=== PATIENT | male | born 1945 | race Caucasian/White ===

== ENCOUNTER → 2016-12-24 | Outpatient (CLI) | payer OTHER | LOC: BMCIMAGING 16:13 | PROVIDERS: ATTEND Emergency Medicine | DX: J93.9 Pneumothorax, unspecified (principal); S22.41XA Multiple fractures of ribs, right side, initial encounter for closed fracture; M48.54XA Collapsed vertebra, not elsewhere classified, thoracic region, initial encounter for fracture ==

== ENCOUNTER 2016-12-26 13:53 | Inpatient (IN) | payer OTHER ==
--- NOTE | 2016-12-26 14:17 | EDPHY ---
H & P Smoking Status: Never smoked Time Seen by Provider: 12/26/16 14:04 HPI/ROS: CHIEF COMPLAINT: Known pneumothorax HISTORY OF PRESENT ILLNESS: 71-year-old male history of Parkinson's disease, no history of anticoagulant use, sustained a mechanical fall 2 days ago injuring his right wrist and right ribs. Subsequently seen at [facility] diagnosed with multiple right-sided rib fractures and small apical pneumothorax, told to return in 2 days for recheck. Went to urgent care today for recheck in because he had worsening symptoms he is referred to the emergency department for further evaluation. Also complaining of right wrist pain which was not initially present 2 days ago. This was a mechanical not a syncopal episode according to the . He did impact his head as well. No headache. No nausea or vomiting. No midline C-spine pain. No change in mental status according to . PRIMARY CARE PROVIDER:Dr. Varsha Rea REVIEW OF SYSTEMS: A ten point review of systems was performed and is negative with the exception of the items mentioned in the HPI PAST MEDICAL & SURGICAL HISTORY: Parkinson's disease. Right femoral neck fracture history. SOCIAL HISTORY:nonsmoker lives with PHYSICAL EXAM (Prior to examination, patient consented to physical exam, hands were washed and my usual and customary physical exam procedures followed) 1) GENERAL: thin, alert and oriented. 2) HEAD: Normocephalic, atraumatic 3) HEENT: Pupils equal, round, reactive to light bilaterally. Sclera anicteric. Right facial and mandible ecchymosis with no underlying pain. Teeth are well aligned. No TMJ pain. No raccoon eyes no Cevallos sign. No rhinorrhea. No hemotympanum. No otorrhea. 4) NECK: Full range of motion . No JVD. No tracheal deviation. 5) LUNGS: Decreased breath sounds right side, tender to palpation right ribs. No crepitus. 6) HEART: Regular rate and rhythm, no murmur, no heave, no gallop. 7) ABDOMEN: No guarding, no rebound, no focal tenderness, negative McBurney's, negative Mcnally's, negative Rovsing's, negative peritoneal sign, no signs of trauma. 8) MUSCULOSKELETAL: right upper extremity: Soft tissue swelling and tender to palpation distal radius. Intact skin. Radial ulnar median nerve function intact. otherwise, moving all extremities, no focal areas of tenderness, no obvious trauma. No peripheral edema or discoloration. 9) BACK: No CVA tenderness,. 10) SKIN: No rash, no petechiae. 11) Psychiatric: Patient is oriented X 3, there is no agitation. DIFFERENTIAL DIAGNOSIS: no particular include but limited to rib fracture, pneumothorax, hemothorax, wrist fracture (April,Clementine Ivania) Constitutional: Initial Vital Signs Temperature (C) 36.8 C 12/26/16 14:01 Heart Rate 87 12/26/16 14:01 Respiratory Rate 16 12/26/16 14:01 Blood Pressure 68/52 L 12/26/16 14:01 O2 Sat (%) 89 L 12/26/16 14:01 O2 Delivery Mode Nasal Cannula O2 (L/minute) 2.5 Allergies/Adverse Reactions: No Known Allergies Allergy (Verified 12/26/16 13:59) Home Medications: Medication Instructions Recorded Baclofen [Baclofen 10 mg (*)] 10 - 20 mg PO HS 12/16/14 Carbidopa/Levo Cr 50/200Mg 1 tab PO 08,12,16,20 12/16/14 [SINEMET CR 50/200 MG (*)] Entacapone [Comtan] 200 mg PO 08,12,16,20 12/16/14 Multivitamins [Multivitamin (*)] 1 each PO DAILY 12/16/14 Venlafaxine Xr [Effexor Xr 37.5MG 37.5 mg PO DAILY 12/16/14 (*)] clonazePAM [Klonopin (*)] 0.5 mg PO HS 12/16/14 Pantoprazole Sodium [Protonix 40mg 40 mg PO DAILY #30 tab 12/27/14 (*)] Acetaminophen [Tylenol Extra 500 mg PO Q6H PRN #20 tablet 12/28/14 Strength] Droxidopa [Northera] 100 mg PO 08,14,20 06/25/15 Hydrocortisone 0.5% 1 jd TP BID #0 cream 07/04/15 [Hydrocortisone 0.5% cream (*)] Polyethylene Glycol 3350 [Miralax 17 gm PO DAILY PRN #0 pkt 07/04/15 17 gm (*)] Sennosides/Docusate Sodium 1 - 2 tab PO BID #0 tab 07/04/15 [Senokot-S] Quetiapine Fumarate 12/26/16 MDM/Departure - MDM Diagnostics: Imaging Impressions Chest CT 12/26/16 14:13 Impression: 1. Large right tension pneumothorax with a small right pleural effusion. 2. Mildly displaced right third through seventh rib fractures with a probable nondisplaced right eighth rib fracture. The right fourth rib is also fractured posteriorly. 3. Additional findings as above. Findings discussed with Papi Iqbal PA-C on 12/26/2016 with preliminary findings at 1509 and final report at [address] 12/26/16 14:13 Impression: 1. No acute intracranial findings. 2. Diffuse cerebral atrophy with scattered periventricular and subcortical low attenuation consistent with chronic microvascular ischemic gliosis. Findings discussed with Papi Iqbal PA-C on 12/26/2016 at 1512 hours. Wrist X-Ray 12/26/16 14:13 Impression: 1. Chip avulsion from the the radial styloid, uncertain age. 2. Extensive chondrocalcinosis. Procedures: Procedure: Fracture treatment. The patient had x-rays taken and I confirmed that the patient had a fractured right radial styloid . a Velcro thumb spica splint was applied by ER forklift technician. After application of the splint I returned and re-examined the patient. The splint was adequately immobilizing the joint and distal to the splint the patient's circulation and sensation were intact. Patient shows no signs of compartment syndrome. Was given orthopedic precautions. (Clementine Iqbal Ivania ) Medications Given: Discontinued Medications Fentanyl (Sublimaze) 100 mcg IVP ONCE ONE Stop: 12/26/16 16:06 Last Admin: 12/26/16 16:15 Dose: 100 mcg Ketorolac Tromethamine (Toradol) 30 mg IVP EDNOW ONE Stop: 12/26/16 14:40 Last Admin: 12/26/16 14:51 Dose: 30 mg Lorazepam (Ativan Injection) 1 mg IVP EDNOW ONE Stop: 12/26/16 14:40 Last Admin: 12/26/16 14:51 Dose: 1 mg Morphine Sulfate (Morphine) 2 mg IVP EDNOW ONE Stop: 12/26/16 14:26 Last Admin: 12/26/16 14:33 Dose: 2 mg ED Course/Re-evaluation: 3:05 p.m.: Discussed the CT imaging results with Dr. Luis Petty showing a large right-sided pneumothorax. Trauma surgery has been paged (Clementine Iqbal) I evaluated this patient with Papi iqbal. We reviewed the CT scan revealing a much larger pneumothorax. We have consulted surgery and chest tube has been placed patient is comfortable and will go up to the floor. (Luis Petty) - Depart Disposition: [facility] Inpatient Acute Clinical Impression: Pneumothorax, right, History of Parkinson's disease Multiple rib fractures Qualifiers: Encounter type: initial encounter Fracture type: closed Laterality: right Qualified Code(s): S22.41XA - Multiple fractures of ribs, right side, initial encounter for closed fracture Radial styloid fracture Qualifiers: Encounter type: initial encounter Fracture type: closed Fracture alignment: displaced Laterality: right Qualified Code(s): S52.511A - Displaced fracture of right radial styloid process, initial encounter for closed fracture Condition: Fair
[2016-12-26] MEDS ORDERED: IOPAMIDOL (ISOVUE-300) 100 ML BTL IV ONE (14:25)
[2016-12-26] MEDS ORDERED: KETOROLAC 30 MG/1 ML SDV IVP ONE (14:39)
[2016-12-26] MEDS ORDERED: LORazepam 2 MG/ML INJ IVP ONE (14:39)
[2016-12-26 15:14] LABS: % IMMATURE GRANULYOCYTES 0.4 % (0.0-1.1); ABSOLUTE IMMATURE GRANULOCYTES 0.03 10^3/uL (0.00-0.10); ADD DIFF? NO; ADD MORPH? NO; ADD SCAN? NO; ATYPICAL LYMPHOCYTE FLAG 10 (0-99); FRAGMENT RBC FLAG 0 (0-99); HEMATOCRIT 41.3 % (40.0-51.0); HEMOGLOBIN 13.8 g/dL (13.7-17.5); LEFT SHIFT FLG 0 (0-99); LIPEMIA HEMOLYSIS FLAG 80 (0-99); MEAN CELL HEMOGLOBIN 30.3 pg (27.9-34.1); MEAN CELL HEMOGLOBIN CONCENTR. 33.4 g/dL (32.4-36.7); MEAN CELL VOLUME 90.6 fL (81.5-99.8); MEAN PLATELET VOLUME 9.4 fL (8.7-11.7); PLATELET CLUMPS FLAG 0 (0-99); PLATELET COUNT 236 10^3/uL (150-400); RED BLOOD CELL COUNT 4.56 10^6/uL (4.40-6.38)
[2016-12-26 15:19] LABS: INR 1.11 (0.83-1.16); PROTIME(PATIENT) 14.2 SEC (12.0-15.0)
[2016-12-26 15:20] LABS: ANION GAP 8 mEq/L (8-16); APTT 37.2 SEC (23.0-38.0); CALCIUM 9.2 mg/dL (8.5-10.4); CARBON DIOXIDE 23 mEq/l (22-31); CHLORIDE 106 mEq/L (97-110); CREATININE 0.9 mg/dL (0.7-1.3); GLOMERULAR FILTRATION RATE > 60; GLUCOSE 108 mg/dL (70-100); POTASSIUM 3.9 mEq/L (3.5-5.2); SODIUM 137 mEq/L (134-144)
[2016-12-26] MEDS ORDERED: fentaNYL 100 MCG/2 ML INJ ONE (15:35)
[2016-12-26] MEDS ORDERED: fentaNYL 100 MCG/2 ML INJ IVP ONE (16:05)
--- NOTE | 2016-12-26 16:59 | GHP ---
[f rep st] HISTORY AND PHYSICAL DATE OF ADMISSION: 12/26/2016 CHIEF COMPLAINT: Shortness of breath, status post mechanical fall. HISTORY OF PRESENT ILLNESS: This is a 71-year-old male with fairly advanced Parkinson's disease who presents to the emergency department today as a followup from a fall 2 days ago. Per the patient's report and chart review, he sustained a mechanical fall 2 days ago, landing on his right side, inju ring his right wrist and right ribs. He was subsequently seen by his primary care team at [facility] and diagnosed with multiple right-sided rib fractures and, at that time, a small apica l pneumothorax. He was told to follow up in 2 days for a recheck. He returned to [facility] today because he had worsening symptoms including shortness of breath and pain, an d given the fact that he had progressed, was referred to the [facility] Emergency Department for furt her evaluation. In the emergency department, he was found to be short of breath and hypoxic at room air and was subsequently placed on supplemental oxygen. He complained of right-sided chest and wri st pain, subsequently had imaging of his chest including a plain film and a CT scan. Briefly, the C T scan of his chest confirmed multiple right-sided rib fractures numbering 7 and 8 with a large righ t-sided pneumothorax with possible tension physiology and a small right-sided effusion. On greeting the patient, he is currently on supplemental oxygen. He is not complaining of shortness of breath and does not appear to be using any other accessory muscles for breathing. He states anna t he did not lose consciousness with his fall and that his main pain at this point in time is right- sided chest pain, right wrist pain 7/10 and worse in intensity, worse with inspiration, better with IV narcotics. PAST MEDICAL HISTORY: Advanced Parkinson's disease and a history of a right femoral neck fracture. PAST SURGICAL HISTORY: Repair of right femoral neck fracture. CURRENT MEDICATIONS: Include baclofen, Sinemet, entacapone, multivitamins, venlafaxine, Klonopin, P rotonix, acetaminophen, droxidopa, hydrocortisone, polyethylene glycol, senna and quetiapine. ALLERGIES: No known drug allergies. REVIEW OF SYSTEMS: A full 10-point review was performed and unless explicitly stated above, is othe rwise negative. PHYSICAL EXAMINATION: VITAL SIGNS: Blood pressure 120/54. Heart rate 96, and he is 94% on 4 L nasa l cannula. GENERAL: He is alert and oriented in no acute distress. Head has no signs of trauma, a lthough he does have what appears to be a healing lesion on his lip, which he states has been there for some time. I see no visible signs of trauma on his head. HEENT: His pupils are equal, round, and reactive to light and accommodation. His extraocular movements are intact. NECK: Soft, supple , nontender to palpation. No crepitus. No midline C-spine tenderness. CHEST: Tender on the right side. No crepitus appreciated. Lung sounds are distant on the right side. He is not using access ory muscles for breathing. CV: He has a regular rate and rhythm without any murmurs. ABDOMEN: So ft, nondistended, nontender. His pelvis is stable to both AP and lateral compression. EXTREMITIES: Warm, well perfused, and without any obvious signs of trauma. LABORATORY DATA: White blood cell count 7, H and H 13 and 41, platelets 236. Coags negative with a n INR of 1.1. Chemistries unremarkable with the exception of an elevated glucose at 108. CT scan o f his head shows no acute intracranial findings; however, it does show diffuse cerebral atrophy with scattered periventricular and subcortical low attenuation consistent with chronic microvascular isc hemic gliosis. Chest CT, again as stated above, shows large right-sided pneumothorax with small right-sided effusio n, question tension physiology with 3rd through 7th rib fractures and a probable line displaced righ t 8th rib fracture as well. Wrist: Plain film shows chip avulsion from the radial styloid, uncertain age and the extensive ramona drocalcinosis. ASSESSMENT AND PLAN: A 71-year-old male, status post mechanical fall, now with worsening right-side d pneumothorax with significant rib fractures. I discussed these findings with the patient in the t rauma bay. My recommendation was to place a chest tube now, given the fact that he may have tension physiology. In addition, he has a significant right-sided pneumothorax with small effusion. Plevikram e see separate dictation note for this. In addition, the patient will be admitted to the trauma service, given his significant rib fractures for pain control. I did discuss briefly with him the importance of incentive spirometry and pulmon sebastian toilet, given the significant amount rib fractures and the increased mortality in older individu als. He stated understanding of this and will subsequently be admitted to the trauma service. /[id number]/MODL
[2016-12-26] MEDS ORDERED: D5W 1/2 NS 1,000 ML IV SCH (17:00)
--- NOTE | 2016-12-26 18:19 | GOP ---
[f rep st] OPERATIVE REPORT DATE OF OPERATION: 12/26/2016 SURGEON: Dylon Hoyos MD ELECTRONICS SCALE TESTER: None. ANESTHESIA: Local with IV sedation. PREOPERATIVE DIAGNOSIS: Right-sided hemopneumothorax with tension physiology. POSTOPERATIVE DIAGNOSIS: Right-sided hemopneumothorax with tension physiology. PROCEDURE PERFORMED: Right chest tube thoracostomy placement. FINDINGS: Good benton of air upon entering the patient's chest. Minimal effusion. Attached appropriately. SPECIMENS: None. DESCRIPTION OF PROCEDURE: The patient was greeted in the trauma bay. Risks, benefits, and alternatives were discussed. Consent was signed. Prior to proceeding, a World Health Organization time-out was performed with patient participation ending with all in agreement. The patient's right chest was then prepped and draped in typical sterile fashion. I anesthetized the 5th and 6th intercostal spaces. I then made an approximate 2 cm incision, dissected up through into the 5th intercostal space, and bluntly entered the patient's chest cavity. Once in the chest cavity, I received a large benton of air, through which I placed a 28-[place] straight chest tube into the chest, which went in without issue. I attached it to the skin with an 0 silk suture and then to Pleur-evac suction. Patient tolerated the procedure well without any intraprocedural complications. DRAINS: 28-[place] straight chest tube to the right chest attached to Pleur- evac suction. /[id number]/MODL MTDD
--- NOTE | 2016-12-26 21:09 | GCON ---
[f rep st] CONSULTATION MEDICINE CONSULTATION DATE OF CONSULTATION: 12/26/2016 REFERRING PHYSICIAN: Dylon Hoyos MD REASON FOR CONSULTATION: This is a medicine consultation at the request of Dr. Dylon Hoyos for general management of issues including rib fractures and end-stage Parkinson disease. CHIEF COMPLAINT: Fall and shortness of breath. HISTORY: This is a 71-year-old man who has a past medical history of advanced Parkinson disease wit h recurrent falls who presents to the surgical service status post a mechanical fall 2 days prior to admission. The patient notes that he landed on his right side, injuring his right wrist and his ri ght ribs. He was seen initially by his primary care physician who diagnosed him with multiple right rib fractures and a small apical pneumothorax, at which time he was sent home with a wrist brace an d plan to return in 2 days for followup. Upon arrival, he was complaining of worsening symptoms inc luding worsening shortness of breath and worsening pain. The Urgent Care did send him over to [facility] for further evaluation where he was found to be hypoxic with an increased in size right-sided pneumothorax with possible early tension physiology, as well as a small right-si ded effusion. He was treated with a chest tube and admitted for ongoing management. At the time of my evaluation, patient is comfortable though slightly somnolent. He denies shortness of breath. His main complaint to me is actually his wrist pain. He does note that he has been fal ling more and more frequently and expresses some concerns about what he is going to do when he goes back home as he feels that, without a significant amount help, he has difficulty ambulating. PAST MEDICAL HISTORY: Includes: 1. Parkinson disease, fairly advanced. 2. Depression. 3. Recurrent falls. 4. Insomnia. PAST SURGICAL HISTORY: Includes bilateral hip arthroplasties. SOCIAL HISTORY: Patient lives with his and is independent. He does note some increasing diffi culty with this and notes increased falls. He is a nonsmoker. Drinks alcohol socially. FAMILY HISTORY: Parents are . Otherwise noncontributory. REVIEW OF SYSTEMS: 10-point review of systems obtained negative except as per HPI. HOME MEDICATIONS: 1. Klonopin. 2. Venlafaxine. 3. Senna. 4. Quetiapine. 5. MiraLAX. 6. Pantoprazole. 7. Multivitamin. 8. Hydrocortisone cream. 9. Entacapone. 10. Droxidopa. 11. Sinemet. 12. Baclofen. 13. Tylenol. ALLERGIES: No known drug allergies. PHYSICAL EXAMINATION: VITAL SIGNS: BP 132/78, heart rate 67, respiratory rate 17, O2 sats 95% on 3 L. Temperature is 36.6. GENERAL APPEARANCE: This is a thin, chronically ill-appearing male. He is awake and alert. He is in no acute distress. EYES: Anicteric. HENT: Oropharynx clear. CARDIOVA SCULAR: RRR. No MRG. No edema. PULMONARY: Decreased breath sounds at the bases with crackles pre sent. There is a chest tube in place on the right. ABDOMEN: Soft, nontender. Positive bowel sound s. EXTREMITIES: No clubbing, cyanosis, or edema. SKIN: Warm, dry. Well perfused. NEURO/PSYCH: T he patient is mildly encephalopathic and somnolent but otherwise oriented and appropriate. CLINICAL DATA: Labs reviewed. Significant for white blood cell count 7.7, hematocrit is 41.3. Coa gs are within normal limits. Chemistry is remarkable only for glucose of 108. Chest x-ray, personally reviewed and interpreted, shows right thoracostomy tube placement with near complete resolution of right pneumothorax, residual right lower lobe atelectasis. Wrist x-ray shows chip avulsion from the radial styloid. Initial chest CT shows large right tension pneumothorax and small pleural effusion. ASSESSMENT AND PLAN: This is a 71-year-old man with Parkinson disease, status post mechanical fall with multiple rib fractures and associated tension pneumothorax. 1. Tension pneumothorax. The patient did present with initially CT evidence of large right-sided te nsion pneumothorax. This in setting of multiple displaced rib fractures. Chest tube was placed wit h nearly complete resolution of pneumothorax. He is currently hemodynamically stable and requiring only minimal oxygen. Surgery is managing. 2. Wrist pain with an associated tip avulsion from the radial styloid of uncertain age noted on x-r ay. He is in a brace. Pain management with opioids as necessary. 3. Parkinson disease. This is relatively advanced. He does have cognitive deficits apparently chr onically as result of this. His home medications have not yet been able to be confirmed but will ne ed to be resumed once they are confirmed. 4. Recurrent falls. It sounds as if the patient has been increasingly debilitated in relation to h is Parkinson disease. He may indeed require transition to [facility] facility; this remains to be seen. Physical Therapy and Occupational Therapy to be involved. DISPOSITION: Inpatient status. Suspect patient will need greater than 48 hours stay for evaluation and management of above. Patient is new to my care. Old records reviewed. Summary is as per HPI and past medical history. Care plan reviewed with Dr. Hoyos including plans for management of his pneumothorax. /[id number]/MODL
[2016-12-26] MEDS: IBUPROFEN 600 MG TAB PO SCH (22:04)
[2016-12-27] MEDS: IBUPROFEN 600 MG TAB PO SCH ×3 (04:45→22:20)
[2016-12-27 05:13] LABS: ANION GAP 7 mEq/L (8-16); CALCIUM 9.1 mg/dL (8.5-10.4); CARBON DIOXIDE 26 mEq/l (22-31); CHLORIDE 108 mEq/L (97-110); CREATININE 0.9 mg/dL (0.7-1.3); GLOMERULAR FILTRATION RATE > 60; GLUCOSE 92 mg/dL (70-100); POTASSIUM 4.3 mEq/L (3.5-5.2); SODIUM 141 mEq/L (134-144)
[2016-12-27] MEDS: HYDROCODONE/APAP 5/325 TAB PO PRN ×2 (10:52→15:57)
[2016-12-27] MEDS ORDERED: SENNOSIDES/DOCUSATE SODIUM TAB PO PRN (11:11)
[2016-12-27] MEDS ORDERED: PANTOPRAZOLE SODIUM 40 MG TAB PO PRN (11:11)
[2016-12-27] MEDS ORDERED: POLYETHYLENE GLYCOL 3350 17 GM PKT PO PRN (11:11)
--- NOTE | 2016-12-27 11:39 | SOAPPROG ---
SOAP Progress Note Assessment/Plan: Assessment: Plan: Subjective: "where were you?" awake and mildly confused Objective: Vital Signs Temp Pulse Resp BP Pulse Ox 36.7 C 64 12 140/75 H 94 12/27/16 07:39 12/27/16 07:39 12/27/16 07:39 12/27/16 07:39 12/27/16 07:39 Laboratory Results 12/27/16 04:48 12/26/16 12/27/16 12/28/16 05:59 05:59 05:59 Intake Total 240 775 Output Total 275 70 Balance -35 705 PT 14.2 SEC (12.0-15.0) 12/26/16 14:16 INR 1.11 (0.83-1.16) 12/26/16 14:16 - Pending Discharge Pending Discharge Within 24 Hours: No Pending Discharge Within 48 Hours: No Physical Exam - Physical Exam General Appearance: no apparent distress Neck: non-tender Respiratory: decreased breath sounds (right base) Cardiac/Chest: regular rate, rhythm, other (CT without air leak/minimal sanguinous drainage) Abdomen: non-tender, soft Neuro/Psych: alert (O x 2), motor weakness, cognition abnormalities ICD10 Worksheet Patient Problems: Problems Problem Status Onset History of Parkinson's disease Acute Multiple rib fractures Acute Pneumothorax, right Acute Radial styloid fracture Acute Acute encephalopathy Acute Acute right hip pain Acute Anemia Acute Closed right hip fracture Acute Hypoxia Acute Parkinson disease Acute
[2016-12-27] MEDS: CARBIDOPA/LEVO CR 50 MG/200 MG TAB PO SCH ×3 (11:47→20:22)
[2016-12-27] MEDS: MULTIVITAMINS 1 EACH TAB PO SCH (11:47)
[2016-12-27] MEDS: ENTACAPONE 200 MG TAB PO SCH ×3 (11:47→20:23)
[2016-12-27] MEDS: DROXIDOPA 200 MG PO SCH ×3 (12:16→20:25)
--- NOTE | 2016-12-27 13:21 | HOSPPROG ---
Hospitalist Progress Note Assessment/Plan: 71y male with SOB and chest pain. This is my first encounter with this pt. Chart reviewed. D/W Dr De La Rosa. # Tension Pneumo CT in place managed per trauma #Pain cont supportive care # Wrist pain cont brace # Parkinson's restart home meds # Recurrent falls PT/OT may need SNF # Dispo unclear, will need continued in hospital supportive care Subjective: Still having chest discomfort and tube site. Doesn't feel well. Pain with moving. Objective: Vital Signs Temp Pulse Resp BP Pulse Ox 36.8 C 62 12 126/69 H 92 12/27/16 12:00 12/27/16 12:00 12/27/16 12:00 12/27/16 12:00 12/27/16 12:00 Laboratory Results 12/27/16 04:48 12/26/16 12/27/16 12/28/16 05:59 05:59 05:59 Intake Total 240 775 Output Total 275 70 Balance -35 705 PT 14.2 SEC (12.0-15.0) 12/26/16 14:16 INR 1.11 (0.83-1.16) 12/26/16 14:16 - Physical Exam Constitutional: chronically ill appearing, uncomfortable, cachectic Eyes: PERRL, anicteric sclera, EOMI Ears, Nose, Mouth, Throat: moist mucous membranes, hearing normal, ears appear normal Cardiovascular: No JVD, No tachycardia, No edema Respiratory: no respiratory distress, no rales or rhonchi, reduced air movement Gastrointestinal: No tenderness, No ascites, No guarding Skin: warm, abrasion, No erythema Musculoskeletal: pain with ROM, muscular tenderness, generalized weakness Neurologic: AAOx3 Psychiatric: not anxious, poor insight, poor judgement, poor memory ICD10 Worksheet Patient Problems: Problems Problem Status Onset Parkinson disease Acute Closed right hip fracture Acute Anemia Acute Acute encephalopathy Acute Hypoxia Acute Acute right hip pain Acute Pneumothorax, right Acute Multiple rib fractures Acute History of Parkinson's disease Acute Radial styloid fracture Acute
[2016-12-27] MEDS: HYDROCORTISONE 0.5% CREAM TP SCH ×2 (15:51→20:24)
[2016-12-27] MEDS: clonazePAM 0.5 MG TAB PO SCH (20:22)
[2016-12-27] MEDS: GABAPENTIN 100 MG CAP PO SCH (20:22)
[2016-12-27] MEDS: traZODone 50 MG TAB PO SCH (20:23)
[2016-12-27] MEDS: QUEtiapine FUMARATE 25 MG TAB PO SCH (20:23)
[2016-12-27] MEDS ORDERED: BACLOFEN 10 MG TAB PO SCH (21:00)
[2016-12-28] MEDS: HYDROCODONE/APAP 5/325 TAB PO PRN ×3 (07:56→17:19)
[2016-12-28] MEDS: ENTACAPONE 200 MG TAB PO SCH ×4 (07:57→21:27)
[2016-12-28] MEDS: IBUPROFEN 600 MG TAB PO SCH ×3 (07:57→21:26)
[2016-12-28] MEDS: CARBIDOPA/LEVO CR 50 MG/200 MG TAB PO SCH ×4 (07:57→21:26)
[2016-12-28] MEDS: VENLAFAXINE XR 75 MG CAP PO SCH (07:57)
[2016-12-28] MEDS: MULTIVITAMINS 1 EACH TAB PO SCH (09:14)
--- NOTE | 2016-12-28 10:23 | TRAUMAPN ---
Assessment/Plan: no overnight events. AVSS. uncomfortable, frail. heart reg. lungs diminished bilat - very small air leak, tube dynamic. abd soft, nontender. ext nontender, SCD. CXR small right PTX with small residual dependent fluid. fall, mult right rib fx, hemopneumothorax s/p CT placement - will keep tube on water seal given leak/small PTX/atelectasis - not ready for removal yet - will enlist RT to help with pulm toilet - add IS. parkinsons/deconditioning - cont PT/OT - anticipate SNF placement - very frail. care plan reviewed with floor nurse. Objective: Vital Signs Temp Pulse Resp BP Pulse Ox 36.6 C 62 18 148/76 H 92 12/28/16 08:00 12/28/16 08:00 12/28/16 08:00 12/28/16 08:00 12/28/16 08:00 Laboratory Results 12/27/16 04:48 12/27/16 12/28/16 12/29/16 05:59 05:59 05:59 Intake Total 240 1015 Output Total 275 1010 610 Balance -35 5 -610 PT 14.2 SEC (12.0-15.0) 12/26/16 14:16 INR 1.11 (0.83-1.16) 12/26/16 14:16
[2016-12-28] MEDS: HYDROCORTISONE 0.5% CREAM TP SCH ×2 (11:37→16:21)
[2016-12-28] MEDS ORDERED: traMADol 50 MG TAB PO PRN (12:31)
[2016-12-28] MEDS ORDERED: BACLOFEN 10 MG TAB PO PRN (12:33)
[2016-12-28] MEDS ORDERED: HEPARIN 5,000 UNIT/0.5 ML SYR SC SCH (14:00)
--- NOTE | 2016-12-28 15:13 | HOSPPROG ---
Hospitalist Progress Note Assessment/Plan: 71y male with end stage PD, p/w hypoxia, SOB and chest pain after a fall. This is my first encounter with this pt. Found to have R PTX, small R pleural effusion. Chart reviewed. # Tension Pneumo CT in place managed per trauma #Pain cont supportive care added Tramadol and increased his home Baclofen # Wrist pain cont brace # Parkinson's restart home meds end stage and pt has significant b/l confusion # Recurrent falls PT/OT likely will need SNF but no care notes thus far # Dispo unclear, will need continued in hospital supportive care Subjective: Reports R sided rib pains. Objective: Vital Signs Temp Pulse Resp BP Pulse Ox 97.6 F 76 24 H 102/44 L 92 12/28/16 12:33 12/28/16 12:33 12/28/16 12:33 12/28/16 12:33 12/28/16 11:07 Laboratory Results 12/27/16 04:48 12/27/16 12/28/16 12/29/16 05:59 05:59 05:59 Intake Total 240 1015 Output Total 275 1010 610 Balance -35 5 -610 PT 14.2 SEC (12.0-15.0) 12/26/16 14:16 INR 1.11 (0.83-1.16) 12/26/16 14:16 - Physical Exam Constitutional: uncomfortable, cachectic Ears, Nose, Mouth, Throat: moist mucous membranes Cardiovascular: regular rate and rhythym, no murmur, rub, or gallop Respiratory: no respiratory distress, no rales or rhonchi, other (unable to sit up) Genitourinary: no bladder fullness Skin: warm, normal color ICD10 Worksheet Patient Problems: Problems Problem Status Onset History of Parkinson's disease Acute Multiple rib fractures Acute Pneumothorax, right Acute Radial styloid fracture Acute Acute encephalopathy Acute Acute right hip pain Acute Anemia Acute Closed right hip fracture Acute Hypoxia Acute Parkinson disease Acute
[2016-12-28] MEDS: DROXIDOPA 200 MG PO SCH ×2 (15:21→17:07)
[2016-12-28 17:36] LABS: % IMMATURE GRANULYOCYTES 0.2 % (0.0-1.1); ABSOLUTE IMMATURE GRANULOCYTES 0.01 10^3/uL (0.00-0.10); ADD DIFF? NO; ADD MORPH? NO; ADD SCAN? NO; ATYPICAL LYMPHOCYTE FLAG 0 (0-99); FRAGMENT RBC FLAG 0 (0-99); LEFT SHIFT FLG 0 (0-99); LIPEMIA HEMOLYSIS FLAG 80 (0-99); MEAN CELL HEMOGLOBIN 30.4 pg (27.9-34.1); MEAN CELL HEMOGLOBIN CONCENTR. 33.3 g/dL (32.4-36.7); MEAN CELL VOLUME 91.1 fL (81.5-99.8); MEAN PLATELET VOLUME 8.7 fL (8.7-11.7); PLATELET CLUMPS FLAG 0 (0-99); PLATELET COUNT 230 10^3/uL (150-400); RED BLOOD CELL COUNT 4.28 10^6/uL (4.40-6.38); RED CELL DISTRIBUTION WIDTH 12.9 % (11.5-15.2)
[2016-12-28] MEDS: traZODone 50 MG TAB PO SCH (21:22)
[2016-12-28] MEDS: GABAPENTIN 100 MG CAP PO SCH (21:26)
[2016-12-28] MEDS: QUEtiapine FUMARATE 25 MG TAB PO SCH (21:26)
[2016-12-28] MEDS: clonazePAM 0.5 MG TAB PO SCH (21:27)
[2016-12-29] MEDS: DROXIDOPA 200 MG PO SCH ×4 (00:39→15:18)
[2016-12-29] MEDS: IBUPROFEN 600 MG TAB PO SCH ×2 (06:41→14:15)
[2016-12-29] MEDS ORDERED: NS 500 ML IV ONE (06:53)
[2016-12-29] MEDS: HYDROCODONE/APAP 5/325 TAB PO PRN ×3 (08:02→19:58)
[2016-12-29] MEDS: CARBIDOPA/LEVO CR 50 MG/200 MG TAB PO SCH ×4 (08:03→20:04)
[2016-12-29] MEDS: ENTACAPONE 200 MG TAB PO SCH ×4 (08:03→20:04)
[2016-12-29] MEDS: VENLAFAXINE XR 75 MG CAP PO SCH (08:03)
[2016-12-29] MEDS: MULTIVITAMINS 1 EACH TAB PO SCH (08:03)
[2016-12-29] MEDS: HYDROCORTISONE 0.5% CREAM TP SCH ×2 (08:08→20:08)
--- NOTE | 2016-12-29 12:54 | HOSPPROG ---
Hospitalist Progress Note Assessment/Plan: Rema Brennan is a 71 y/o amle with advanced Parkinsons who presented to the ER as a follow up from falling. He had a mechanical fall, landing on his right side. He was c/o shortness of breath. Today is my first encounter with the patient. Chart reviewed. # Tension Pneumothorax with associated rib fx CT in place managed per trauma reviewed today's chest xray myself/ shows improvement of aeration, tiny r pneumothorax/ unchanged #Rib fractures will need encouragement to C,T,D,B #Pain cont supportive care added Tramadol and increased his home Baclofen #Hypotension was given fluid bolus this a.m. # Wrist pain cont brace # Parkinson's home meds end stage and pt has significant b/l confusion # Recurrent falls PT/OT likely will need SNF but no care notes thus far # Dispo: would benefit from SNF but patient only wants to go home Subjective: Rema has some pain with deep breathing otherwise feels well. Objective: Vital Signs Temp Pulse Resp BP Pulse Ox 36.5 C 68 15 97/54 L 95 12/29/16 12:00 12/29/16 12:00 12/29/16 12:00 12/29/16 12:00 12/29/16 12:00 Laboratory Results 12/28/16 17:29 12/27/16 04:48 12/28/16 12/29/16 12/30/16 05:59 05:59 05:59 Intake Total 1015 100 Output Total 1010 995 Balance 5 -895 PT 14.2 SEC (12.0-15.0) 12/26/16 14:16 INR 1.11 (0.83-1.16) 12/26/16 14:16 - Physical Exam Constitutional: chronically ill appearing, uncomfortable Eyes: PERRL Ears, Nose, Mouth, Throat: hearing normal Cardiovascular: regular rate and rhythym Respiratory: no respiratory distress, reduced air movement, other (CT with no air leak) Gastrointestinal: normoactive bowel sounds Skin: warm Musculoskeletal: generalized weakness Neurologic: AAOx3 Psychiatric: interacting appropriately, not anxious ICD10 Worksheet Patient Problems: Problems Problem Status Onset History of Parkinson's disease Acute Multiple rib fractures Acute Pneumothorax, right Acute Radial styloid fracture Acute Acute encephalopathy Acute Acute right hip pain Acute Anemia Acute Closed right hip fracture Acute Hypoxia Acute Parkinson disease Acute
[2016-12-29] MEDS ORDERED: LACTULOSE 20 GM/30 ML UDCUP PO PRN (14:43)
[2016-12-29] MEDS ORDERED: BISACODYL 10 MG SUPP PR PRN (14:43)
[2016-12-29] MEDS ORDERED: MAGNESIUM HYDROXIDE 30 ML UDCUP PO PRN (14:43)
[2016-12-29] MEDS: LIDOCAINE 5% 1 EA PATCH TD SCH (15:18)
[2016-12-29] MEDS: MIDODRINE HCL 5 MG TAB PO SCH ×2 (17:09→20:06)
--- NOTE | 2016-12-29 17:51 | TRAUMAPN ---
- Problem/Surgery Performed (1) History of Parkinson's disease Assessment/Plan: Appreciate medical management (stable on current regimen). Fall risk mod-high (2) Multiple rib fractures Assessment/Plan: cough, deep breathe, IS, pulmonary toilet, lidoderm patches Qualifiers: Encounter type: initial encounter Fracture type: closed Laterality: right Fracture healing: F Qualified Code(s): S22.41XA - Multiple fractures of ribs, right side, initial encounter for closed fracture (3) Pneumothorax, right Assessment/Plan: unchanged ptx on xray. No air leak. Good respiratory variation. Chest tube removed. PT unable to cooperate. CXR pending (4) Radial styloid fracture Assessment/Plan: splinted. Good pain control. ortho f/u as outpt Qualifiers: Encounter type: initial encounter Fracture type: closed Open fracture type: O Fracture alignment: displaced Laterality: right Fracture healing: F Qualified Code(s): S52.511A - Displaced fracture of right radial styloid process, initial encounter for closed fracture Assessment/Plan: anticipate d/c n 48 hr. pt eval for home safety Subjective: Mechanical fall, right rib fx with tension ptx now resolved/stable Objective: Vital Signs Temp Pulse Resp BP Pulse Ox 36.9 C 72 15 96/71 L 94 12/29/16 16:00 12/29/16 16:00 12/29/16 16:00 12/29/16 16:00 12/29/16 16:00 Laboratory Results 12/28/16 17:29 12/27/16 04:48 12/28/16 12/29/16 12/30/16 05:59 05:59 05:59 Intake Total 1015 100 450 Output Total 1010 995 350 Balance 5 -895 100 PT 14.2 SEC (12.0-15.0) 12/26/16 14:16 INR 1.11 (0.83-1.16) 12/26/16 14:16 Physical Exam - Physical Exam General Appearance: alert, no apparent distress Neck: non-tender Respiratory: lungs clear Cardiac/Chest: normal peripheral pulses, regular rate, rhythm Skin: normal color Time Spent w/Patient (minutes): 40
[2016-12-29] MEDS: clonazePAM 0.5 MG TAB PO SCH (19:59)
[2016-12-29] MEDS: GABAPENTIN 100 MG CAP PO SCH (20:00)
[2016-12-29] MEDS: traZODone 50 MG TAB PO SCH (20:02)
[2016-12-29] MEDS: QUEtiapine FUMARATE 25 MG TAB PO SCH (20:06)
[2016-12-29] MEDS: SENNOSIDES/DOCUSATE SODIUM TAB PO SCH (20:07)
[2016-12-29] MEDS: PATCH REMOVAL 1 EA PATCH TD SCH (20:09)
[2016-12-30] MEDS: IBUPROFEN 600 MG TAB PO SCH ×4 (00:18→21:00)
[2016-12-30] MEDS: LIDOCAINE 5% 1 EA PATCH TD SCH (08:09)
[2016-12-30] MEDS: MIDODRINE HCL 5 MG TAB PO SCH ×4 (08:11→20:08)
[2016-12-30] MEDS: SENNOSIDES/DOCUSATE SODIUM TAB PO SCH ×2 (08:11→20:49)
[2016-12-30] MEDS: MULTIVITAMINS 1 EACH TAB PO SCH (08:11)
[2016-12-30] MEDS: ENTACAPONE 200 MG TAB PO SCH ×4 (08:11→20:08)
[2016-12-30] MEDS: VENLAFAXINE XR 75 MG CAP PO SCH (08:11)
[2016-12-30] MEDS: CARBIDOPA/LEVO CR 50 MG/200 MG TAB PO SCH ×4 (08:11→20:08)
[2016-12-30] MEDS: POLYETHYLENE GLYCOL 3350 17 GM PKT PO SCH (08:15)
[2016-12-30] MEDS: HYDROCORTISONE 0.5% CREAM TP SCH ×2 (09:51→20:52)
--- NOTE | 2016-12-30 12:54 | HOSPPROG ---
Hospitalist Progress Note Assessment/Plan: Rema Brennan is a 71 y/o male with advanced Parkinson who presented to the ER as a follow up from falling. He had a mechanical fall, landing on his right side. He was c/o shortness of breath. # Tension Pneumothorax with associated rib fx CT removed/ doing well chest xray stable managed per trauma #Rib fractures will need encouragement to C,T,D,B #Pain cont supportive care added Tramadol and increased his home Baclofen #Hypotension/resolved # Wrist pain cont brace # Parkinson's home meds end stage and pt has significant b/l confusion # Recurrent falls PT/OT #DVT prophylaxis: initiated LMWH/ patient not very mobile # Dispo: Rema is willing to go to SNF/can be dc to [facility] tomorrow Subjective: Rema has pain with breathing at rib area. Objective: Vital Signs Temp Pulse Resp BP Pulse Ox 36.2 C 62 18 103/68 97 12/30/16 12:00 12/30/16 12:00 12/30/16 12:00 12/30/16 12:00 12/30/16 12:00 Laboratory Results 12/28/16 17:29 12/27/16 04:48 12/29/16 12/30/16 12/31/16 05:59 05:59 05:59 Intake Total 100 450 Output Total 995 450 Balance -895 0 PT 14.2 SEC (12.0-15.0) 12/26/16 14:16 INR 1.11 (0.83-1.16) 12/26/16 14:16 - Physical Exam Constitutional: chronically ill appearing, uncomfortable, No not in pain Eyes: PERRL Ears, Nose, Mouth, Throat: hearing normal Cardiovascular: regular rate and rhythym Respiratory: no respiratory distress, reduced air movement (right mid lobe down, poor inspiratory effort) Gastrointestinal: normoactive bowel sounds Skin: warm, normal color Musculoskeletal: generalized weakness, other (right wrist in splint) Neurologic: AAOx3 Psychiatric: interacting appropriately ICD10 Worksheet Patient Problems: Problems Problem Status Onset History of Parkinson's disease Acute Multiple rib fractures Acute Pneumothorax, right Acute Radial styloid fracture Acute Acute encephalopathy Acute Acute right hip pain Acute Anemia Acute Closed right hip fracture Acute Hypoxia Acute Parkinson disease Acute
[2016-12-30] MEDS: ENOXAPARIN 40 MG/0.4 ML SYR SC SCH (14:17)
--- NOTE | 2016-12-30 17:58 | TRAUMAPN ---
Assessment/Plan: 71 year old man with medical issues who fell and sustained right rib fractures 3 -8 Chest tube removed yesterday with very small apical pneumothorax Continue pulmonary toilet 1:1 supervision when eating Appreciate hospitalists S:sleeping, somulent Objective: Vital Signs Temp Pulse Resp BP Pulse Ox 35.9 C L 70 16 81/54 L 95 12/30/16 15:59 12/30/16 15:59 12/30/16 15:59 12/30/16 15:59 12/30/16 15:59 Laboratory Results 12/28/16 17:29 12/27/16 04:48 12/29/16 12/30/16 12/31/16 05:59 05:59 05:59 Intake Total 100 450 Output Total 995 450 400 Balance -895 0 -400 PT 14.2 SEC (12.0-15.0) 12/26/16 14:16 INR 1.11 (0.83-1.16) 12/26/16 14:16 Physical Exam - Physical Exam EENT: normal ENT inspection Respiratory: decreased breath sounds, No accessory muscle use Cardiac/Chest: regular rate, rhythm Abdomen: normal bowel sounds, non-tender, soft
[2016-12-30] MEDS: clonazePAM 0.5 MG TAB PO SCH (20:48)
[2016-12-30] MEDS: QUEtiapine FUMARATE 25 MG TAB PO SCH (20:49)
[2016-12-30] MEDS: GABAPENTIN 100 MG CAP PO SCH (20:49)
[2016-12-30] MEDS: PATCH REMOVAL 1 EA PATCH TD SCH (20:49)
[2016-12-30] MEDS: traZODone 50 MG TAB PO SCH (20:58)
[2016-12-31] MEDS: IBUPROFEN 600 MG TAB PO SCH ×2 (05:41→13:15)
[2016-12-31] MEDS: POLYETHYLENE GLYCOL 3350 17 GM PKT PO SCH (08:12)
[2016-12-31] MEDS: CARBIDOPA/LEVO CR 50 MG/200 MG TAB PO SCH ×3 (08:13→16:39)
[2016-12-31] MEDS: ENOXAPARIN 40 MG/0.4 ML SYR SC SCH (08:13)
[2016-12-31] MEDS: MIDODRINE HCL 5 MG TAB PO SCH ×3 (08:14→16:39)
[2016-12-31] MEDS: SENNOSIDES/DOCUSATE SODIUM TAB PO SCH (08:14)
[2016-12-31] MEDS: VENLAFAXINE XR 75 MG CAP PO SCH (08:14)
[2016-12-31] MEDS: MULTIVITAMINS 1 EACH TAB PO SCH (08:14)
[2016-12-31] MEDS: LIDOCAINE 5% 1 EA PATCH TD SCH (08:14)
[2016-12-31] MEDS: ENTACAPONE 200 MG TAB PO SCH ×3 (08:14→16:39)
[2016-12-31] MEDS: HYDROCORTISONE 0.5% CREAM TP SCH (08:15)
--- NOTE | 2016-12-31 08:18 | SOAPPROG ---
SOAP Progress Note Assessment/Plan: Assessment: Plan: Subjective: vss,af lungs clear heart no m rrr abd soft, eating. transfer to [facility] today . Objective: Vital Signs Temp Pulse Resp BP Pulse Ox 36.3 C 60 12 111/65 98 12/31/16 08:00 12/31/16 08:00 12/31/16 08:00 12/31/16 08:00 12/31/16 08:00 Laboratory Results 12/28/16 17:29 12/27/16 04:48 12/30/16 12/31/16 01/01/17 05:59 05:59 05:59 Intake Total 450 1750 Output Total 450 425 Balance 0 1325 PT 14.2 SEC (12.0-15.0) 12/26/16 14:16 INR 1.11 (0.83-1.16) 12/26/16 14:16 ICD10 Worksheet Patient Problems: Problems Problem Status Onset History of Parkinson's disease Acute Multiple rib fractures Acute Pneumothorax, right Acute Radial styloid fracture Acute Acute encephalopathy Acute Acute right hip pain Acute Anemia Acute Closed right hip fracture Acute Hypoxia Acute Parkinson disease Acute
--- NOTE | 2016-12-31 08:19 | PDIAF ---
- Diagnosis Code Status: Full Code - Medication Management Discharge Medications: Medications to Continue on Transfer Baclofen [Baclofen 10 mg (*)] 10 - 20 mg PO HS 12/16/14 [Last Taken 12/25/16] Carbidopa/Levo Cr 50/200Mg [SINEMET CR 50/200 MG (*)] 1 tab PO 08,12,16,20 12/16 [Last Taken 12/26/16 12:00] Entacapone [Comtan] 200 mg PO 08,12,16,20 12/16/14 [Last Taken 12/26/16 12:00] Multivitamins [Multivitamin (*)] 1 each PO DAILY 12/16/14 [Last Taken 12/26/16] clonazePAM [Klonopin (*)] 0.5 mg PO HS 12/16/14 [Last Taken 12/25/16] Acetaminophen [Tylenol Extra Strength] 500 mg PO Q6H PRN #20 tablet 12/28/14 [ Last Taken Unknown] Droxidopa [Northera] 200 mg PO ,,,06/25/15 [Last Taken 12/26/16 12:00] Hydrocortisone 0.5% [Hydrocortisone 0.5% cream (*)] 1 jd TP BID #0 cream [Last Taken 12/26/16] Polyethylene Glycol 3350 [Miralax 17 gm (*)] 17 gm PO DAILY PRN #0 pkt 07/04/15 [Last Taken Unknown] QUEtiapine FUMARATE [Seroquel 25 mg (*)] 25 mg PO HS 12/26/16 [Last Taken ] Gabapentin [Neurontin 100 MG (*)] 300 mg PO HS 12/27/16 [Last Taken 12/25/16] Pantoprazole Sodium [Protonix 40mg (*)] 40 mg PO DAILY PRN 12/27/16 [Last Taken Unknown] Sennosides/Docusate Sodium [Senokot-S] 1 - 2 tab PO BID PRN 12/27/16 [Last Taken Unknown] Venlafaxine HCl [Venlafaxine HCl ER] 75 mg PO DAILY@08 12/27/16 [Last Taken ] traZODone [traZODONE 50MG (*)] 75 mg PO HS 12/27/16 [Last Taken 12/25/16] Midodrine HCl [Proamatine 5 mg (RX)] 5 mg PO 08,12,16,20 12/29/16 [Last Taken Unknown] Discharge Medications: Refer to the Discharge Home Medication list for PRN reason. - Orders Diet Texture: Dysphagia 3 - Advanced - Moist, Bite-Size, Thin Liquids, Meds Whole w/Liquids, Meds Whole in Puree - Follow Up Care Current Providers and Referrals: Varsha Rea MD [Primary Care Provider] - As per Instructions
--- NOTE | 2016-12-31 08:47 | GDS ---
[f rep st] DISCHARGE SUMMARY PRESENT ILLNESS: A 71-year-old male who fell 2 days prior to admission, presented to the emergency department on 12/2013, was found to have a large right pneumothorax, including rib fractures, 3 thro ugh 8 on the right and possible tension pneumothorax. PAST MEDICAL HISTORY: Relevant for severe Parkinson disease. HOSPITAL COURSE: The patient underwent right chest tube placement which has subsequently been remov ed. Last chest x-ray shows minimal decreasing apical pneumothorax. On the day of discharge, lungs sounds are clear. The patient is tolerating a diet, requiring 2 persons to assist in ambulation, cl early not appropriate for home discharge. He is going to [facility]. FINAL DIAGNOSIS: Mechanical fall 2 days prior to admission with multiple right rib fractures, right tension pneumothorax. OPERATIONS: Right chest tube placement. DISPOSITION: Transfer to [facility]. Followup is with Dr. Varsha Rea. /[id number]/MODL
[2016-12-31] MEDS: HYDROCODONE/APAP 5/325 TAB PO PRN ×2 (11:06→13:14)
--- NOTE | 2016-12-31 13:15 | HOSPPROG ---
Hospitalist Progress Note Assessment/Plan: Rema Brennan is a 71 y/o male with advanced Parkinson who presented to the ER as a follow up from falling. He had a mechanical fall, landing on his right side. He was c/o shortness of breath. # Tension Pneumothorax with associated rib fx CT removed/ doing well chest xray stable managed per trauma #Rib fractures will need encouragement to C,T,D,B having significant pain today/ RN to medicate prior to dc #Pain cont supportive care added Tramadol and increased his home Baclofen #Hypotension/resolved # Wrist pain cont brace # Parkinson's home meds end stage and pt has significant b/l confusion # Recurrent falls PT/OT #DVT prophylaxis: initiated LMWH/ patient not very mobile # Dispo: [facility] today Subjective: Rema is c/o significant right sided rib pain. Objective: Vital Signs Temp Pulse Resp BP Pulse Ox 36.3 C 60 12 111/65 98 12/31/16 08:00 12/31/16 08:00 12/31/16 08:00 12/31/16 08:00 12/31/16 08:00 Laboratory Results 12/28/16 17:29 12/27/16 04:48 12/30/16 12/31/16 01/01/17 05:59 05:59 05:59 Intake Total 450 1750 Output Total 450 425 200 Balance 0 1325 -200 PT 14.2 SEC (12.0-15.0) 12/26/16 14:16 INR 1.11 (0.83-1.16) 12/26/16 14:16 - Physical Exam Constitutional: uncomfortable, No not in pain Eyes: PERRL Ears, Nose, Mouth, Throat: hearing normal Cardiovascular: regular rate and rhythym Respiratory: no respiratory distress, reduced air movement (right lung) Gastrointestinal: normoactive bowel sounds Skin: warm Musculoskeletal: generalized weakness Neurologic: AAOx3 Psychiatric: interacting appropriately ICD10 Worksheet Patient Problems: Problems Problem Status Onset History of Parkinson's disease Acute Multiple rib fractures Acute Pneumothorax, right Acute Radial styloid fracture Acute Acute encephalopathy Acute Acute right hip pain Acute Anemia Acute Closed right hip fracture Acute Hypoxia Acute Parkinson disease Acute
[2016-12-31 15:44] VITALS: BP 91/57; PULSE 66; RESP 14; TEMP 97.9; O2SAT 96
== END 2016-12-31 17:01 | DRG 950 ==
LOC: F3N 16:46
PROVIDERS: ADMIT Surgery; ATTEND Surgery
DX: S27.0XXD Traumatic pneumothorax, subsequent encounter (principal); S22.41XD Multiple fractures of ribs, right side, subsequent encounter for fracture with routine healing; S52.511D Displaced fracture of right radial styloid process, subsequent encounter for closed fracture with routine healing; W19.XXXD Unspecified fall, subsequent encounter; G20 Parkinson's disease; Z96.641 Presence of right artificial hip joint; Z96.642 Presence of left artificial hip joint
CPT/HCPCS: 82947-QW; 92507-GN; 92523-GN; 92526-GN; 92610-GN; 96374; 97116-GP; 97162-GP; 97165-GO; 97530-GO; 97530-GP; 97535-GO; G8978-GP-CM; G8979-GP-CK; G8987-GO-CK; G8988-GO-CJ; G8996-GN-CJ; G8997-GN-CI; G9168-GN-CL; G9169-GN-CL; G9170-GN-CL; J1650; J1885; J2060; J3010; L3807; Q9967

== ENCOUNTER → 2017-02-17 | Outpatient (CLI) | payer OTHER | LOC: BMCIMAGING 10:51 | PROVIDERS: ATTEND Family Medicine | DX: S52.91XA Unspecified fracture of right forearm, initial encounter for closed fracture (principal); S52.601A Unspecified fracture of lower end of right ulna, initial encounter for closed fracture; S62.111A Displaced fracture of triquetrum [cuneiform] bone, right wrist, initial encounter for closed fracture; M19.011 Primary osteoarthritis, right shoulder; M19.041 Primary osteoarthritis, right hand ==

== ENCOUNTER 2017-03-18 13:08 | Inpatient (IN) | payer OTHER ==
--- NOTE | 2017-03-18 13:47 | EDPHY ---
H & P Stated Complaint: fall onto buttocks last night hurts to walk has parkinsons Time Seen by Provider: 03/18/17 13:46 - Personal History Current Tetanus/Diphtheria Vaccine: Yes Current Tetanus Diphtheria and Acellular Pertussis (TDAP): Yes Tetanus Vaccine Date: <10 years - Medical/Surgical History Hx Asthma: No Hx Chronic Respiratory Disease: No Hx Diabetes: No Hx Cardiac Disease: No Hx Renal Disease: No Hx Cirrhosis: No Hx Alcoholism: No Hx HIV/AIDS: No Hx Splenectomy or Spleen Trauma: No Other PMH: Parkinsons, depression, insomnia, bilateral knee sx, L hip replacement, R hip sx - Social History Smoking Status: Never smoked Constitutional: Initial Vital Signs Temperature (C) 36.3 C 03/18/17 13:11 Heart Rate 81 03/18/17 13:11 Respiratory Rate 16 03/18/17 13:11 Blood Pressure 107/66 03/18/17 13:11 O2 Sat (%) 93 03/18/17 13:11 O2 Delivery Mode Room Air Allergies/Adverse Reactions: No Known Allergies Allergy (Verified 12/26/16 13:59) Home Medications: Medication Instructions Recorded Baclofen [Baclofen 10 mg (*)] 10 - 20 mg PO HS 12/16/14 Carbidopa/Levo Cr 50/200Mg 1 tab PO 08,,,20 12/16/14 [SINEMET CR 50/200 MG (*)] Entacapone [Comtan] 200 mg PO 08,12,16,20 12/16/14 Multivitamins [Multivitamin (*)] 1 each PO DAILY 12/16/14 Acetaminophen [Tylenol Extra 500 mg PO Q6H PRN #20 tablet 12/28/14 Strength] Polyethylene Glycol 3350 [Miralax 17 gm PO DAILY PRN #0 pkt 07/04/15 17 gm (*)] QUEtiapine FUMARATE [Seroquel 25 25 mg PO HS 12/26/16 mg (*)] Gabapentin [Neurontin 100 MG (*)] 300 mg PO HS 12/27/16 Pantoprazole Sodium [Protonix 40mg 40 mg PO DAILY PRN 12/27/16 (*)] Venlafaxine HCl [Venlafaxine HCl 75 mg PO DAILY@08 12/27/16 ER] traZODone [traZODONE 50MG (*)] 75 mg PO HS 12/27/16 Midodrine HCl [Proamatine 5 mg 5 mg PO 08,12,16,20 12/29/16 (RX)] NAPROXEN [NAPROXEN] 500 mg PO BID PRN 03/18/17 Zolpidem Tartrate [Zolpidem 5 mg PO HS PRN 03/18/17 Tartrate] Medical Decision Making - Diagnostics Imaging Results: Imaging Impressions Hip X-Ray 03/18/17 13:41 Impression: Suspect essentially undisplaced fracture of the left inferior pubic ramus/ischial tuberosity. Wrist X-Ray 03/18/17 15:22 Impression: Nothing obviously acute identified. If clinical suspicion for acute injury is high, then consider repeat x-ray after cast removal. Imaging: I viewed and interpreted images myself ED Course/Re-evaluation: CHIEF COMPLAINT: Fall, difficulty walking HISTORY OF PRESENT ILLNESS: This patient is a 71 year old male with history of Parkinson's disease arriving with his complaining of pain and inability to ambulate following a mechanical fall yesterday evening. His at bedside states he fell due to a balance issue due to his advanced Parkinson's. EMS crews arrived last night, and were able to help the patient walk. Today, he states he is unable to walk, and having pain in his left hip. HPI obtained primarily from at bedside. REVIEW OF SYSTEMS: A 10 point review of systems was performed and is negative with the exception of the elements mentioned in the history of present illness. PHYSICAL EXAM: HR, BP, O2 Sat, RR. Temp noted General Appearance: Alert, well hydrated, and non-toxic appearing. Head: Atraumatic without scalp tenderness or obvious injury Neck: Supple. Respiratory: No retractions, no distress, no wheezes, and no accessory muscle use. Lungs are clear to auscultation bilaterally. Cardiovascular: Regular rate and rhythm, no murmurs, rubs, or gallops. Good capillary refill all extremities. Gastrointestinal: Abdomen is soft, non-distended. Musculoskeletal: Tenderness to left pelvic area. Right wrist is in a cast. Neurological: Parkinsonian movements. Skin: No rashes, good turgor, no nodules on palpation. Past medical history: Parkinson's disease, multiple falls, depression Past surgical history: Hip replacement Family history: Noncontributory Social history: at bedside. DIFFERENTIAL DIAGNOSIS: The differential diagnosis for the patient's trauma included but was not limited to intracranial injury, long bone and pelvic bone fractures, spinal injury, intra-abdominal injury, and intra-thoracic injury. MEDICAL DECISION MAKING: This patient is a 71 year old male presenting with left hip pain and inability to ambulate following a mechanical fall due to Parkinsons imbalances. Plan for x-ray of hip to rule out osseous abnormalities or other trauma. 14:49 X-ray shows essentially undisplaced left inferior pubic ramus fracture. Plan to admit for continued management of fracture and advanced Parkinson's disease. Dr. Chaidez accepts admission. - Data Points Medications Given: Discontinued Medications Carbidopa/Levodopa (Sinemet Cr 50/200) 1 tab PO BID ONE Stop: 03/18/17 14:57 Last Admin: 03/18/17 15:22 Dose: 1 tab Entacapone (Comtan) 200 mg PO EDNOW ONE Stop: 03/18/17 14:58 Last Admin: 03/18/17 15:22 Dose: 200 mg Midodrine (Proamatine/Midodrin) 5 mg PO TID@0800,1200,1600 ONE Stop: 03/18/17 14:57 Last Admin: 03/18/17 15:22 Dose: 5 mg Departure - Departure Disposition: [facility] Inpatient Acute Clinical Impression: Parkinson disease Fracture of pubic ramus Qualifiers: Encounter type: initial encounter Fracture type: closed Laterality: left Qualified Code(s): S32.592A - Other specified fracture of left pubis, initial encounter for closed fracture Condition: Fair Referrals: Varsha Rea MD [Primary Care Provider] - As per Instructions Walt Hook MD [Medical Doctor] - As per Instructions Report Scribed for: Luis Petty Report Scribed by: Frieda Patel Date of Report: 03/18/17 Time of Report: 14:15
--- NOTE | 2017-03-18 13:58 | EDPHY ---
H & P Stated Complaint: fall onto buttocks last night hurts to walk has parkinsons Time Seen by Provider: 03/18/17 13:46 - Personal History Current Tetanus/Diphtheria Vaccine: Yes Current Tetanus Diphtheria and Acellular Pertussis (TDAP): Yes Tetanus Vaccine Date: <10 years - Medical/Surgical History Hx Asthma: No Hx Chronic Respiratory Disease: No Hx Diabetes: No Hx Cardiac Disease: No Hx Renal Disease: No Hx Cirrhosis: No Hx Alcoholism: No Hx HIV/AIDS: No Hx Splenectomy or Spleen Trauma: No Other PMH: Parkinsons, depression, insomnia, bilateral knee sx, L hip replacement, R hip sx - Social History Smoking Status: Never smoked Constitutional: Initial Vital Signs Temperature (C) 36.3 C 03/18/17 13:11 Heart Rate 81 03/18/17 13:11 Respiratory Rate 16 03/18/17 13:11 Blood Pressure 107/66 03/18/17 13:11 O2 Sat (%) 93 03/18/17 13:11 O2 Delivery Mode Room Air Allergies/Adverse Reactions: No Known Allergies Allergy (Verified 12/26/16 13:59) Home Medications: Medication Instructions Recorded Baclofen [Baclofen 10 mg (*)] 10 - 20 mg PO HS 12/16/14 Carbidopa/Levo Cr 50/200Mg 1 tab PO 08,12,16,20 12/16/14 [SINEMET CR 50/200 MG (*)] Entacapone [Comtan] 200 mg PO 08,12,16,20 12/16/14 Multivitamins [Multivitamin (*)] 1 each PO DAILY 12/16/14 clonazePAM [Klonopin (*)] 0.5 mg PO HS 12/16/14 Acetaminophen [Tylenol Extra 500 mg PO Q6H PRN #20 tablet 12/28/14 Strength] Droxidopa [Northera] 200 mg PO 08,12,16,20 06/25/15 Hydrocortisone 0.5% 1 dj TP BID #0 cream 07/04/15 [Hydrocortisone 0.5% cream (*)] Polyethylene Glycol 3350 [Miralax 17 gm PO DAILY PRN #0 pkt 07/04/15 17 gm (*)] QUEtiapine FUMARATE [Seroquel 25 25 mg PO HS 12/26/16 mg (*)] Gabapentin [Neurontin 100 MG (*)] 300 mg PO HS 12/27/16 Pantoprazole Sodium [Protonix 40mg 40 mg PO DAILY PRN 12/27/16 (*)] Sennosides/Docusate Sodium 1 - 2 tab PO BID PRN 12/27/16 [Senokot-S] Venlafaxine HCl [Venlafaxine HCl 75 mg PO DAILY@08 12/27/16 ER] traZODone [traZODONE 50MG (*)] 75 mg PO HS 12/27/16 Midodrine HCl [Proamatine 5 mg 5 mg PO 08,12,16,20 12/29/16 (RX)] Medical Decision Making ED Course/Re-evaluation: at bedside reports he fell last night. Balance issue due to Parkinson's. Hurt left hip. Last night called ambulance, walked to bed. Today, states he is unable to walk. Left hip replacement. CHIEF COMPLAINT: Fall, difficulty walking HISTORY OF PRESENT ILLNESS: must have 4 elements: Location, Quality, Severity, Duration, Timing, Context, Modifying Factors, Associated Signs and Symptoms This patient is a 71 year old male with history of Parkinson's disease arriving with his complaining of pain and inability to ambulate following a fall yesterday evening. His at bedside states he fell due to a balance issue due to his advanced Parkinson's. EMS crews arrived last night, and were able to help the patient walk. Today, he states he is unable to walk, and having pain in his hip. HPI obtained primarily from at bedside. REVIEW OF SYSTEMS: A 10 point review of systems was performed and is negative with the exception of the elements mentioned in the history of present illness. PHYSICAL EXAM: General Appearance: Alert, well hydrated, and non-toxic appearing. Head: Atraumatic without scalp tenderness or obvious injury Neck: Supple. Respiratory: No retractions, no distress, no wheezes, and no accessory muscle use. Lungs are clear to auscultation bilaterally. Cardiovascular: Regular rate and rhythm, no murmurs, rubs, or gallops. Good capillary refill all extremities. Gastrointestinal: Abdomen is soft, non-distended. Musculoskeletal: Normal active ROM of all extremities, atraumatic. Neurological: Chronic Parkinsonian movements. Skin: No rashes, good turgor, no nodules on palpation. PAST MEDICAL HISTORY: Parkinson's disease, Parkinson's dementia PAST SURGICAL HISTORY: Hip replacement SOCIAL HISTORY: at bedside. DIAGNOSTICS/PROCEDURES/CRITICAL CARE TIME: DIFFERENTIAL DIAGNOSIS: MEDICAL DECISION MAKING: Plan for x-ray of [] to rule out osseous abnormalities or other trauma. Departure - Departure Referrals: Varsha Rea MD [Primary Care Provider] - As per Instructions Report Scribed for: Luis Petty Report Scribed by: Frieda Patel Date of Report: 03/18/17 Time of Report: 13:58
[2017-03-18] MEDS ORDERED: MIDODRINE HCL 5 MG TAB PO ONE (14:56)
[2017-03-18] MEDS ORDERED: CARBIDOPA/LEVO CR 50 MG/200 MG TAB PO ONE (14:56)
[2017-03-18] MEDS ORDERED: ENTACAPONE 200 MG TAB PO ONE (14:57)
[2017-03-18] MEDS ORDERED: ONDANSETRON 4 MG/2 ML VIAL IVP PRN (15:26)
[2017-03-18] MEDS ORDERED: ONDANSETRON DISINTEGRATING 4 MG TAB PO PRN (15:26)
[2017-03-18] MEDS ORDERED: ZOLPIDEM TARTRATE 5 MG TAB PO PRN (15:40)
[2017-03-18] MEDS ORDERED: POLYETHYLENE GLYCOL 3350 17 GM PKT PO PRN (15:40)
[2017-03-18] MEDS ORDERED: GABAPENTIN 100 MG CAP PO PRN (15:40)
[2017-03-18] MEDS ORDERED: PANTOPRAZOLE SODIUM 40 MG TAB PO PRN (15:40)
[2017-03-18] MEDS ORDERED: NS 1,000 ML IV SCH (15:45)
[2017-03-18] MEDS ORDERED: ENTACAPONE 200 MG TAB PO SCH (16:00)
[2017-03-18] MEDS ORDERED: CARBIDOPA/LEVO CR 50 MG/200 MG TAB PO SCH (16:00)
[2017-03-18] MEDS ORDERED: MIDODRINE HCL 5 MG TAB PO SCH (16:00)
--- NOTE | 2017-03-18 16:01 | GHP ---
[f rep st] HISTORY AND PHYSICAL DATE OF ADMISSION: 03/18/2017 HISTORY OF PRESENT ILLNESS: The patient is a 71-year-old gentleman with Parkinson disease, who had a fall last evening onto his bottom. It is not clear that he hit his head. He does not have a head ache now. He had difficulty and pain with walking and really struggled to walk, so he sought care, where he was found to have a left pubic ramus fracture. The patient denies antecedent chest pain, p alpitations, loss of consciousness. He has had numerous admissions here to the hospital for falls, pretty well with a pneumothorax. He had another fall that did not result in hospitalization, that r esulted in a right wrist fracture. REVIEW OF SYSTEMS: Complete 10-point review of systems conducted. Negative except as noted in the HPI. PAST MEDICAL HISTORY: 1. Hip fracture in June 2015. 2. Fall with pneumothorax in December 2016. 3. Right wrist fracture. 4. Parkinson's. 5. Depression. 6. Gastroesophageal reflux disease. 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 He is a nonsmoker. Oc casional alcohol. Lives with his . FAMILY HISTORY: Parents . ALLERGIES: There are no known drug allergies, although his comments that he does poorly with n arcotics. MEDICATIONS: Tylenol, baclofen, carbidopa-levodopa, clonazepam, Droxidopa, entacapone, gabapentin, hydrocortisone cream, Midodrine, multivitamin, pantoprazole, MiraLAX, quetiapine, senna, trazodone, venlafaxine. PHYSICAL EXAM: VITAL SIGNS: Temp 36.3, blood pressure 107/66, pulse 81, breathing 16 times a minut e, 93% on room air. GENERAL: In no acute distress. HEENT: Sclerae anicteric. Oropharynx clear. Mucous membranes are dry. NECK: Supple without lymphadenopathy or JVD. LUNGS: Clear to ausculta tion bilaterally. HEART: S1, S2. ABDOMEN: Soft, nontender, nondistended. LOWER EXTREMITIES: Wi thout edema. His right wrist is in a cast. He is neurovascularly intact. NEUROLOGIC: A hushed vo ice, slow movement, but he is alert and nonfocal. There is no pill-rolling tremor. LABS: White count 4.8, hematocrit 39, platelets are 230,000, all near baseline. Sodium 141, potass ium 4.3, chloride 108, bicarb 26, BUN 21, creatinine 0.9, glucose 92. DIAGNOSTIC DATA: Hip film shows suspected left pubic ramus fracture, as well as constipation. I discussed the case with Dr. Luis Petty. ASSESSMENT AND PLAN: This is a 71-year-old gentleman with significant, probably near end-stage Park inson's, and a mechanical fall. 1. Mechanical fall. This is secondary to Parkinson's. We will have Physical Therapy and Occupatio nal Therapy see him. 2. Pubic ramus fracture. These are weight-bearing as tolerated. Again, will have Physical Therapy and Occupational Therapy see him. 3. Pain. Will use ibuprofen and scheduled Tylenol. He does poorly with narcotics. When his medic ations are reconciled, we can add his muscle relaxants, as well. 4. Parkinson's. Will continue his medications as faithfully as possible. 5. Disposition: Inpatient status. I suspect the patient needs at least short-term placement, may be long-term, although his notes he is quite invested in his house and does not want to leave. 6. Prophylaxis. Pharmacologic prophylaxis indicated with low-molecular weight heparin. /[id number]/MODL
[2017-03-18] MEDS ORDERED: NON-FORMULARY NEW DRUG (Naproxen [Naproxen] 500 MG) PO PRN (16:29)
[2017-03-18] MEDS: ACETAMINOPHEN 500 MG TAB PO SCH ×2 (17:05→21:59)
[2017-03-18] MEDS ORDERED: IBUPROFEN 200 MG TAB PO SCH (18:00)
[2017-03-18] MEDS ORDERED: Naproxen [Naproxen] 500 MG PO PRN (19:44)
[2017-03-18] MEDS: CARBIDOPA/LEVO CR 50 MG/200 MG TAB PO SCH (21:25)
[2017-03-18] MEDS: BACLOFEN 10 MG TAB PO SCH (21:25)
[2017-03-18] MEDS: ENTACAPONE 200 MG TAB PO SCH (21:26)
[2017-03-18] MEDS: traZODone 50 MG TAB PO SCH (21:27)
[2017-03-18] MEDS: QUEtiapine FUMARATE 25 MG TAB PO SCH (21:27)
[2017-03-18] MEDS: MIDODRINE HCL 5 MG TAB PO SCH (21:28)
[2017-03-19 05:23] LABS: % IMMATURE GRANULYOCYTES 0.3 % (0.0-1.1); ABSOLUTE IMMATURE GRANULOCYTES 0.02 10^3/uL (0.00-0.10); ADD DIFF? NO; ADD MORPH? NO; ADD SCAN? NO; ATYPICAL LYMPHOCYTE FLAG 0 (0-99); FRAGMENT RBC FLAG 0 (0-99); HEMATOCRIT 38.5 % (40.0-51.0); HEMOGLOBIN 12.4 g/dL (13.7-17.5); LEFT SHIFT FLG 0 (0-99); LIPEMIA HEMOLYSIS FLAG 80 (0-99); MEAN CELL HEMOGLOBIN 29.5 pg (27.9-34.1); MEAN CELL HEMOGLOBIN CONCENTR. 32.2 g/dL (32.4-36.7); MEAN CELL VOLUME 91.4 fL (81.5-99.8); MEAN PLATELET VOLUME 8.9 fL (8.7-11.7); PLATELET CLUMPS FLAG 0 (0-99); PLATELET COUNT 208 10^3/uL (150-400); RED BLOOD CELL COUNT 4.21 10^6/uL (4.40-6.38); RED CELL DISTRIBUTION WIDTH 12.7 % (11.5-15.2)
[2017-03-19 05:36] LABS: ANION GAP 13 mEq/L (8-16); CALCIUM 9.6 mg/dL (8.5-10.4); CARBON DIOXIDE 22 mEq/l (22-31); CHLORIDE 108 mEq/L (97-110); CREATININE 1.2 mg/dL (0.7-1.3); GLOMERULAR FILTRATION RATE 59; GLUCOSE 81 mg/dL (70-100); POTASSIUM 4.2 mEq/L (3.5-5.2); SODIUM 143 mEq/L (134-144)
[2017-03-19] MEDS: ACETAMINOPHEN 500 MG TAB PO SCH ×3 (06:13→21:13)
[2017-03-19] MEDS: VENLAFAXINE XR 75 MG CAP PO SCH (08:26)
[2017-03-19] MEDS: MIDODRINE HCL 5 MG TAB PO SCH ×4 (08:26→21:16)
[2017-03-19] MEDS: ENTACAPONE 200 MG TAB PO SCH ×4 (08:27→21:14)
[2017-03-19] MEDS: ENOXAPARIN 40 MG/0.4 ML SYR SC SCH (08:27)
[2017-03-19] MEDS: MULTIVITAMINS 1 EACH TAB PO SCH (08:27)
[2017-03-19] MEDS: CARBIDOPA/LEVO CR 50 MG/200 MG TAB PO SCH ×4 (08:27→21:15)
--- NOTE | 2017-03-19 09:11 | HOSPPROG ---
Hospitalist Progress Note Assessment/Plan: Mr. Brennan is a 71-year-old gentleman with Parkinson's disease. He had a fall prior to his admission. Today is my 1st encounter with the patient. Chart reviewed. * Mechanical fall will ask Physical therapy and Occupational therapy to see him * advanced Parkinson's likely the etiology of why he is falling home medications resumed very advanced * hypotension asymptomatic *underweight with a BMI of 18 *Left pubic ramus fx wbat patient says he has no pain *right wrist fx from a fall *Plan: PT & OT recommending SNF/ he wants to go home badly/ explained to him I' m concerned about his frequent falls Subjective: Rema is not c/o pain. Wants to go home. Objective: Vital Signs Temp Pulse Resp BP Pulse Ox 36.6 C 66 16 94/60 L 96 03/19/17 04:29 03/19/17 04:29 03/19/17 04:29 03/19/17 04:29 03/19/17 04:29 Laboratory Results 03/19/17 05:02 03/19/17 05:02 03/18/17 03/19/17 03/20/17 05:59 05:59 05:59 Output Total 100 Balance -100 - Physical Exam Constitutional: no apparent distress, other (thin) Eyes: PERRL Ears, Nose, Mouth, Throat: hearing normal Cardiovascular: regular rate and rhythym Respiratory: no respiratory distress Gastrointestinal: normoactive bowel sounds Skin: warm Musculoskeletal: generalized weakness, other (increase tremors with purposeful movement) Neurologic: other (alert) Psychiatric: poor insight, other (impulsive) ICD10 Worksheet Patient Problems: Problems Problem Status Onset Fracture of pubic ramus Acute Parkinson disease Acute Acute encephalopathy Acute Acute right hip pain Acute Anemia Acute Closed right hip fracture Acute History of Parkinson's disease Acute Hypoxia Acute Multiple rib fractures Acute Pneumothorax, right Acute Radial styloid fracture Acute
[2017-03-19] MEDS: BACLOFEN 10 MG TAB PO SCH (21:12)
[2017-03-19] MEDS: QUEtiapine FUMARATE 25 MG TAB PO SCH (21:14)
[2017-03-19] MEDS: traZODone 50 MG TAB PO SCH (21:15)
[2017-03-20] MEDS: ACETAMINOPHEN 500 MG TAB PO SCH ×3 (05:59→22:05)
[2017-03-20] MEDS: MULTIVITAMINS 1 EACH TAB PO SCH (08:04)
[2017-03-20] MEDS: CARBIDOPA/LEVO CR 50 MG/200 MG TAB PO SCH ×4 (08:04→19:52)
[2017-03-20] MEDS: VENLAFAXINE XR 75 MG CAP PO SCH (08:04)
[2017-03-20] MEDS: ENTACAPONE 200 MG TAB PO SCH ×4 (08:04→19:52)
[2017-03-20] MEDS: MIDODRINE HCL 5 MG TAB PO SCH ×4 (08:04→19:52)
[2017-03-20] MEDS: ENOXAPARIN 40 MG/0.4 ML SYR SC SCH (08:05)
--- NOTE | 2017-03-20 09:54 | HOSPPROG ---
Hospitalist Progress Note Assessment/Plan: Mr. Brennan is a 71-year-old gentleman with Parkinson's disease. He had a fall prior to his admission. * Mechanical fall will ask Physical therapy and Occupational therapy to see him * advanced Parkinson's likely the etiology of why he is falling home medications resumed very advanced * hypotension bp stable this morning *underweight with a BMI of 18 eating well this morning *Left pubic ramus fx wbat trial of prn ibuprofen will avoid narcotics/ he gets very confused w them *right wrist fx from a fall *Plan:will need a SNF. Subjective: Rema said he was having a good morning, but now isn't because of pain (but couldn't tell me where) Objective: Vital Signs Temp Pulse Resp BP Pulse Ox 36.6 C 57 L 15 122/78 H 100 03/20/17 07:58 03/20/17 07:58 03/20/17 07:58 03/20/17 07:58 03/20/17 07:58 Laboratory Results 03/19/17 05:02 03/19/17 05:02 03/19/17 03/20/17 03/21/17 05:59 05:59 05:59 Intake Total 600 Output Total 100 400 Balance -100 200 - Physical Exam Constitutional: chronically ill appearing, other (thin) Eyes: PERRL Ears, Nose, Mouth, Throat: hearing normal Cardiovascular: regular rate and rhythym Respiratory: no respiratory distress Gastrointestinal: normoactive bowel sounds Skin: warm Musculoskeletal: generalized weakness Neurologic: other (alert and oriented to himself and place) Psychiatric: interacting appropriately ICD10 Worksheet Patient Problems: Problems Problem Status Onset Fracture of pubic ramus Acute Parkinson disease Acute Acute encephalopathy Acute Acute right hip pain Acute Anemia Acute Closed right hip fracture Acute History of Parkinson's disease Acute Hypoxia Acute Multiple rib fractures Acute Pneumothorax, right Acute Radial styloid fracture Acute
[2017-03-20] MEDS: IBUPROFEN 200 MG TAB PO PRN (10:11)
[2017-03-20] MEDS: QUEtiapine FUMARATE 25 MG TAB PO SCH (19:52)
[2017-03-20] MEDS: BACLOFEN 10 MG TAB PO SCH (19:52)
[2017-03-20] MEDS: traZODone 50 MG TAB PO SCH (19:52)
[2017-03-21] MEDS ORDERED: NS 500 ML IV ONE (00:35)
[2017-03-21] MEDS ORDERED: NS 1,000 ML IV SCH (00:45)
[2017-03-21 05:33] LABS: ADD DIFF? NO; ADD MORPH? NO; ADD SCAN? NO; ATYPICAL LYMPHOCYTE FLAG 0 (0-99); FRAGMENT RBC FLAG 0 (0-99); HEMATOCRIT 36.8 % (40.0-51.0); HEMOGLOBIN 11.9 g/dL (13.7-17.5); LEFT SHIFT FLG 0 (0-99); LIPEMIA HEMOLYSIS FLAG 80 (0-99); MEAN CELL HEMOGLOBIN 29.7 pg (27.9-34.1); MEAN CELL HEMOGLOBIN CONCENTR. 32.3 g/dL (32.4-36.7); MEAN CELL VOLUME 91.8 fL (81.5-99.8); MEAN PLATELET VOLUME 9.3 fL (8.7-11.7); PLATELET CLUMPS FLAG 0 (0-99); PLATELET COUNT 192 10^3/uL (150-400); RED BLOOD CELL COUNT 4.01 10^6/uL (4.40-6.38); RED CELL DISTRIBUTION WIDTH 12.6 % (11.5-15.2)
[2017-03-21] MEDS: ACETAMINOPHEN 500 MG TAB PO SCH ×3 (05:48→22:37)
[2017-03-21 05:58] LABS: ANION GAP 7 mEq/L (8-16); CALCIUM 9.4 mg/dL (8.5-10.4); CARBON DIOXIDE 26 mEq/l (22-31); CHLORIDE 106 mEq/L (97-110); CREATININE 0.9 mg/dL (0.7-1.3); GLOMERULAR FILTRATION RATE > 60; GLUCOSE 82 mg/dL (70-100); POTASSIUM 4.5 mEq/L (3.5-5.2); SODIUM 139 mEq/L (134-144)
[2017-03-21] MEDS: CARBIDOPA/LEVO CR 50 MG/200 MG TAB PO SCH ×4 (08:31→20:29)
[2017-03-21] MEDS: MULTIVITAMINS 1 EACH TAB PO SCH (08:31)
[2017-03-21] MEDS: IBUPROFEN 200 MG TAB PO PRN (08:31)
[2017-03-21] MEDS: ENTACAPONE 200 MG TAB PO SCH ×4 (08:31→20:29)
[2017-03-21] MEDS: MIDODRINE HCL 5 MG TAB PO SCH ×4 (08:31→20:29)
[2017-03-21] MEDS: VENLAFAXINE XR 75 MG CAP PO SCH (08:31)
[2017-03-21] MEDS: ENOXAPARIN 40 MG/0.4 ML SYR SC SCH (08:31)
--- NOTE | 2017-03-21 09:22 | HOSPPROG ---
Hospitalist Progress Note Assessment/Plan: Mr. Brennan is a 71-year-old gentleman with Parkinson's disease. He had a fall prior to his admission. * Mechanical fall Physical therapy and Occupational therapy seeing him evaluated him today while PT was working with him, needs significant assistance * advanced Parkinson's likely the etiology of why he is falling home medications resumed very advanced * hypotension bp stable *underweight with a BMI of 18 eating well this morning *Left pubic ramus fx wbat trial of prn ibuprofen will avoid narcotics/ he gets very confused w them *right wrist fx from a fall *Plan: SNF today/ doesn't want him to go to [facility] or [facility]. Subjective: Rema has no complaints. Eating well. Objective: Vital Signs Temp Pulse Resp BP Pulse Ox 36.4 C 59 L 13 117/66 94 03/21/17 07:19 03/21/17 07:19 03/21/17 07:19 03/21/17 07:19 03/21/17 07:19 Laboratory Results 03/21/17 04:30 03/21/17 04:30 03/20/17 03/21/17 03/22/17 05:59 05:59 05:59 Intake Total 600 1100 Output Total 400 Balance 200 1100 - Physical Exam Constitutional: no apparent distress, other (thin) Eyes: PERRL Ears, Nose, Mouth, Throat: hearing normal Respiratory: no respiratory distress Gastrointestinal: normoactive bowel sounds Musculoskeletal: generalized weakness Neurologic: other (alert and oriented to himself, place, very soft spoken) Psychiatric: interacting appropriately, not anxious ICD10 Worksheet Patient Problems: Problems Problem Status Onset Fracture of pubic ramus Acute Parkinson disease Acute Acute encephalopathy Acute Acute right hip pain Acute Anemia Acute Closed right hip fracture Acute History of Parkinson's disease Acute Hypoxia Acute Multiple rib fractures Acute Pneumothorax, right Acute Radial styloid fracture Acute
--- NOTE | 2017-03-21 09:27 | PDIAF ---
- Diagnosis Diagnosis: l pubic ramus fx, recent r wrist fx, advanced parkinson, gait instability Code Status: Full Code - Medication Management Discharge Medications: Medications to Continue on Transfer Baclofen [Baclofen 10 mg (*)] 10 - 20 mg PO HS 12/16/14 [Last Taken 12/25/16] Carbidopa/Levo Cr 50/200Mg [SINEMET CR 50/200 MG (*)] 1 tab PO 08,,16,12/16 [Last Taken 12/26/16 12:00] Entacapone [Comtan] 200 mg PO 08,12,16,20 12/16/14 [Last Taken 12/26/16 12:00] Multivitamins [Multivitamin (*)] 1 each PO DAILY 12/16/14 [Last Taken 12/26/16] Polyethylene Glycol 3350 [Miralax 17 gm (*)] 17 gm PO DAILY PRN #0 pkt 07/04/15 [Last Taken Unknown] QUEtiapine FUMARATE [Seroquel 25 mg (*)] 25 mg PO HS 12/26/16 [Last Taken ] Gabapentin [Neurontin 100 MG (*)] 100 mg PO HS PRN 12/27/16 [Last Taken 12/25/16 ] Pantoprazole Sodium [Protonix 40mg (*)] 40 mg PO DAILY PRN 12/27/16 [Last Taken Unknown] Venlafaxine HCl [Venlafaxine HCl ER] 75 mg PO DAILY@08 12/27/16 [Last Taken 01/28] traZODone [traZODONE 50MG (*)] 25 mg PO HS 12/27/16 [Last Taken 12/25/16] Midodrine HCl [Proamatine/Midodrin] 5 mg PO 08,12,16,20 12/29/16 [Last Taken Unknown] Zolpidem Tartrate 5 mg PO HS PRN 03/18/17 [Last Taken Unknown] Acetaminophen [Tylenol ES 500 mg (*)] 1,000 mg PO Q8 #30 tab 03/21/17 [Last Taken Unknown] Ibuprofen [Motrin (*)] 400 mg PO Q6HRS PRN #30 tab 03/21/17 [Last Taken Unknown] Discharge Medications: Refer to the Discharge Home Medication list for PRN reason. - Orders Services needed: Physical Therapy, Occupational Therapy Diet Recommendation: no restrictions on diet Diet Texture: Dysphagia 3 - Advanced - Moist, Bite-Size, Thin Liquids, Meds Crushed in Puree Activity/Weight Bearing Restrictions: wbat /does best with a walker - Follow Up Care Current Providers and Referrals: Varsha Rea MD [Primary Care Provider] - As per Instructions Walt Hook MD [Medical Doctor] - As per Instructions
[2017-03-21] MEDS: QUEtiapine FUMARATE 25 MG TAB PO SCH (20:29)
[2017-03-21] MEDS: traZODone 50 MG TAB PO SCH (20:29)
[2017-03-21] MEDS: BACLOFEN 10 MG TAB PO SCH (20:29)
[2017-03-22] MEDS: ACETAMINOPHEN 500 MG TAB PO SCH ×3 (05:41→22:54)
[2017-03-22] MEDS: MIDODRINE HCL 5 MG TAB PO SCH ×4 (08:57→20:40)
[2017-03-22] MEDS: CARBIDOPA/LEVO CR 50 MG/200 MG TAB PO SCH ×4 (08:57→20:41)
[2017-03-22] MEDS: ENTACAPONE 200 MG TAB PO SCH ×4 (08:57→20:41)
[2017-03-22] MEDS: MULTIVITAMINS 1 EACH TAB PO SCH (08:57)
[2017-03-22] MEDS: VENLAFAXINE XR 75 MG CAP PO SCH (08:57)
[2017-03-22] MEDS: ENOXAPARIN 40 MG/0.4 ML SYR SC SCH (09:03)
--- NOTE | 2017-03-22 14:20 | HOSPPROG ---
Hospitalist Progress Note Assessment/Plan: Mr. Brennan is a 71-year-old gentleman with Parkinson's disease. He had a fall prior to his admission. * Mechanical fall Physical therapy and Occupational therapy seeing him evaluated him today while PT was working with him, needs significant assistance * advanced Parkinson's likely the etiology of why he is falling home medications resumed very advanced * hypotension bp stable *underweight with a BMI of 18 eating well this morning *Left pubic ramus fx wbat trial of prn ibuprofen doing well getting oob *right wrist fx from a fall *Plan: SNF soon/ doesn't want him to [facility] to [facility] or [facility]. Subjective: Rema said he has no pain. Objective: Vital Signs Temp Pulse Resp BP Pulse Ox 36.3 C 70 16 110/71 95 03/22/17 08:25 03/22/17 08:25 03/22/17 08:25 03/22/17 08:25 03/22/17 08:25 Laboratory Results 03/21/17 04:30 03/21/17 04:30 03/21/17 03/22/17 03/23/17 05:59 05:59 05:59 Intake Total 1100 900 Output Total 300 Balance 1100 600 - Physical Exam Constitutional: chronically ill appearing, other (thin) Eyes: PERRL, other (glasses on) Ears, Nose, Mouth, Throat: hearing normal Cardiovascular: regular rate and rhythym Respiratory: no respiratory distress Gastrointestinal: normoactive bowel sounds Skin: warm, normal color Musculoskeletal: generalized weakness Psychiatric: interacting appropriately, not anxious, not encephalopathic ICD10 Worksheet Patient Problems: Problems Problem Status Onset Fracture of pubic ramus Acute Parkinson disease Acute Acute encephalopathy Acute Acute right hip pain Acute Anemia Acute Closed right hip fracture Acute History of Parkinson's disease Acute Hypoxia Acute Multiple rib fractures Acute Pneumothorax, right Acute Radial styloid fracture Acute
[2017-03-22] MEDS: IBUPROFEN 200 MG TAB PO PRN (20:40)
[2017-03-22] MEDS: QUEtiapine FUMARATE 25 MG TAB PO SCH (20:40)
[2017-03-22] MEDS: traZODone 50 MG TAB PO SCH (20:40)
[2017-03-22] MEDS: BACLOFEN 10 MG TAB PO SCH (20:41)
[2017-03-23] MEDS: ACETAMINOPHEN 500 MG TAB PO SCH ×2 (05:57→13:36)
[2017-03-23 07:48] VITALS: BP 122/70; PULSE 64; RESP 14; TEMP 98; O2SAT 94
[2017-03-23] MEDS: MULTIVITAMINS 1 EACH TAB PO SCH (08:06)
[2017-03-23] MEDS: IBUPROFEN 200 MG TAB PO PRN (08:06)
[2017-03-23] MEDS: ENTACAPONE 200 MG TAB PO SCH ×2 (08:06→12:26)
[2017-03-23] MEDS: VENLAFAXINE XR 75 MG CAP PO SCH (08:06)
[2017-03-23] MEDS: MIDODRINE HCL 5 MG TAB PO SCH ×2 (08:06→12:26)
[2017-03-23] MEDS: CARBIDOPA/LEVO CR 50 MG/200 MG TAB PO SCH ×2 (08:06→12:26)
[2017-03-23] MEDS: ENOXAPARIN 40 MG/0.4 ML SYR SC SCH (08:07)
--- NOTE | 2017-03-23 08:44 | HOSPPROG ---
Hospitalist Progress Note Assessment/Plan: Mr. Brennan is a 71-year-old gentleman with Parkinson's disease. He had a fall prior to his admission. * Mechanical fall Physical therapy and Occupational therapy seeing him evaluated him today while PT was working with him, needs significant assistance * advanced Parkinson's likely the etiology of why he is falling home medications resumed very advanced * hypotension intermittent *underweight with a BMI of 18 eating well this morning *Left pubic ramus fx wbat trial of prn ibuprofen doing well getting oob *right wrist fx from a fall *Plan: dc today Subjective: Rema has no complaint/s ready to be dc Objective: Vital Signs Temp Pulse Resp BP Pulse Ox 36.7 C 64 14 122/70 H 94 03/23/17 07:46 03/23/17 07:46 03/23/17 07:46 03/23/17 07:46 03/23/17 07:46 Laboratory Results 03/21/17 04:30 03/21/17 04:30 03/22/17 03/23/17 03/24/17 05:59 05:59 05:59 Intake Total 900 Output Total 300 400 Balance 600 -400 - Physical Exam Constitutional: no apparent distress, chronically ill appearing, other (thin) Eyes: PERRL Ears, Nose, Mouth, Throat: hearing normal Cardiovascular: regular rate and rhythym Respiratory: no respiratory distress Gastrointestinal: normoactive bowel sounds Skin: warm Musculoskeletal: generalized weakness Neurologic: AAOx3 Psychiatric: interacting appropriately, flat affect ICD10 Worksheet Patient Problems: Problems Problem Status Onset Fracture of pubic ramus Acute Parkinson disease Acute Acute encephalopathy Acute Acute right hip pain Acute Anemia Acute Closed right hip fracture Acute History of Parkinson's disease Acute Hypoxia Acute Multiple rib fractures Acute Pneumothorax, right Acute Radial styloid fracture Acute
--- NOTE | 2017-03-23 11:20 | PDIAF ---
- Diagnosis Diagnosis: l pubic ramus fx, recent r wrist fx, advanced parkinson, gait instability Code Status: Full Code - Medication Management Discharge Medications: Medications to Continue on Transfer Baclofen [Baclofen 10 mg (*)] 10 - 20 mg PO HS 12/16/14 [Last Taken 12/25/16] Carbidopa/Levo Cr 50/200Mg [SINEMET CR 50/200 MG (*)] 1 tab PO 08,,16,12/16 [Last Taken 12/26/16 12:00] Entacapone [Comtan] 200 mg PO 08,12,16,20 12/16/14 [Last Taken 12/26/16 12:00] Multivitamins [Multivitamin (*)] 1 each PO DAILY 12/16/14 [Last Taken 12/26/16] Polyethylene Glycol 3350 [Miralax 17 gm (*)] 17 gm PO DAILY PRN #0 pkt 07/04/15 [Last Taken Unknown] QUEtiapine FUMARATE [Seroquel 25 mg (*)] 25 mg PO HS 12/26/16 [Last Taken ] Gabapentin [Neurontin 100 MG (*)] 100 mg PO HS PRN 12/27/16 [Last Taken 12/25/16 ] Pantoprazole Sodium [Protonix 40mg (*)] 40 mg PO DAILY PRN 12/27/16 [Last Taken Unknown] Venlafaxine HCl [Venlafaxine HCl ER] 75 mg PO DAILY@08 12/27/16 [Last Taken 01/28] traZODone [traZODONE 50MG (*)] 25 mg PO HS 12/27/16 [Last Taken 12/25/16] Midodrine HCl [Proamatine/Midodrin] 5 mg PO 08,12,16,20 12/29/16 [Last Taken Unknown] Zolpidem Tartrate 5 mg PO HS PRN 03/18/17 [Last Taken Unknown] Acetaminophen [Tylenol ES 500 mg (*)] 1,000 mg PO Q8 #30 tab 03/21/17 [Last Taken Unknown] Ibuprofen [Motrin (*)] 400 mg PO Q6HRS PRN #30 tab 03/21/17 [Last Taken Unknown] Discharge Medications: Refer to the Discharge Home Medication list for PRN reason. - Orders Services needed: Physical Therapy, Occupational Therapy Diet Recommendation: no restrictions on diet Activity/Weight Bearing Restrictions: wbat /does best with a walker - Follow Up Care Current Providers and Referrals: Varsha Rea MD [Primary Care Provider] - As per Instructions Walt Hook MD [Medical Doctor] - As per Instructions
--- NOTE | 2017-03-23 11:58 | GDS ---
[f rep st] DISCHARGE SUMMARY DISCHARGE DIAGNOSES: 1. Mechanical fall. 2. Advanced Parkinson's. 3. Hypotension. 4. Underweight with a body mass index of 18. 5. Left pubic ramus fracture. 6. Right wrist fracture prior to this admission. HISTORY OF PRESENT ILLNESS: Briefly, the patient is a 71-year-old gentleman with Parkinson disease, who had a fall. It is unclear if he hit his head, but he did not have any headache. He had difficulty and pain with walking and really struggled, and it was noted that he had a left pubic ramus fracture. Also, he had another fall that did not result in this hospitalization that resulted in a right wrist fracture. He will be discharged to [facility] for rehabilitation and follow up with Dr. Hook in the outpatient setting. HOSPITAL COURSE: 1. Gait instability. I suspect this is due to his advanced Parkinson's. He has done well with physical therapy and occupational therapy. 2. Advanced Parkinson's. Home medications have been resumed. 3. Hypotension. Blood pressure stable this morning. 4. Underweight with a BMI of 18. He eats and drinks well. 5. Left pubic ramus fracture. He can be weightbearing as tolerated. Ibuprofen has helped. 6. Right wrist fracture. Follow up with Dr. Hook. PENDING LABS AND TESTS: None. CONDITION AT DISCHARGE: Stable. Blood pressure is 122/70, O2 sats on room air 94%, respiratory rate is 14, pulse is 64, temperature is 36.7 Celsius. MEDICATIONS AT DISCHARGE: Please see the EMR. DISCHARGE INSTRUCTIONS: 1. Follow up with Dr. Hook. 2. Weightbearing as tolerated. Greater than 30 minutes discharging and coordinating care. I will also update Dr. Rea on the patient's admission and discharge. /[id number]/MODL MTDD
== END 2017-03-23 14:38 | DRG 536 ==
LOC: OBSVTOIN 15:26 → F3N 19:36
PROVIDERS: ADMIT Internal Medicine; ATTEND Internal Medicine
DX: S32.592A Other specified fracture of left pubis, initial encounter for closed fracture (principal); Z68.1 Body mass index [BMI] 19.9 or less, adult; G20 Parkinson's disease; S52.501D Unspecified fracture of the lower end of right radius, subsequent encounter for closed fracture with routine healing; S52.601D Unspecified fracture of lower end of right ulna, subsequent encounter for closed fracture with routine healing; I95.9 Hypotension, unspecified; R63.6 Underweight; G47.00 Insomnia, unspecified; Z96.642 Presence of left artificial hip joint; W19.XXXA Unspecified fall, initial encounter
CPT/HCPCS: 92526-GN; 92610-GN; 97110-GP; 97116-GP; 97162-GP; 97166-GO; 97530-GO; 97535-GO; G8978-GP-CM; G8979-GP-CK; G8987-GO-CM; G8988-GO-CJ; G8996-GN-CJ; G8997-GN-CI; G8997-GN-CJ; G8998-GN-CI; J1650

== ENCOUNTER 2017-07-01 21:47 | Observation (INO) | payer OTHER ==
[2017-07-01] MEDS ORDERED: NS 1,000 ML IV ONE (21:50)
[2017-07-01] MEDS ORDERED: LORazepam 2 MG/ML INJ IVP ONE (21:50)
--- NOTE | 2017-07-01 21:53 | EDPHY ---
H & P HPI/ROS: HPI CHIEF COMPLAINT: FTT, Generalized Weakness. HISTORY OF PRESENT ILLNESS: This patient is 71-year-old male, significant past medical history for Parkinson's disease and dementia, he presents emergency room by EMS for failure to thrive. His called 911 this evening for generalized weakness he has not been eating for few days. He declines medications. became concerned as he appears to be declining and did not know how to help him so brought into the emergency room. Here in emergency room the patient is slow to respond however this is close to his baseline. And he has no complaints. Parkinson tremor noticed. Past Medical History: Dementia, Parkinson's disease Past Surgical History: No Recent surgery Social History: Denies drugs alcohol tobacco. Lives locally. at bedside. Family History: Noncontributory ROS REVIEW OF SYSTEMS: A comprehensive 10 point review of systems is otherwise negative aside from elements mentioned in the history of present illness. Exam Constitutional appears well nontoxic, triage nursing summary reviewed, vital signs reviewed, awake/alert. Eyes normal conjunctivae and sclera, EOMI, PERRLA. HENT normal inspection, atraumatic, moist mucus membranes, no epistaxis, neck supple/ no meningismus, no raccoon eyes. Respiratory clear to auscultation bilaterally, normal breath sounds, no respiratory distress, no wheezing. Cardiovascular rate normal, regular rhythm, no murmur, no edema, distal pulses normal. Gastrointestinal soft, non-tender, no rebound, no guarding, normal bowel sounds, no distension, no pulsatile mass. Genitourinary no CVA tenderness. Musculoskeletal no midline vertebral tenderness, full range of motion, no calf swelling, no tenderness of extremities, no meningismus, good pulses, neurovascularly intact. Skin pink, warm, & dry, no rash, skin atraumatic. Neurologic neurological baseline, tremulous, awake, alert and oriented x 3, AAOx3, moves all 4 extremities equally, motor intact, sensory intact, CN II-XII intact, normal cerebellar, normal vision, normal speech. Psychiatric normal mood/affect. Heme/Lymph/Immune no lymphadenopathy. Differential Diagnosis: Includes but is not limited to in a particular order: Dehydration, electrolyte disturbance, failure to thrive, worsening Parkinson's, worsening dementia, infection, electrolyte disturbance Medical Decision Making: Plan for this patient IV establishment fluid bolus, check basic blood work including electrolytes and white count, UA, IV hydration Ativan. Re-evaluation: 2242: This patient here with dementia, Parkinson's disease. Will need admission for failure to thrive. Case management consult. 2252: Spoke with Dr. Campbell. Agrees to admit. Admit for FTT, Gen Weakness, Parkinsons, Protein Calorie Malnutrition. Source: Patient, EMS - Personal History Tetanus Vaccine Date: <10 years - Medical/Surgical History Hx Asthma: No Hx Chronic Respiratory Disease: No Hx Diabetes: No Hx Cardiac Disease: No Hx Renal Disease: No Hx Cirrhosis: No Hx Alcoholism: No Hx HIV/AIDS: No Hx Splenectomy or Spleen Trauma: No Other PMH: Parkinsons, depression, insomnia, bilateral knee resurfacing, L hip replacement, R hip elo - Social History Smoking Status: Never smoked Constitutional: Initial Vital Signs Temperature (C) 37.1 C 07/01/17 21:57 Heart Rate 72 07/01/17 21:57 Respiratory Rate 18 07/01/17 21:57 Blood Pressure 135/72 H 07/01/17 21:57 O2 Sat (%) 92 07/01/17 21:57 O2 Delivery Mode Room Air Allergies/Adverse Reactions: morphine Allergy (Verified 07/01/17 21:53) Home Medications: Medication Instructions Recorded Baclofen [Baclofen 10 mg (*)] 10 - 20 mg PO HS 12/16/14 Carbidopa/Levo Cr 50/200Mg 1 tab PO ,,16,20 12/16/14 [SINEMET CR 50/200 MG (*)] Entacapone [Comtan] 200 mg PO ,,16,20 12/16/14 Multivitamins [Multivitamin (*)] 1 each PO DAILY 12/16/14 Polyethylene Glycol 3350 [Miralax 17 gm PO DAILY PRN #0 pkt 07/04/15 17 gm (*)] QUEtiapine FUMARATE [Seroquel 25 25 mg PO HS 12/26/16 mg (*)] Gabapentin [Neurontin 100 MG (*)] 100 mg PO HS PRN 12/27/16 Pantoprazole Sodium [Protonix 40mg 40 mg PO DAILY PRN 12/27/16 (*)] Venlafaxine HCl [Venlafaxine HCl 75 mg PO DAILY@08 12/27/16 ER] traZODone [traZODONE 50MG (*)] 25 mg PO HS 12/27/16 Midodrine HCl [Proamatine/Midodrin] 5 mg PO 08,12,16,20 12/29/16 Zolpidem Tartrate 5 mg PO HS PRN 03/18/17 Acetaminophen [Tylenol ES 500 mg 1,000 mg PO Q8 #30 tab 03/21/17 (*)] Ibuprofen [Motrin (*)] 400 mg PO Q6HRS PRN #30 tab 03/21/17 Diclofenac 0.1% 07/01/17 Naproxen 07/01/17 Protonix 07/01/17 Medical Decision Making - Diagnostics Imaging Results: Imaging Impressions Chest X-Ray 07/01/17 21:53 Impression: No evidence for acute cardiopulmonary abnormality. - Data Points Laboratory Results: Laboratory Results 07/01/17 21:35 07/01/17 21:35 07/01/17 07/01/17 07/01/17 21:35 21:35 21:35 WBC 6.40 10^3/uL 10^3/uL (3.80-9.50) RBC 4.52 10^6/uL 10^6/uL (4.40-6.38) Hgb 14.1 g/dL g/dL (13.7-17.5) Hct 41.2 % % (40.0-51.0) MCV 91.2 fL fL (81.5-99.8) MCH 31.2 pg pg (27.9-34.1) MCHC 34.2 g/dL g/dL (32.4-36.7) RDW 12.8 % % (11.5-15.2) Plt Count 286 10^3/uL 10^3/uL (150-400) MPV 8.6 fL L fL (8.7-11.7) Neut % (Auto) 65.5 % % (39.3-74.2) Lymph % (Auto) 26.4 % % (15.0-45.0) [place] % (Auto) 6.7 % % (4.5-13.0) Eos % (Auto) 0.9 % % (0.6-7.6) Baso % (Auto) 0.2 % L % (0.3-1.7) Nucleat RBC Rel Count 0.0 % % (0.0-0.2) Absolute Neuts (auto) 4.19 10^3/uL 10^3/uL (1.70-6.50) Absolute Lymphs (auto) 1.69 10^3/uL 10^3/uL (1.00-3.00) Absolute Monos (auto) 0.43 10^3/uL 10^3/uL (0.30-0.80) Absolute Eos (auto) 0.06 10^3/uL 10^3/uL (0.03-0.40) Absolute Basos (auto) 0.01 10^3/uL L 10^3/uL (0.02-0.10) Absolute Nucleated RBC 0.00 10^3/uL 10^3/uL (0-0.01) Immature Gran % 0.3 % % (0.0-1.1) Immature Gran # 0.02 10^3/uL 10^3/uL (0.00-0.10) PT 14.0 SEC SEC (12.0-15.0) INR 1.09 (0.83-1.16) APTT 32.6 SEC SEC (23.0-38.0) Sodium 137 mEq/L mEq/L (134-144) Potassium 4.2 mEq/L mEq/L (3.5-5.2) Chloride 101 mEq/L mEq/L (97-110) Carbon Dioxide 25 mEq/l mEq/l (22-31) Anion Gap 11 mEq/L mEq/L (8-16) BUN 19 mg/dL mg/dL (7-23) Creatinine 1.0 mg/dL mg/dL (0.7-1.3) Estimated GFR > 60 Glucose 82 mg/dL mg/dL (70-100) Calcium 9.9 mg/dL mg/dL (8.5-10.4) Total Bilirubin 1.4 mg/dL mg/dL (0.1-1.4) Conjugated Bilirubin 0.7 mg/dL H mg/dL (0.0-0.5) Unconjugated Bilirubin 0.7 mg/dL mg/dL (0.0-1.1) AST 29 IU/L IU/L (17-59) ALT 17 IU/L L IU/L (21-72) Alkaline Phosphatase 113 IU/L IU/L (38-126) Troponin I < 0.012 ng/mL ng/mL (0.000-0.034) Total Protein 7.4 g/dL g/dL (6.3-8.2) Albumin 4.7 g/dL g/dL (3.5-5.0) Medications Given: Discontinued Medications Sodium Chloride (Ns) 1,000 mls @ 0 mls/hr IV EDNOW ONE; Wide Open PRN Reason: Protocol Stop: 07/01/17 21:51 Last Admin: 07/01/17 22:04 Dose: 1,000 mls Lorazepam (Ativan Injection) 1 mg IVP EDNOW ONE Stop: 07/01/17 21:51 Last Admin: 07/01/17 22:04 Dose: 1 mg Departure - Departure Disposition: [facility] Acute Clinical Impression: Generalized weakness, Parkinsons disease Failure to thrive Qualifiers: Failure to thrive age range: in adult Qualified Code(s): R62.7 - Adult failure to thrive Condition: Fair
[2017-07-01 22:04] LABS: PLATELET COUNT 286 10^3/uL (150-400)
[2017-07-01 22:15] LABS: INR 1.09 (0.83-1.16)
[2017-07-01] MEDS ORDERED: ACETAMINOPHEN 650 MG SUPP PR PRN (23:10)
[2017-07-01] MEDS ORDERED: LORazepam 0.5 MG TAB PO PRN (23:10)
[2017-07-01] MEDS ORDERED: ONDANSETRON DISINTEGRATING 4 MG TAB PO PRN (23:10)
[2017-07-01] MEDS ORDERED: ACETAMINOPHEN 325 MG TAB PO PRN (23:10)
[2017-07-01] MEDS ORDERED: ONDANSETRON 4 MG/2 ML VIAL IVP PRN (23:10)
[2017-07-02] MEDS: NS 1,000 ML IV SCH ×2 (00:58→13:34)
[2017-07-02] MEDS ORDERED: LORazepam 2 MG/ML INJ ONE (03:48)
[2017-07-02 05:10] LABS: PLATELET COUNT 231 10^3/uL (150-400)
[2017-07-02 05:28] LABS: CREATINE KINASE 74 IU/L (0-224)
--- NOTE | 2017-07-02 07:58 | PDGENHP ---
History and Physical - Chief Complaint weakness - History of Present Illness Source - patient answers only a few yes no questions. He received ativan prior to my arrival for history of night time agitation. History limited to EMR and discussion with ED provider as patient left for night. HPI - Pleasant 71 yo M with pmhx significant for Parkinson disease, Parkinson dementia who presents to the ED today with complaints of generalized weakness with inhibited mobility and decreased oral intake for several days. Patient sx have been progressive. No known reports of fevers/chills or recent illness otherwise. Patient lives at home with but has been unable to ambulate and requiring increasing care. At time of my interview patient able to answer a few yes no questions. He denies any pain or discomfort. He reports feeling tired. History Information - Allergies/Home Medication List Allergies/Adverse Reactions: morphine Allergy (Verified 07/01/17 21:53) Home Medications: RX: Baclofen [Baclofen 10 mg (*)] 10 - 20 mg PO HS 12/16/14 [Last Taken 12/25/16 ] RX: Carbidopa/Levo Cr 50/200Mg [SINEMET CR 50/200 MG (*)] 1 tab PO 08,12,16,20 12/16/14 [Last Taken 12/26/16 12:00] RX: Entacapone [Comtan] 200 mg PO 08,12,16,20 12/16/14 [Last Taken 12/26/16 12: 00] RX: Multivitamins [Multivitamin (*)] 1 each PO DAILY 12/16/14 [Last Taken ] RX: QUEtiapine FUMARATE [Seroquel 25 mg (*)] 25 mg PO HS 12/26/16 [Last Taken ] RX: Gabapentin [Neurontin 100 MG (*)] 100 mg PO HS PRN 12/27/16 [Last Taken ] RX: Pantoprazole Sodium [Protonix 40mg (*)] 40 mg PO DAILY PRN 12/27/16 [Last Taken Unknown] RX: Venlafaxine HCl [Venlafaxine HCl ER] 75 mg PO DAILY@08 12/27/16 [Last Taken 03/18/17] RX: traZODone [traZODONE 50MG (*)] 25 mg PO HS 12/27/16 [Last Taken 12/25/16] RX: Midodrine HCl [Proamatine/Midodrin] 5 mg PO 08,12,16,20 12/29/16 [Last Taken Unknown] RX: Zolpidem Tartrate 5 mg PO HS PRN 03/18/17 [Last Taken Unknown] Diclofenac 0.1% 07/01/17 [Last Taken Unknown] Naproxen 07/01/17 [Last Taken Unknown] Protonix 07/01/17 [Last Taken Unknown] I have personally reviewed and updated: family history, medical history, social history, surgical history - Past Medical History Additional medical history: Parkinson disease, Parkinson dementia, hx pubic rami fracture 03/2017, hx fall and pneumothorax 12/2016. hx right wrist fracture. depression. insomnia with evening agitation noted in accompanying outpatient charts. GERD. - Surgical History Additional surgical history: bilateral knee resurfacing, L hip replacement. Right hip ORIF. - Family History Additional family history: unobtainable. - Social History Smoking Status: Never smoked Alcohol Use: None Drug Use: None Additional social history: . Lives with . Review of Systems Review of Systems: unable to obtain detailed ROS 2/2 patient mentation/fatigue. + fatigue and generalized weakness. decreased appetite. denies abdominal pain, chest pain, sob. no fevers/chills. Constitutional: Reports: malaise, weakness Cardiac: Denies: chest pain Respiratory: Denies: no symptoms Neurological: Reports: weakness (generalized). Denies: headache Physical Exam Physical Exam: Temp Pulse Resp BP Pulse Ox 37.0 C 67 18 138/59 H 93 07/02/17 00:14 07/02/17 00:14 07/02/17 00:14 07/02/17 00:14 07/02/17 00:14 Constitutional: no apparent distress, not in pain, chronically ill appearing, No uncomfortable Eyes: No icteric sclera, No scleral injection Ears, Nose, Mouth, Throat: dry mucous membranes Cardiovascular: regular rate and rhythym, no murmur, rub, or gallop, No edema Peripheral Pulses: 1+: dorsalis-pedis (R), dorsalis-pedis (L) Respiratory: no respiratory distress, no rales or rhonchi Gastrointestinal: normoactive bowel sounds, soft, non-tender abdomen, no palpable masses, No tenderness Genitourinary: no bladder fullness, No beckham in urethra Skin: warm, normal color, No rash Musculoskeletal: generalized weakness, other (limited 2/2 patient somnolence. ) Neurologic: weakness (generalized. tremor present in all extremities when awake and resolve when patient falls asleep.), No facial droop Psychiatric: not anxious, other (limited evaluation 2/2 patient somnolence. ) Lab Data & Imaging Review 07/02/17 04:44 07/02/17 04:44 WBC 3.91 10^3/uL (3.80-9.50) 07/02/17 04:44 RBC 4.06 10^6/uL (4.40-6.38) L 07/02/17 04:44 Hgb 12.6 g/dL (13.7-17.5) L 07/02/17 04:44 Hct 37.3 % (40.0-51.0) L 07/02/17 04:44 MCV 91.9 fL (81.5-99.8) 07/02/17 04:44 MCH 31.0 pg (27.9-34.1) 07/02/17 04:44 MCHC 33.8 g/dL (32.4-36.7) 07/02/17 04:44 RDW 12.8 % (11.5-15.2) 07/02/17 04:44 Plt Count 231 10^3/uL (150-400) D 07/02/17 04:44 MPV 8.6 fL (8.7-11.7) L 07/02/17 04:44 Neut % (Auto) 58.3 % (39.3-74.2) 07/02/17 04:44 Lymph % (Auto) 30.9 % (15.0-45.0) 07/02/17 04:44 [place] % (Auto) 8.2 % (4.5-13.0) 07/02/17 04:44 Eos % (Auto) 2.0 % (0.6-7.6) 07/02/17 04:44 Baso % (Auto) 0.3 % (0.3-1.7) 07/02/17 04:44 Nucleat RBC Rel Count 0.0 % (0.0-0.2) 07/02/17 04:44 Absolute Neuts (auto) 2.28 10^3/uL (1.70-6.50) 07/02/17 04:44 Absolute Lymphs (auto) 1.21 10^3/uL (1.00-3.00) 07/02/17 04:44 Absolute Monos (auto) 0.32 10^3/uL (0.30-0.80) 07/02/17 04:44 Absolute Eos (auto) 0.08 10^3/uL (0.03-0.40) 07/02/17 04:44 Absolute Basos (auto) 0.01 10^3/uL (0.02-0.10) L 07/02/17 04:44 Absolute Nucleated RBC 0.00 10^3/uL (0-0.01) 07/02/17 04:44 Immature Gran % 0.3 % (0.0-1.1) 07/02/17 04:44 Immature Gran # 0.01 10^3/uL (0.00-0.10) 07/02/17 04:44 PT 14.0 SEC (12.0-15.0) 07/01/17 21:35 INR 1.09 (0.83-1.16) 07/01/17 21:35 APTT 32.6 SEC (23.0-38.0) 07/01/17 21:35 Sodium 141 mEq/L (134-144) 07/02/17 04:44 Potassium 4.2 mEq/L (3.5-5.2) 07/02/17 04:44 Chloride 109 mEq/L (97-110) 07/02/17 04:44 Carbon Dioxide 23 mEq/l (22-31) 07/02/17 04:44 Anion Gap 9 mEq/L (8-16) 07/02/17 04:44 BUN 19 mg/dL (7-23) 07/02/17 04:44 Creatinine 1.0 mg/dL (0.7-1.3) 07/02/17 04:44 Estimated GFR > 60 07/02/17 04:44 Glucose 75 mg/dL (70-100) 07/02/17 04:44 Calcium 9.2 mg/dL (8.5-10.4) 07/02/17 04:44 Phosphorus 3.4 mg/dL (2.5-4.5) 07/02/17 04:44 Magnesium 1.9 mg/dL (1.6-2.3) 07/02/17 04:44 Total Bilirubin 1.4 mg/dL (0.1-1.4) 07/01/17 21:35 Conjugated Bilirubin 0.7 mg/dL (0.0-0.5) H 07/01/17 21:35 Unconjugated Bilirubin 0.7 mg/dL (0.0-1.1) 07/01/17 21:35 AST 29 IU/L (17-59) 07/01/17 21:35 ALT 17 IU/L (21-72) L 07/01/17 21:35 Alkaline Phosphatase 113 IU/L (38-126) 07/01/17 21:35 Creatine Kinase 74 IU/L (0-224) 07/02/17 04:44 Troponin I < 0.012 ng/mL (0.000-0.034) 07/01/17 21:35 Total Protein 7.4 g/dL (6.3-8.2) 07/01/17 21:35 Albumin 4.7 g/dL (3.5-5.0) 07/01/17 21:35 TSH 3.200 uIU/mL (0.465-4.680) 07/02/17 04:44 Visualized and Interpreted Chest x-ray results: Yes Chest X-Ray results: normal Assessment & Plan Assessment: Failure to thrive (Acute) Generalized weakness (Acute) Parkinson disease (Acute) 71 yo M with hx Parkinson disease and dementia presents with progressive decline , generalized weakness and Failure to thrive. 1. generalized weakness - workup negative for infectious or metabolic process. troponin negative. TSH appropriate. Patient weight appears stable from 03/2017 but have requested dietary consultation. Likely related to poor oral intake last few days, dehydration and progressive decline of Parkinson. PT/OT consulted. 2. failure to thrive - plan as above. case management consult. 3. Parkinson disease - continue sinemet. entacapone. 4. Parkinson dementia without behavioral disturbance. ativan prn for evening . seroquel. 5. insomnia - trazodone, ativan prn. 6. depression - continue effexor. 7. chronic pain - continue gabapentin. hold off on baclofen for now. 8. hypotension - continue midodrine prn if indicated. FEN - IVF for gentle hydration overnight. electrolyte replacement prn. advance diet as tolerated. PPX - SCDs. lovenox. COR - not at bedside to verify. per previous visits will leave as FULL COR. Dispo - Admit to inpatient status. PAtient with significant decline and increasing needs and assistance. Acute therapy currently needed. Case management consultation to assist with evaluation for possible placement. Day team to discuss further with patient's when available.
[2017-07-02] MEDS ORDERED: CARBIDOPA/LEVO CR 50 MG/200 MG TAB PO ONE (09:50)
[2017-07-02] MEDS: ENOXAPARIN 40 MG/0.4 ML SYR SC SCH (09:59)
--- NOTE | 2017-07-02 11:12 | HOSPPROG ---
Hospitalist Progress Note Assessment/Plan: 71 yo M with hx Parkinson disease and dementia presents with progressive decline , generalized weakness and Failure to thrive. # generalized weakness - failing to thrive at home- certainly concerning for progressive Parkinsons- however must complete the workup for infectious or metabolic processes troponin negative, TSH wnl, WBC normal and CXR (personally reviewed and interpreted) without infiltrates oxygen saturations 95% on RA - check UA - give small IVF for volume depletion - PT/OT # Advanced Parkinson disease with dementia- followed at neurology - -continue Sinemet - continue entacapone. - will review with Neurology to make sure nothing missing from regimen that could assist - cont Seroquel # Severe protein calorie malnutrition - pt appears cachectic on examination - 5Kg weight loss since visit in March 2017 - dietary consultation # depression - continue Effexor. # chronic pain - continue gabapentin, ibuprofen, Voltaren topical # hypotension - continue midodrine prn if indicated. # FEN - regular diet - nourishment and dietary consult # proph - Lovenox # dispo - > 2 MN as requires dietary, CM and therapy consultations for recs related to safe disposition I have discussed the case with PharmD - we will continue 5x daily Sinemet at our dosing intervals as has not been available this am by phone Subjective: feels shaky Objective: Vital Signs Temp Pulse Resp BP Pulse Ox 36.9 C 55 L 18 160/95 H 95 07/02/17 08:09 07/02/17 08:09 07/02/17 08:09 07/02/17 08:09 07/02/17 08:09 Laboratory Results 07/02/17 04:44 07/02/17 04:44 07/01/17 07/02/17 07/03/17 05:59 05:59 05:59 Intake Total 1450 Output Total 0 300 Balance 1450 -300 PT 14.0 SEC (12.0-15.0) 07/01/17 21:35 INR 1.09 (0.83-1.16) 07/01/17 21:35 - Physical Exam Constitutional: cachectic Eyes: anicteric sclera Ears, Nose, Mouth, Throat: dry mucous membranes Cardiovascular: regular rate and rhythym Respiratory: no respiratory distress, no rales or rhonchi Gastrointestinal: normoactive bowel sounds Genitourinary: no bladder fullness Skin: normal color Musculoskeletal: No asymmetric calves Neurologic: AAOx3 Psychiatric: depressed, flat affect Lymph, Heme, Immunologic: no cervical LAD ICD10 Worksheet Patient Problems: Problems Problem Status Onset Failure to thrive Acute Generalized weakness Acute Parkinson disease Acute Acute encephalopathy Acute Acute right hip pain Acute Anemia Acute Closed right hip fracture Acute Fracture of pubic ramus Acute History of Parkinson's disease Acute Hypoxia Acute Multiple rib fractures Acute Pneumothorax, right Acute Radial styloid fracture Acute
[2017-07-02] MEDS ORDERED: SENNOSIDES/DOCUSATE SODIUM TAB PO PRN (11:16)
[2017-07-02] MEDS ORDERED: traZODone 50 MG TAB PO PRN (11:16)
--- NOTE | 2017-07-02 11:17 | PDMN ---
Medical Necessity Medical necessity: est los >2 mn for Parkinson's, FTT, w/significant decline, weakness, inability to ambulate, several days of decreased oral intake, unable to manage symptoms at home; admit for acute therapy, IVF; comorbid Parkinson dementia, depression, chronic pain, hx hypotension; per H&P & order 07/01/17
[2017-07-02] MEDS ORDERED: LIDOCAINE/PRILOCAINE 1 EACH CRTUBE TP SCH (11:30)
[2017-07-02] MEDS: POLYETHYLENE GLYCOL 3350 17 GM PKT PO SCH (11:40)
[2017-07-02] MEDS: PANTOPRAZOLE SODIUM 40 MG TAB PO SCH (11:40)
[2017-07-02] MEDS: VENLAFAXINE XR 75 MG CAP PO SCH (11:41)
[2017-07-02] MEDS: DICLOFENAC SODIUM 1% 100 GM GEL TP SCH ×3 (13:27→21:18)
[2017-07-02] MEDS: ENTACAPONE 200 MG TAB PO SCH ×3 (13:27→21:17)
[2017-07-02] MEDS: CARBIDOPA/LEVO CR 50 MG/200 MG TAB PO SCH ×3 (13:28→21:17)
[2017-07-02] MEDS: MIDODRINE HCL 5 MG TAB PO SCH ×2 (16:20→21:17)
--- NOTE | 2017-07-02 17:15 | ASMTCMCOM ---
CM Note CM Note Notes: Pt with hx of parkinson's disease and dementia admitted with weakness and failute to thrive. Per H&P, pt is requiring increasing care at home. At pt's last admission in Mar he DC'd to [facility] [place]. C/M will discuss DC plan with pt's Monica in the morning. Date Signed: 07/02/2017 05:15 PM Electronically Signed By:Monik Mejia LCSW
--- NOTE | 2017-07-02 17:15 | ASMTCMCOM ---
CM Note CM Note Notes: Pt with hx of parkinson's disease and dementia admitted with weakness and failute to thrive. Per H&P, pt is requiring increasing care at home. At pt's last admission in Mar he DC'd to [facility]. C/M will discuss DC plan with pt's Monica in the morning. Date Signed: 07/02/2017 05:15 PM Electronically Signed By:Monik Mejia LCSW
[2017-07-02] MEDS ORDERED: NAPROXEN SODIUM 500 MG PO SCH (18:00)
[2017-07-02] MEDS: NAPROXEN SODIUM 220 MG TAB PO SCH (18:42)
[2017-07-02] MEDS: GABAPENTIN 100 MG CAP PO SCH (21:16)
[2017-07-02] MEDS: clonazePAM 0.5 MG TAB PO SCH (21:17)
[2017-07-02] MEDS: QUEtiapine FUMARATE 25 MG TAB PO SCH (21:17)
[2017-07-03] MEDS: NS 1,000 ML IV SCH ×2 (02:19→17:36)
[2017-07-03] MEDS: CARBIDOPA/LEVO CR 50 MG/200 MG TAB PO SCH ×5 (05:09→21:49)
[2017-07-03] MEDS: ENTACAPONE 200 MG TAB PO SCH ×5 (05:09→21:49)
[2017-07-03] MEDS: DICLOFENAC SODIUM 1% 100 GM GEL TP SCH ×4 (05:10→21:48)
[2017-07-03] MEDS: MIDODRINE HCL 5 MG TAB PO SCH ×3 (09:21→21:49)
[2017-07-03] MEDS: NAPROXEN SODIUM 220 MG TAB PO SCH ×2 (09:21→18:15)
[2017-07-03] MEDS: CYANO/VITAMIN B12 1000 MCG TAB PO SCH (09:22)
[2017-07-03] MEDS: VENLAFAXINE XR 75 MG CAP PO SCH (09:22)
[2017-07-03] MEDS: POLYETHYLENE GLYCOL 3350 17 GM PKT PO SCH (09:22)
[2017-07-03] MEDS: ENOXAPARIN 40 MG/0.4 ML SYR SC SCH (09:22)
[2017-07-03] MEDS: PANTOPRAZOLE SODIUM 40 MG TAB PO SCH (09:22)
--- NOTE | 2017-07-03 10:29 | HOSPPROG ---
Hospitalist Progress Note Assessment/Plan: 71 yo M with hx Parkinson disease and dementia presents with progressive decline , generalized weakness and Failure to thrive. # generalized weakness - failing to thrive at home- certainly concerning for progressive Parkinsons- majority of the workup for infectious or metabolic processes complete and negative troponin negative, TSH wnl, WBC normal and CXR (personally reviewed and interpreted) without infiltrates , UA negative oxygen saturations 92% on RA - give small IVF for volume depletion- until PO improved - PT/OT - neuro recs pending # Advanced Parkinson disease with dementia- followed at neurology - -continue Sinemet - continue entacapone. - Neuro to see today - cont Seroquel # Severe protein calorie malnutrition - pt appears cachectic on examination - 5Kg weight loss since visit in March 2017 - dietary consultation # depression - continue Effexor. # chronic pain - continue gabapentin, ibuprofen, Voltaren topical # hypotension - continue midodrine prn if indicated. # FEN - regular diet - nourishment and dietary consult # proph - Lovenox # dispo - > 2 MN as requires dietary, CM and therapy consultations for recs related to safe disposition I have discussed the case with Dr. Moran - he will consult for recs related to Parkinsons Subjective: improved appetite this am Objective: Vital Signs Temp Pulse Resp BP Pulse Ox 36.3 C 61 16 129/81 H 92 07/03/17 08:13 07/03/17 08:13 07/03/17 08:13 07/03/17 08:13 07/03/17 08:13 Laboratory Results 07/02/17 04:44 07/03/17 05:09 07/02/17 07/03/17 07/04/17 05:59 05:59 05:59 Intake Total 1450 2785 75 Output Total 0 2300 700 Balance 1450 485 -625 PT 14.0 SEC (12.0-15.0) 07/01/17 21:35 INR 1.09 (0.83-1.16) 07/01/17 21:35 - Physical Exam Constitutional: chronically ill appearing, cachectic Eyes: anicteric sclera Ears, Nose, Mouth, Throat: dry mucous membranes Cardiovascular: regular rate and rhythym Respiratory: no respiratory distress, no rales or rhonchi Gastrointestinal: normoactive bowel sounds Genitourinary: no bladder fullness Skin: warm, normal color Musculoskeletal: No asymmetric calves Neurologic: No AAOx3 Psychiatric: flat affect Lymph, Heme, Immunologic: no cervical LAD ICD10 Worksheet Patient Problems: Problems Problem Status Onset Failure to thrive Acute Generalized weakness Acute Parkinson disease Acute Acute encephalopathy Acute Acute right hip pain Acute Anemia Acute Closed right hip fracture Acute Fracture of pubic ramus Acute History of Parkinson's disease Acute Hypoxia Acute Multiple rib fractures Acute Pneumothorax, right Acute Radial styloid fracture Acute
--- NOTE | 2017-07-03 12:04 | NEUROPROG ---
Assessment: I have been asked by Dr. Ceja to consult on this patient regarding his Parkinson disease. The majority of the visit was spent in coordination of care and records review. 50 mins in total direct patient care activities on the floor. Mr. Brennan has a background of idiopathic Parkinson disease, neurogenic orthostatic hypotension, PD dementia with behavioral disturbances. He is under the care of movement disorders specialist Kathe Portillo MD a the [facility]. Mr. Brennan was taken to our ED by his on 07/02 out of concern for failure to thrive. Notes indicate he has not been eating well and he has not been sleeping well. After transport to the ED, his left for a trip, and she was not able to be reached. His son has been in touch with the primary team, and he care's for the patient occasionally when patient's is not able to do so. I visited with Mr. Brennan 4 hours after his last Sinemet/entacapone dosing. A focused exam shows Mr. Brennan to be disoriented to date, place, but knows he is here due to concerns of his eating and sleeping. He is hypomimetic and bradyphrenic. His speech is articulate, but hypophonic and bradykinetic. He has full ocular motility, but smooth pursuits have saccadic intrusions - no square wave jerks on primary gaze. VFF, PERRLA, face symmetric, facial sensation preserved, palatoglossal movements intact. He appears cachectic, with globally reduced muscle bulk. Tone in the extremities is normal. No adventitial movements noted. Courtney are symmetrically bradykinetic at -1-2. He has full power throughout. Sensation to LT/PP is preserved without extinction. He is activating, so could not assess DTRs, but plantars are down. He is able to make bicycling movements with his legs in bed. No ataxia. Gait exam deferred to PT safety eval. Review of Dr. Portillo's last note from 06/26 indicates she has been working on reducing his medication burden due to concerns of polypharmacy. His current prescribed regimen is as follows: Sinemet CR 50/200 1 tab QID Entacapone 200mg 1 tab QID with Sinemet Effexor 37.5mg daily (weaning to discontinuation in progress) Trazodone 75mg 1.5 tab QHS Nuplazid 17mg 1 tab BID (this has replaced Seroquel) Midodrine 5mg 1 tab TID Aricept 5mg 2 tab daily It seems there is some discordance between what is recommended by his movement disorders specialist and what is actually being taken at home. I certainly agree with polypharmacy being an issue, with multiple psychoactive/sedating/ disinhibiting drugs on board that could cause paradoxical response in someone with dementia/neurodegeneration. No metabolic issue has been identified by the primary team that could be resulting in his sleep/appetite disturbance. From a movement disorders/neurodegenerative standpoint, would agree with continuing the regimen outlined by Dr. Portillo. Would perhaps readdress his clonazepam, zolpidem and baclofen use at night, as this may be contributing to some sleep/behavioral problems. However,this should be done as an outpatient. I don't see any need for changes from an emergent/urgent inpatient standpoint. I would recommend continued followup with his movement disorders specialist. Recommend PT/OT/LOG CARRIER OPERATOR evaluations moreso to develop a safe disposition for him - unsure if he is able to remain safe at home, and it sounds like he may need more supervised medication administration given the discordance between what he has been taking and what is recommended. Nutrition consultation would be of benefit given his appetite/failure to thrive. Will sign off. Please recall PRN. Objective: Vital Signs Temp Pulse Resp BP Pulse Ox 36.1 C 70 16 102/54 L 93 07/03/17 11:33 07/03/17 11:33 07/03/17 11:33 07/03/17 11:33 07/03/17 11:33 Laboratory Results 07/02/17 04:44 07/03/17 05:09 07/02/17 07/03/17 07/04/17 05:59 05:59 05:59 Intake Total 1450 2785 75 Output Total 0 2300 700 Balance 1450 485 -625 PT 14.0 SEC (12.0-15.0) 07/01/17 21:35 INR 1.09 (0.83-1.16) 07/01/17 21:35 Allergies/Adverse Reactions: morphine Allergy (Verified 07/01/17 21:53)
--- NOTE | 2017-07-03 15:08 | ASMTCMCOM ---
CM Note CM Note Notes: Pt has hx of parkinson's and parkinson's dementia. Pt's is out of town and his son has been providing care. Ateempted to call son to get an understanding of home situation but son's mailbox is full. MD and OT/PT all recommedning SNF. Pt was at [facility] and DC'd to [facility] in March. Met with pt to discuss DC plans. Pt stated he did not want to go back to a SNF. Pt unable to tell C/M how much help he has been getting at home other than that his son cares for him but his sone just got a new job. Pt did state that his would be back on Thursday. Faxed a referral to [facility] who has a room if pt chooses to go there at [place]. C/M will continue to follow. Date Signed: 07/03/2017 03:08 PM Electronically Signed By:Monik Mejia LCSW
--- NOTE | 2017-07-03 15:08 | ASMTCMCOM ---
CM Note CM Note Notes: Pt has hx of parkinson's and parkinson's dementia. Pt's is out of town and his son has been providing care. Ateempted to call son to get an understanding of home situation but son's mailbox is full. MD and OT/PT all recommedning SNF. Pt was at [facility] and DC'd to [facility] in March. Met with pt to discuss DC plans. Pt stated he did not want to go back to a SNF. Pt unable to tell C/M how much help he has been getting at home other than that his son cares for him but his sone just got a new job. Pt did state that his would be back on Thursday. Fax[facility] a referral to [facility] who has a room if pt chooses to go there at [place]. C/M will continue to follow. Date Signed: 07/03/2017 03:08 PM Electronically Signed By:Monik Mejia LCSW
--- NOTE | 2017-07-03 15:08 | ASMTCMCOM ---
CM Note CM Note Notes: Pt has hx of parkinson's and parkinson's dementia. Pt's is out of town and his son has been providing care. Ateempted to call son to get an understanding of home situation but son's mailbox is full. MD and OT/PT all recommedning SNF. Pt was at [facility] and DC'd to [facility] in March. Met with pt to discuss DC plans. Pt stated he did not want to go back to a SNF. Pt unable to tell C/M how much help he has been getting at home other than that his son cares for him but his sone just got a new job. Pt did state that his would be back on Thursday. Faxed a referral to [facility] who has a room if pt chooses to go there at [place]. C/M will continue to follow. Date Signed: 07/03/2017 03:08 PM Electronically Signed By:Monik Mejia LCSW
[2017-07-03] MEDS: QUEtiapine FUMARATE 25 MG TAB PO SCH (21:49)
[2017-07-03] MEDS: clonazePAM 0.5 MG TAB PO SCH (21:49)
[2017-07-03] MEDS: GABAPENTIN 100 MG CAP PO SCH (21:49)
[2017-07-04] MEDS: ENTACAPONE 200 MG TAB PO SCH ×5 (05:19→22:41)
[2017-07-04] MEDS: CARBIDOPA/LEVO CR 50 MG/200 MG TAB PO SCH ×5 (05:19→22:41)
[2017-07-04] MEDS: DICLOFENAC SODIUM 1% 100 GM GEL TP SCH ×4 (05:20→21:09)
[2017-07-04] MEDS: NS 1,000 ML IV SCH (05:24)
[2017-07-04] MEDS: NAPROXEN SODIUM 220 MG TAB PO SCH ×2 (09:12→19:28)
[2017-07-04] MEDS: VENLAFAXINE XR 75 MG CAP PO SCH (09:13)
[2017-07-04] MEDS: MIDODRINE HCL 5 MG TAB PO SCH ×3 (09:13→22:41)
[2017-07-04] MEDS: CYANO/VITAMIN B12 1000 MCG TAB PO SCH (09:13)
[2017-07-04] MEDS: PANTOPRAZOLE SODIUM 40 MG TAB PO SCH (09:13)
[2017-07-04] MEDS: POLYETHYLENE GLYCOL 3350 17 GM PKT PO SCH (09:14)
[2017-07-04] MEDS: ENOXAPARIN 40 MG/0.4 ML SYR SC SCH (09:14)
--- NOTE | 2017-07-04 13:56 | HOSPPROG ---
Hospitalist Progress Note Assessment/Plan: # generalized weakness - failure to thrive at home. Looking at SNF placement. Reviewed with patient today. # Advanced Parkinson disease with dementia- I appreciate neurologist input. No changes at present. Will plan on continuing follow up with Dr. Portillo. # Severe protein calorie malnutrition - pt appears cachectic on examination - 5Kg weight loss since visit in March 2017 - dietary consultation # depression - continue Effexor. # chronic pain - continue gabapentin, ibuprofen, Voltaren topical # hypotension - continue midodrine prn if indicated. # FEN - regular diet - nourishment and dietary consult # DVT proph - Lovenox # dispo - looking at SNF options. Subjective: No acute complaints. He would like to get back to his home. I reviewed with him and his friend at the bedside that PT and OT have recommended SNF stay at least initially prior to returning home. No nausea or vomiting. Objective: Vital Signs Temp Pulse Resp BP Pulse Ox 36.8 C 58 L 18 145/86 H 94 07/04/17 08:23 07/04/17 08:23 07/04/17 08:23 07/04/17 08:23 07/04/17 08:23 Laboratory Results 07/02/17 04:44 07/03/17 05:09 07/03/17 07/04/17 07/05/17 05:59 05:59 05:59 Intake Total 2785 2340 Output Total 2300 1250 1050 Balance 485 1090 -1050 PT 14.0 SEC (12.0-15.0) 07/01/17 21:35 INR 1.09 (0.83-1.16) 07/01/17 21:35 - Physical Exam Constitutional: no apparent distress, appears nourished, not in pain Cardiovascular: regular rate and rhythym, no murmur, rub, or gallop, No edema Respiratory: no respiratory distress, no rales or rhonchi, clear to auscultation Gastrointestinal: normoactive bowel sounds, soft, non-tender abdomen, no palpable masses Genitourinary: No beckham in urethra Musculoskeletal: other (parkinson's tremor active.) ICD10 Worksheet Patient Problems: Problems Problem Status Onset Failure to thrive Acute Generalized weakness Acute Parkinson disease Acute Acute encephalopathy Acute Acute right hip pain Acute Anemia Acute Closed right hip fracture Acute Fracture of pubic ramus Acute History of Parkinson's disease Acute Hypoxia Acute Multiple rib fractures Acute Pneumothorax, right Acute Radial styloid fracture Acute
--- NOTE | 2017-07-04 14:40 | ASMTCMCOM ---
CM Note CM Note Notes: Spoke with patients spouse Marlene as well as his son Almas regarding discharge for this patient. Marlene indicated that she had previously promised her that she would not sent him to a skillled nursing facility again. She said patient has been to both [facility] in [place] and [facility]. She said her felt very isolated and alone. She said they currently have a Physical therapist coming in to the home twice per week. and she feels this is enough for him. She is concerned that he will decline if he is away from home. She was informed that both PT andf OT were recommending SNF. She made it clear they are refusing SNF. Dr. Hutchins notified. Son notifed that patient may discharge on Thursday and requested son to call in the morning to confirm discharge. Case Management will follow. Date Signed: 07/04/2017 02:39 PM Electronically Signed By:SANDRA Nettles
--- NOTE | 2017-07-04 14:40 | ASMTCMCOM ---
CM Note CM Note Notes: Spoke with patients spouse Marlene as well as his son Almas regarding discharge for this patient. Marlene indicated that she had previously promised her that she would not sent him to a skillled nursing facility again. She said patient has been to both [facility] in [place] and [facility]. She said her felt very isolated and alone. She said they currently have a Physical therapist coming in to the home twice per week. and she feels this is enough for him. She is concerned that he will decline if he is away from home. She was informed that both PT andf OT were recommending SNF. She made it clear they are refusing SNF. Dr. Hutchins notified. Son notifed that patient may discharge on Thursday and requested son to call in the morning to confirm discharge. Case Management will follow. Date Signed: 07/04/2017 02:39 PM Electronically Signed By:SANDRA Nettles
--- NOTE | 2017-07-04 14:40 | ASMTCMCOM ---
CM Note CM Note Notes: Spoke with patients spouse Marlene as well as his son Almas regarding discharge for this patient. Marlene indicated that she had previously promised her that she would not sent him to a skillled nursing facility again. She said patient has been to both [facility] in [place] and [facility]. She said her felt very isolated and alone. She said they currently have a Physical therapist coming in to the home twice per week. and she feels this is enough for him. She is concerned that he will decline if he is away from home. She was informed that both PT andf OT were recommending SNF. She made it clear they are refusing SNF. Dr. Hutchins notified. Son notifed that patient may discharge on Thursday and requested son to call in the morning to confirm discharge. Case Management will follow. Date Signed: 07/04/2017 02:39 PM Electronically Signed By:SANDRA Nettles
[2017-07-04 19:58] VITALS: O2SAT 93
[2017-07-04] MEDS: GABAPENTIN 100 MG CAP PO SCH (21:03)
[2017-07-04] MEDS: clonazePAM 0.5 MG TAB PO SCH (21:03)
[2017-07-04] MEDS: QUEtiapine FUMARATE 25 MG TAB PO SCH (21:03)
[2017-07-05] MEDS ORDERED: hydrALAZINE 20 MG/ML VIAL IVP PRN (01:57)
[2017-07-05 05:42] LABS: PLATELET COUNT 224 10^3/uL (150-400)
[2017-07-05] MEDS: ENTACAPONE 200 MG TAB PO SCH ×4 (06:10→16:58)
[2017-07-05] MEDS: CARBIDOPA/LEVO CR 50 MG/200 MG TAB PO SCH ×4 (06:10→16:58)
[2017-07-05] MEDS: DICLOFENAC SODIUM 1% 100 GM GEL TP SCH ×3 (06:11→16:58)
[2017-07-05] MEDS: CYANO/VITAMIN B12 1000 MCG TAB PO SCH (09:06)
[2017-07-05] MEDS: NAPROXEN SODIUM 220 MG TAB PO SCH ×2 (09:06→16:57)
[2017-07-05] MEDS: MIDODRINE HCL 5 MG TAB PO SCH ×2 (09:07→16:58)
[2017-07-05] MEDS: PANTOPRAZOLE SODIUM 40 MG TAB PO SCH (09:07)
[2017-07-05] MEDS: VENLAFAXINE XR 75 MG CAP PO SCH (09:07)
[2017-07-05] MEDS: ENOXAPARIN 40 MG/0.4 ML SYR SC SCH (09:08)
[2017-07-05] MEDS: POLYETHYLENE GLYCOL 3350 17 GM PKT PO SCH (09:10)
--- NOTE | 2017-07-05 12:38 | PDIAF ---
- Diagnosis Diagnosis: Parkinson's Disease - Medication Management Discharge Medications: Medications to Continue on Transfer Baclofen [Baclofen 10 mg (*)] 10 - 20 mg PO HS 12/16/14 [Last Taken 12/25/16] Carbidopa/Levo Cr 50/200Mg [SINEMET CR 50/200 MG (*)] 1 tab PO 5XD 12/16/14 [ Last Taken 12/26/16 12:00] Entacapone [Comtan] 200 mg PO 5XD 12/16/14 [Last Taken 12/26/16 12:00] QUEtiapine FUMARATE [Seroquel 25 mg (*)] 25 mg PO HS 12/26/16 [Last Taken ] Gabapentin [Neurontin 100 MG (*)] 100 - 600 mg PO HS 12/27/16 [Last Taken ] traZODone [traZODONE 50MG (*)] 75 - 100 mg PO HS PRN 12/27/16 [Last Taken ] Midodrine HCl [Proamatine/Midodrin] 5 mg PO TID 12/29/16 [Last Taken Unknown] Diclofenac Sodium 1% [Voltaren Gel (*)] 1 jd TP QID 07/01/17 [Last Taken Unknown] Naproxen Sodium [Naprelan] 500 mg PO BIDMEAL 07/01/17 [Last Taken Unknown] Pantoprazole Sodium [Protonix 40mg (*)] 40 mg PO DAILY 07/01/17 [Last Taken Unknown] Cyanocobalamin [Vitamin B12 (*)] 2,000 mcg PO DAILY 07/02/17 [Last Taken Unknown ] Lidocaine/Prilocaine [Emla Cream] 1 jd TP AD 07/02/17 [Last Taken Unknown] Polyethylene Glycol 3350 [Miralax 17 gm (*)] 17 gm PO DAILY 07/02/17 [Last Taken Unknown] Sennosides/Docusate Sodium [Senna-S Tablet] 1 each PO DAILY PRN 07/02/17 [Last Taken Unknown] Venlafaxine Xr [Effexor Xr 75MG (*)] 75 mg PO DAILY 07/02/17 [Last Taken Unknown ] clonazePAM [Klonopin (*)] 0.5 mg PO HS 07/02/17 [Last Taken Unknown] Discharge Medications: Refer to the Discharge Home Medication list for PRN reason. - Orders Services needed: Home Care (Resume orders in place prior to hospital admission.) Home Care Face to Face: I certify that this patient was under my care and that I had the required [id number] encounter meeting the encounter requirements on the discharge day. My findings support the fact that the patient is homebound as defined in Home Care Face to Face Continued: CMS Chapter 7 Medicare Benefits Manual 30.1.1 , The condition of the patient is such that there exists a normal inability to leave home and consequently, leaving home would require a considerable and taxing effort. Diet Recommendation: no restrictions on diet Diet Texture: Regular Texture Diet - Follow Up Care Current Providers and Referrals: Patient,NotPresent [Unknown] - As per Instructions Varsha Rea MD [Primary Care Provider] -
--- NOTE | 2017-07-05 14:12 | GDS ---
[f rep st] DISCHARGE SUMMARY PERMANENT CARE PROVIDER: Dr. Varsha Rea. IN HOSPITAL CONSULTANTS: Include Dr. Portillo, neurology. DISCHARGE DIAGNOSIS: Weakness. HISTORY OF PRESENT ILLNESS: The patient is a 71-year-old gentleman with a past medical history of Pa rkinson disease and Parkinson's dementia, who had presented to the [facility] emergency room on , with generalized weakness and worsening mobility. He had a low oral intake over the past d ays prior to coming to the hospital. His workup in the hospital was negative for any infectious or m etabolic process. He had a negative troponin as well. It was uncertain, if possibly he had fallen o ff the course of his prescribed Parkinson's disease medications. Nonetheless, he did seem to do well in the hospital and progressed favorably. Neurology did consult on his case, and no medication beckwith es were recommended, and continued follow up with his neurologist was recommended. He is currently f ollowed by Dr. Portillo. I reviewed the case with case management, and we did make contact with the [facility] , who at the current was actually in [place]. We brought up the issue of rehab placement or senior care home placement, however, they have done this in the past and their preference at this point in time would be to return back to home. It sounds like they have made adjustments to the house to facilitate him being at home. I did also talk this morning with his son, Almas, and he as well felt comfortable with the plan to discharge him back to home. HOSPITAL COURSE BY PROBLEM: 1. Generalized weakness. He seemed to be doing reasonably well here in the hospital with PT and OT. Unsure of the acute onset of the weakness at home. We will plan on discharging him back to home to day, per wishes of family, and resuming home nursing as previously was in place. 2. Parkinson disease with dementia. I appreciate neurology's consultation during this hospitalizati on. No changes were made with current medical regimen. The recommendation is for continued follow u p with Dr. Portillo, who knows his case the best. 3. Depression. The patient was continued on Effexor. 4. Chronic pain. The patient was continued on gabapentin and topical Voltaren. 5. Hypotension. The patient is on Midodrine 3 times a day. EXAM ON DAY OF DISCHARGE: VITAL SIGNS: Temperature 36.3, blood pressure 126/85, heart rate is 73, r espirations 18, satting 93% on room air. GENERAL: The patient resting comfortably in a chair at the bedside. No acute distress. HEART: Regular. No murmurs appreciated. LUNGS: Clear on auscultati on with normal respiratory effort. ABDOMEN: Soft, nontender, nondistended. : Condom catheter is in place and is attached to Reed, with clear yellow urine. EXTREMITIES: No significant pitting ed yuly. MUSCULOSKELETAL: No calf pain with palpation. SKIN: No concerning skin rashes visualized. NOTABLE STUDIES: White blood cell count 4, hemoglobin 13.2, platelets 224. Sodium 141, potassium 4. 2, chloride 103, bicarb 26, BUN 15, creatinine 0.8, glucose of 80. Urinalysis had negative nitrite, negative leukocyte esterase. TSH is 3.2. Chest x-ray: No evidence of acute cardiopulmonary abnormality. DISCHARGE MEDICATIONS: 1. Sinemet CR 50/200 mg 1 tab 5 times per day. 2. Comtan 200 mg 5 times a day. 3. Baclofen 10 to 20 mg nightly. 4. Seroquel 25 mg nightly. 5. Trazodone 75 to 100 mg nightly as needed. 6. Gabapentin 100 to 600 mg nightly. 7. Midodrine 5 mg 3 times a day. 8. Protonix 40 mg daily. 9. Naproxen 500 mg twice a day with meals. 10. Diclofenac 1% gel one application 4 times a day. 11. Clonazepam 0.5 mg nightly. 12. Vitamin B12 200 mcg daily. 13. MiraLAX 17 g daily. 14. Effexor XR 75 mg daily. 15. cream one application. 16. Senna S 1 tablet daily as needed for constipation. DISCHARGE INSTRUCTIONS: I recommend keeping follow up with Dr. Portillo, with neurology, as previously s yolanda, as well as with Dr. Varsha Rea, internal medicine. Thirty five minutes of time dedicated to discharge efforts. Copy requested to: Dr. Portillo /[id number]/MODL
--- NOTE | 2017-07-05 15:36 | ASMTCMCOM ---
CM Note CM Note Notes: 07/05/2017 Case Management Note Met w/pt and family friend. Pt continues to refuse SNF. out of town. Spoke w/son who contacted Mom to reach Case Management. Son to clam picker pt and remain with pt round the clock until returns from trip. Spoke w/ Monica [phone]. requested referral to [facility] home care. [facility] accepted pt. Case management requested all services. [facility] also accepted pt and [facility] accepted patient. Family chose [facility]. Informed Monica of safety concerns at d/c for pt and that home care shares same concerns and will make a home safety eval when assessing the patient. again refused SNF rehab. Notified RN of plans. Faxed final documents to [facility]. RN to call report. Date Signed: 07/05/2017 03:35 PM Electronically Signed By:Mckayla Benavides RN
--- NOTE | 2017-07-05 15:36 | ASMTCMCOM ---
CM Note CM Note Notes: 07/05/2017 Case Management Note Met w/pt and family friend. Pt continues to refuse SNF. out of town. Spoke w/son who contacted Mom to reach Case Management. Son to waste picker pt and remain with pt round the clock until returns from trip. Spoke w/ Monica [phone]. requested referral to [facility] home care. [facility] accepted pt. Case management requested all services. [facility] also accepted pt and [facility] care accepted patient. Family chose [facility]. Informed Monica of safety concerns at d/c for pt and that home care shares same concerns and will make a home safety eval when assessing the patient. again refused SNF rehab. Notified RN of plans. Faxed final documents to [facility]. RN to call report. Date Signed: 07/05/2017 03:35 PM Electronically Signed By:Mckayla Benavides RN
--- NOTE | 2017-07-05 15:36 | ASMTCMCOM ---
CM Note CM Note Notes: 07/05/2017 Case Management Note Met w/pt and family friend. Pt continues to refuse SNF. out of town. Spoke w/son who contacted Mom to reach Case Management. Son to brick picker pt and remain with pt round the clock until returns from trip. Spoke w/ Monica [phone]. requested referral to [facility] home care. [facility] accepted pt. Case management requested all services. [facility] also accepted pt and [facility] accepted patient. Family chose [facility]. Informed Monica of safety concerns at d/c for pt and that home care shares same concerns and will make a home safety eval when assessing the patient. again refused SNF rehab. Notified RN of plans. Faxed final documents to [facility]. RN to call report. Date Signed: 07/05/2017 03:35 PM Electronically Signed By:Mckayla Benavides RN
[2017-07-05 15:54] VITALS: BP 142/93; PULSE 76; RESP 16; TEMP 98.4
--- NOTE | 2017-07-05 18:37 | ASDISCHSUM ---
Discharge Information Plan Status:Home with Home Health Medically Cleared to Leave:07/05/2017 Discharge Date:07/05/2017 05:48 PM CM D/C Disposition:Home Health Service ADT D/C Disposition:Home, Routine, Self-Care Projected Discharge Date:07/05/2017 11:00 AM Transportation at D/C:Family Discharge Delay Reason: Follow-Up Date:07/05/2017 11:00 AM Discharge Slot:2 - 12:01 pm - 18:00 pm Final Diagnosis:Generalized weakness, Parkinson's dx w/ dementia, depression, chronic pain, hypotens ion Placement Information Referral Type:*Jail/SNF Referral ID:[id number] Provider Name: Address 1: Phone Number: Address 2: Fax Number: City: Selection Factors: State: Referral Type:*Home Health Care Services Referral ID:[id number] [facility] [address] [facility] [address] Address 2: [facility]:[place] Selection Factors: [place] Patient Contact Information Contact Name:RONAN Relationship: Address:[address] [place] [address] City:[facility] Phone: State/Zip Code:[place] [address] Email: Financial Information Financial Class: Primary Plan Desc:MEDICARE IP PART B ONLY Primary Plan Number:[id number] Secondary Plan Desc:ASHLEY LAGUNA PPO Secondary Plan Number:[id number] Assessment Information [facility] CM Progress Note CM Note CM Note Notes: Pt with hx of parkinson's disease and dementia admitted with weakness and failute to thrive. Per H&P, pt is requiring increasing care at home. At pt's last admission in Mar he DC'd to [facility]. C/M will discuss DC plan with pt's Marlene in the morning. Date Signed: 07/02/2017 05:15 PM Electronically Signed By:Monik Mejia LCSW [facility] Progress Note CM Note CM Note Notes: Pt has hx of parkinson's and parkinson's dementia. Pt's is out of town and his son has been providing care. Ateempted to call son to get an understanding of home situation but son's mailbox is full. MD and OT/PT all recommedning SNF. Pt was at [facility] and KS'd to [facility] in March. Met with pt to discuss DC plans. Pt stated he did not want to go back to a SNF. Pt unable to tell C/M how much help he has been getting at home other than that his son cares for him but his sone just got a new job. Pt did state that his would be back on Thursday. Faxed a referral to [facility] who has a room if pt chooses to go there at [place]. C/M will continue to follow. Date Signed: 07/03/2017 03:08 PM Electronically Signed By:Monik Mejia LCSW [facility] RON Progress Note CM Note CM Note Notes: Spoke with patients spouse Marlene as well as his son Almas regarding discharge for this patient. Marlene indicated that she had previously promised her that she would not sent him to a skillled nursing facility again. She said patient has been to both [facility] in [place] and [facility]. She said her felt very isolated and alone. She said they currently have a Physical therapist coming in to the home twice per week. and she feels this is enough for him. She is concerned that he will decline if he is away from home. She was informed that both PT andf OT were recommending SNF. She made it clear they are refusing SNF. Dr. Hutchins notified. Son notifed that patient may discharge on Thursday and requested son to call in the morning to confirm discharge. Case Management will follow. Date Signed: 07/04/2017 02:39 PM Electronically Signed By:SANDRA Nettles [facility] Progress Note CM Note CM Note Notes: 07/05/2017 Case Management Note Met w/pt and family friend. Pt continues to refuse SNF. out of town. Spoke w/son who contacted Mom to reach Case Management. Son to district plant supervisor pt and remain with pt round the clock until returns from trip. Spoke w/ Marlene [phone]. requested referral to [facility] home care. [facility] accepted pt. Case management requested all services. [facility] also accepted pt and [facility] accepted patient. Family chose [facility]. Informed Marlene of safety concerns at d/c for pt and that home care shares same concerns and will make a home safety eval when assessing the patient. again refused SNF rehab. Notified RN of plans. Faxed final documents to [facility]. RN to call report. Date Signed: 07/05/2017 03:35 PM Electronically Signed By:Mckayla Benavides RN Intervention Information
--- NOTE | 2017-07-05 18:37 | ASDISCHSUM ---
Discharge Information Plan Status:Home with Home Health Medically Cleared to Leave:07/05/2017 Discharge Date:07/05/2017 05:48 PM CM D/C Disposition:Home Health Service ADT D/C Disposition:Home, Routine, Self-Care Projected Discharge Date:07/05/2017 11:00 AM Transportation at D/C:Family Discharge Delay Reason: Follow-Up Date:07/05/2017 11:00 AM Discharge Slot:2 - 12:01 pm - 18:00 pm Final Diagnosis:Generalized weakness, Parkinson's dx w/ dementia, depression, chronic pain, hypotens ion Placement Information Referral Type:*Alf/SNF Referral ID:[id number] Provider Name: Address 1: Phone Number: Address 2: Fax Number: City: Selection Factors: State: Referral Type:*Home Health Care Services Referral ID:[facility]-[id number] Provider Name:[facility] [address] 1[address] [address] Address 2: [facility]:[place] Selection Factors: [place] Patient Contact Information Contact Name:RONAN Relationship: Address:[address] [place] [address] City:[facility] Phone: State/Zip Code:[place] [address] Email: Financial Information Financial Class: Primary Plan Desc:MEDICARE IP PART B ONLY Primary Plan Number:[id number] Secondary Plan Desc:ASHLEY LAGUNA PPO Secondary Plan Number:[id number] Assessment Information [facility] CM Progress Note CM Note CM Note Notes: Pt with hx of parkinson's disease and dementia admitted with weakness and failute to thrive. Per H&P, pt is requiring increasing care at home. At pt's last admission in Mar he DC'd to [facility]. C/M will discuss DC plan with pt's Marlene in the morning. Date Signed: 07/02/2017 05:15 PM Electronically Signed By:Monik Mejia LCSW [facility] Progress Note CM Note CM Note Notes: Pt has hx of parkinson's and parkinson's dementia. Pt's is out of town and his son has been providing care. Ateempted to call son to get an understanding of home situation but son's mailbox is full. MD and OT/PT all recommedning SNF. Pt was at [facility] and SC'd to [facility] in March. Met with pt to discuss DC plans. Pt stated he did not want to go back to a SNF. Pt unable to tell C/M how much help he has been getting at home other than that his son cares for him but his sone just got a new job. Pt did state that his would be back on Thursday. Faxed a referral to [facility] who has a room if pt chooses to go there [place]. C/M will continue to follow. Date Signed: 07/03/2017 03:08 PM Electronically Signed By:Monik Mejia LCSW [facility] Progress Note CM Note CM Note Notes: Spoke with patients spouse Marlene as well as his son Almas regarding discharge for this patient. Marlene indicated that she had previously promised her that she would not sent him to a skillled nursing facility again. She said patient has been to both [facility] in [place] and [facility]. She said her felt very isolated and alone. She said they currently have a Physical therapist coming in to the home twice per week. and she feels this is enough for him. She is concerned that he will decline if he is away from home. She was informed that both PT andf OT were recommending SNF. She made it clear they are refusing SNF. Dr. Hutchins notified. Son notifed that patient may discharge on Thursday and requested son to call in the morning to confirm discharge. Case Management will follow. Date Signed: 07/04/2017 02:39 PM Electronically Signed By:SANDRA Nettles [facility] Progress Note CM Note CM Note Notes: 07/05/2017 Case Management Note Met w/pt and family friend. Pt continues to refuse SNF. out of town. Spoke w/son who contacted Mom to reach Case Management. Son to garbage pick up worker pt and remain with pt round the clock until returns from trip. Spoke w/ Marlene [phone]. requested referral to [facility] home care. [facility] accepted pt. Case management requested all services. [facility] also accepted pt and [facility] accepted patient. Family chose [facility]. Informed Marlene of safety concerns at d/c for pt and that home care shares same concerns and will make a home safety eval when assessing the patient. again refused SNF rehab. Notified RN of plans. Faxed final documents to [facility]. RN to call report. Date Signed: 07/05/2017 03:35 PM Electronically Signed By:Mckayla Benavides RN Intervention Information
--- NOTE | 2017-07-05 18:37 | ASDISCHSUM ---
Discharge Information Plan Status:Home with Home Health Medically Cleared to Leave:07/05/2017 Discharge Date:07/05/2017 05:48 PM CM D/C Disposition:Home Health Service ADT D/C Disposition:Home, Routine, Self-Care Projected Discharge Date:07/05/2017 11:00 AM Transportation at D/C:Family Discharge Delay Reason: Follow-Up Date:07/05/2017 11:00 AM Discharge Slot:2 - 12:01 pm - 18:00 pm Final Diagnosis:Generalized weakness, Parkinson's dx w/ dementia, depression, chronic pain, hypotens ion Placement Information Referral Type:*Custodial/SNF Referral ID:[id number] Provider Name: Address 1: Phone Number: Address 2: Fax Number: City: Selection Factors: State: Referral Type:*Home Health Care Services Referral ID:[facility]-[id number] Provider Name:[facility] Address 1[address] [address] Address 2: [facility]:[place] Selection Factors: [place] Patient Contact Information Contact Name:RONAN Relationship: Address:[address] [place] [address] City:[facility] Phone: State/Zip Code:[place] [address] Email: Financial Information Financial Class: Primary Plan Desc:MEDICARE IP PART B ONLY Primary Plan Number:[id number] Secondary Plan Desc:ASHLEY LAGUNA PPO Secondary Plan Number:[id number] Assessment Information [facility] CM Progress Note CM Note CM Note Notes: Pt with hx of parkinson's disease and dementia admitted with weakness and failute to thrive. Per H&P, pt is requiring increasing care at home. At pt's last admission in Mar he DC'd to [facility]. C/M will discuss DC plan with pt's Marlene in the morning. Date Signed: 07/02/2017 05:15 PM Electronically Signed By:Monik Mejia LCSW [facility] Progress Note CM Note CM Note Notes: Pt has hx of parkinson's and parkinson's dementia. Pt's is out of town and his son has been providing care. Ateempted to call son to get an understanding of home situation but son's mailbox is full. MD and OT/PT all recommedning SNF. Pt was at [facility] and SC'd to [facility] in March. Met with pt to discuss DC plans. Pt stated he did not want to go back to a SNF. Pt unable to tell C/M how much help he has been getting at home other than that his son cares for him but his sone just got a new job. Pt did state that his would be back on Thursday. Faxed a referral to [facility] who has a room if pt chooses to go there [place]. C/M will continue to follow. Date Signed: 07/03/2017 03:08 PM Electronically Signed By:Monik Mejia LCSW [facility] Progress Note CM Note CM Note Notes: Spoke with patients spouse Marlene as well as his son Almas regarding discharge for this patient. Marlene indicated that she had previously promised her that she would not sent him to a skillled nursing facility again. She said patient has been to both [facility] in [place] and [facility]. She said her felt very isolated and alone. She said they currently have a Physical therapist coming in to the home twice per week. and she feels this is enough for him. She is concerned that he will decline if he is away from home. She was informed that both PT andf OT were recommending SNF. She made it clear they are refusing SNF. Dr. Hutchins notified. Son notifed that patient may discharge on Thursday and requested son to call in the morning to confirm discharge. Case Management will follow. Date Signed: 07/04/2017 02:39 PM Electronically Signed By:SANDRA Nettles [facility] Progress Note CM Note CM Note Notes: 07/05/2017 Case Management Note Met w/pt and family friend. Pt continues to refuse SNF. out of town. Spoke w/son who contacted Mom to reach Case Management. Son to chicken picker pt and remain with pt round the clock until returns from trip. Spoke w/ Marlene [phone]. requested referral to [facility] home care. [facility] accepted pt. Case management requested all services. [facility] also accepted pt and [facility] accepted patient. Family chose [facility]. Informed Marlene of safety concerns at d/c for pt and that home care shares same concerns and will make a home safety eval when assessing the patient. again refused SNF rehab. Notified RN of plans. Faxed final documents to [facility]. RN to call report. Date Signed: 07/05/2017 03:35 PM Electronically Signed By:Mckayla Benavides RN Intervention Information
--- NOTE | 2017-07-08 14:56 | PQFORM ---
PHYSICIAN QUERY FORM Needs Your Response This query form is being sent to you to assure this patient record is coded properly. Please respond to the question below: LIDAR SCIENTIST QUESTION: Dear Dr. Hutchins, In reviewing this patient medical chart it was noted the patient had the diagnosis of Severe protein calorie malnutrition. This was stated in the Hospitalist Progress Notes dated 07/02-. Also stated in Dr. Campbell's Medical necessity notes dated 07/02. Patient presented with weakness and decreased oral intake, along with 5Kg weight loss. After study, should the diagnosis of 'Severe protein calorie malnutrition' be included in the Discharge Summary? Yes No Unable to determine Other more appropriate diagnosis Thank you [facility] HIM/Coding Dept. [phone] INSTRUCTIONS FOR RESPONSE: Answer question by clicking on the "Edit Document" button. Move cursor to area below the stars. When complete, hit "Save." Click on the "Sign" button, then click "Sign" again. Type in your PIN and hit "Enter." MTDD
--- NOTE | 2017-07-08 14:56 | PQFORM ---
PHYSICIAN QUERY FORM Needs Your Response This query form is being sent to you to assure this patient record is coded properly. Please respond to the question below: ALTERATION SPECIALIST QUESTION: Dear Dr. Hutchins, In reviewing this patient medical chart it was noted the patient had the diagnosis of Severe protein calorie malnutrition. This was stated in the Hospitalist Progress Notes dated 07/02-. Also stated in Dr. Campbell's Medical necessity notes dated 07/02. Patient presented with weakness and decreased oral intake, along with 5Kg weight loss. After study, should the diagnosis of 'Severe protein calorie malnutrition' be included in the Discharge Summary? Yes No Unable to determine Other more appropriate diagnosis Thank you [facility]/Coding Dept. [phone] INSTRUCTIONS FOR RESPONSE: Answer question by clicking on the "Edit Document" button. Move cursor to area below the stars. When complete, hit "Save." Click on the "Sign" button, then click "Sign" again. Type in your PIN and hit "Enter." MTDD
--- NOTE | 2017-07-08 14:56 | PQFORM ---
PHYSICIAN QUERY FORM Needs Your Response This query form is being sent to you to assure this patient record is coded properly. Please respond to the question below: SHOE POLISHER QUESTION: Dear Dr. Hutchins, In reviewing this patient medical chart it was noted the patient had the diagnosis of Severe protein calorie malnutrition. This was stated in the Hospitalist Progress Notes dated 07/02-. Also stated in Dr. Campbell's Medical necessity notes dated 07/02. Patient presented with weakness and decreased oral intake, along with 5Kg weight loss. After study, should the diagnosis of 'Severe protein calorie malnutrition' be included in the Discharge Summary? Yes No Unable to determine Other more appropriate diagnosis Thank you [facility]/Coding Dept. [phone] INSTRUCTIONS FOR RESPONSE: Answer question by clicking on the "Edit Document" button. Move cursor to area below the stars. When complete, hit "Save." Click on the "Sign" button, then click "Sign" again. Type in your PIN and hit "Enter." MTDD
== END 2017-07-05 17:48 | disposition home or self-care (01) ==
LOC: EDUNIT# → INTOOBSV 22:49 → F1N 07-02
PROVIDERS: ADMIT Family Medicine; ATTEND Family Medicine
DX: R53.1 Weakness (principal); F02.81 Dementia in other diseases classified elsewhere, unspecified severity, with behavioral disturbance; G31.83 Neurocognitive disorder with Lewy bodies; R62.7 Adult failure to thrive; F32.9 Major depressive disorder, single episode, unspecified; G89.29 Other chronic pain; I95.9 Hypotension, unspecified; G47.00 Insomnia, unspecified; Z96.642 Presence of left artificial hip joint
CPT/HCPCS: 71010; 96361; 96374; 97110; 97116; 97161; 97166; 97530; 97535; 99285; G0378; G8978; G8979; G8987; G8988; J1650; J2060

== ENCOUNTER 2018-06-29 16:35 | Inpatient (IN) | payer OTHER ==
[2018-06-29] MEDS ORDERED: NS 1,000 ML IV ONE (17:04)
--- NOTE | 2018-06-29 17:04 | EDPHY ---
H & P Time Seen by Provider: 06/29/18 16:49 HPI/ROS: CHIEF COMPLAINT: Reported femur fracture HISTORY OF PRESENT ILLNESS: Patient is a 72-year-old male who [place] emergency department [place] via [place]. Per EMS the patient was sent to the emergency department because of the femur fracture. Patient sustained a fall 3 days ago. He had bruising over his right leg. He had an outpatient x- ray which confirmed the fracture. Patient has dementia. He is unable to give further history. REVIEW OF SYSTEMS: Unable to obtain review systems due to the patient's dementia Past Medical/Surgical History: Includes dementia, Parkinson's disease, previous hip fracture Smoking Status: Unknown if ever smoked Physical Exam: Vitals noted. Patient was reportedly hypotensive EN route was given a fluid bolus and he is now normal tensive GENERAL: Well-appearing, in no acute distress, alert. HEENT: Eyes normal to inspection, normal pharynx, no signs of dehydration. NECK: Normal, supple. RESPIRATORY: Clear to auscultation bilaterally, no rales, rhonchi or wheezing. CVS: Regular rate and rhythm, no rubs, murmurs, or gallops. ABDOMEN: Soft, nontender, nondistended, no organomegaly. BACK: Normal to inspection, no CVA tenderness. SKIN: Normal color, no rash, warm, dry. No pallor. EXTREMITIES: Patient has bruising over his right anterior thigh. There is no significant tenderness to palpation. His right lower extremity is slightly shortened compared to the left. Patient has swelling of both knees did appear to be arthritic. There is no redness or warmth. No pedal edema, no calf tenderness, no Homans sign or cords, no joint swelling. NEURO/PSYCH: Alert and oriented x1, normal mood and affect, normal motor sensory exam. No obvious cranial nerve deficit. Constitutional: Initial Vital Signs Temperature (C) 36.6 C 06/29/18 16:41 Heart Rate 62 06/29/18 16:41 Respiratory Rate 16 06/29/18 16:41 Blood Pressure 118/67 06/29/18 16:41 O2 Sat (%) 92 06/29/18 16:41 O2 Delivery Mode Room Air Allergies/Adverse Reactions: morphine Allergy (Verified 07/17/17 14:19) Home Medications: Medication Instructions Recorded Baclofen [Baclofen 10 mg (*)] 10 - 20 mg PO HS 12/16/14 Carbidopa/Levo Cr 50/200Mg 1 tab PO 0800,1200,1600,199912/16/14 [SINEMET CR 50/200 MG (*)] Entacapone [Comtan] 200 mg PO 0800,1200,1600,199912/16/14 Midodrine HCl [Proamatine/Midodrin] 5 mg PO 0800,1200,1600 12/29/16 Diclofenac Sodium 1% [Voltaren Gel 1 jd TP QID 07/01/17 (*)] Cyanocobalamin [Vitamin B12 (*)] 2,000 mcg PO DAILY 07/02/17 Donepezil HCl [Aricept 5 MG (*)] 10 mg PO DAILY 07/17/17 Pimavanserin Tartrate [Nuplazid] 34 mg PO HS 07/17/17 Venlafaxine HCl [Venlafaxine HCl 37.5 mg PO DAILY 07/17/17 ER] traZODone [traZODONE 50MG (*)] 75 mg PO HS 07/17/17 Acetaminophen [Tylenol 325mg (*)] 650 mg PO Q4HRS PRN tab 07/22/17 Ibuprofen [Motrin (*)] 400 mg PO Q6HRS PRN tab 07/22/17 Lidocaine 5% [Lidoderm 5% Patch] 1 ea TD DAILY patch 07/22/17 Patch Removal 1 ea TD DAILY21 patch 07/22/17 Polyethylene Glycol 3350 [Miralax 17 gm PO DAILY pkt 07/22/17 17 gm (*)] Sennosides/Docusate Sodium 1 - 2 tab PO BID tab 07/22/17 [Senokot-S] Medical Decision Making - Diagnostics Imaging Results: Imaging Impressions Femur X-Ray 06/29/18 17:04 Impression: Osteoporosis without fracture. Head CT 06/29/18 17:04 Impression: No acute intracranial process. Findings and recommendations discussed with ISH STARR at 1737 hour, . Hip X-Ray 06/29/18 17:04 Impression: Suspect acute right femoral neck and left greater trochanter fractures. ED Course/Re-evaluation: In the emergency department I discussed plan with the patient. I answered his questions. Hip and femur x-ray ordered. Head CT ordered. Laboratory studies and EKG ordered. EKG shows normal sinus rhythm, normal rate, normal axis, prolonged ND, prolonged QT. There are no ST or T-wave abnormalities. Chemistry panel is unremarkable. CBC was rejected. This was re-sent. Coags are normal. Right hip x-ray/x-ray: Patient has a femur shows osteoporosis. Patient has a acute right femoral neck and left greater trochanter fracture Patient's left femur x-ray was added due to the findings on pelvic imaging I discussed case with Dr. Gonzales from the hospitalist service. Patient will admit. I discussed case with from orthopedic surgery. Differential Diagnosis: My differential includes but is not limited to femur fracture, hip fracture, dislocation, pelvic fracture, closed-head injury, subarachnoid hemorrhage, subdural hematoma, epidural hematoma, dementia, electrolyte abnormality, sugar abnormality, fall, spinal injury - Data Points Laboratory Results: Laboratory Results 06/29/18 16:55 06/29/18 16:55 06/29/18 06/29/18 06/29/18 16:55 16:55 16:55 WBC REJ RBC Not Reported Hgb Not Reported Hct Not Reported MCV Not Reported MCH Not Reported MCHC Not Reported RDW Not Reported Plt Count Not Reported MPV Not Reported Neut % (Auto) Not Reported Lymph % (Auto) Not Reported [place] % (Auto) Not Reported Eos % (Auto) Not Reported Baso % (Auto) Not Reported Nucleat RBC Rel Count Not Reported Absolute Neuts (auto) Not Reported Absolute Lymphs (auto) Not Reported Absolute Monos (auto) Not Reported Absolute Eos (auto) Not Reported Absolute Basos (auto) Not Reported Absolute Nucleated RBC Not Reported Immature Gran % Not Reported Immature Gran # Not Reported PT 14.3 SEC SEC (12.0-15.0) INR 1.09 (0.83-1.16) APTT 27.6 SEC SEC (23.0-38.0) Sodium 137 mEq/L mEq/L (135-145) Potassium 4.2 mEq/L mEq/L (3.3-5.0) Chloride 107 mEq/L mEq/L (97-110) Carbon Dioxide 23 mEq/l mEq/l (22-31) Anion Gap 7 mEq/L mEq/L (6-14) BUN 38 mg/dL H mg/dL (7-23) Creatinine 1.0 mg/dL mg/dL (0.7-1.3) Estimated GFR > 60 Glucose 127 mg/dL H mg/dL (70-100) Calcium 8.7 mg/dL mg/dL (8.5-10.4) Medications Given: Discontinued Medications Sodium Chloride (Ns) 1,000 mls @ 0 mls/hr IV ONCE ONE; Wide Open PRN Reason: Protocol Stop: 06/29/18 17:05 Last Admin: 06/29/18 18:08 Dose: 1,000 mls Departure - Departure Disposition: [facility] Acute Clinical Impression: Fracture, femur Qualifiers: Encounter type: initial encounter Femur location: unspecified portion of femur Fracture type: closed Fracture morphology: other fracture Laterality: unspecified laterality Qualified Code(s): S72.8X9A - Other fracture of unspecified femur, initial encounter for closed fracture Condition: Good Referrals: Varsha Rea MD [Primary Care Provider] - As per Instructions
[2018-06-29 17:49] LABS: INR 1.09 (0.83-1.16); PROTIME(PATIENT) 14.3 SEC (12.0-15.0)
[2018-06-29 18:35] LABS: PLATELET COUNT 283 10^3/uL (150-400)
[2018-06-29] MEDS ORDERED: ONDANSETRON 4 MG/2 ML VIAL IVP PRN (19:20)
[2018-06-29] MEDS ORDERED: HYDROmorphONE/DILAUDID 2 MG TAB PO PRN (19:20)
[2018-06-29] MEDS ORDERED: ACETAMINOPHEN 325 MG TAB PO PRN (19:20)
[2018-06-29] MEDS ORDERED: ONDANSETRON DISINTEGRATING 4 MG TAB PO PRN (19:20)
[2018-06-29] MEDS ORDERED: HYDROmorphONE/DILAUDID 1 MG/ML INJ IVP PRN (19:20)
--- NOTE | 2018-06-29 20:14 | PDGENHP ---
History and Physical - Chief Complaint Acute hip pain - History of Present Illness Primary care provider: Dr. Rea Primary orthopedist: Dr. Isreal Hook Primary neurologist: Dr. Valdes HPI: 72-year-old male presenting with acute hip pain located in his lateral right hip characterized as intermittent sharp sensations with associated bruising and swelling with onset of symptoms 2 nights prior after he was found down on the floor by staff at [facility]. The patient is unable to provide any additional history. His reports that the [facility] staff notified her that he had been found down, and that they had helped him back to bed. They also performed an x-ray which initially did not clearly demonstrate any fracture. Over the subsequent 2 days, the patient has had reduced oral intake secondary to pain and discomfort, and his pain and discomfort has been significantly exacerbated by lifting his leg as well as placing weight on it. It should be noted that the patient spends the vast majority of the day in either bed or chair, only getting up to ambulate to the bathroom, with use of walker. He otherwise does not spend any time on his feet. His attempts to spend approximately 12 hr per day with him at [facility], to help advocate for his needs. She reports that he does not routinely require oxycodone for pain management of his chronic pain, but rather utilizes Tylenol fairly regularly. History Information - Allergies/Home Medication List Allergies/Adverse Reactions: morphine Allergy (Verified 07/17/17 14:19) Home Medications: Baclofen [Baclofen 10 mg (*)] 10 - 20 mg PO HS 12/16/14 [Last Taken 12/25/16] Carbidopa/Levo Cr 50/200Mg [SINEMET CR 50/200 MG (*)] 1 tab PO 0800,1200,1600, 199912/16/14 [Last Taken 07/17/17 12:00] Entacapone [Comtan] 200 mg PO 0800,1200,1600,199912/16/14 [Last Taken 12/26/16 12:00] Midodrine HCl [Proamatine/Midodrin] 5 mg PO 0800,1200,1600 12/29/16 [Last Taken 07/17/17 12:00] Diclofenac Sodium 1% [Voltaren Gel (*)] 1 jd TP QID 07/01/17 [Last Taken Unknown] Cyanocobalamin [Vitamin B12 (*)] 2,000 mcg PO DAILY 07/02/17 [Last Taken Unknown ] Donepezil HCl [Aricept 5 MG (*)] 10 mg PO DAILY 07/17/17 [Last Taken 07/17/17 08 :00] Pimavanserin Tartrate [Nuplazid] 34 mg PO HS 07/17/17 [Last Taken 07/16/17] Venlafaxine HCl [Venlafaxine HCl ER] 37.5 mg PO DAILY 07/17/17 [Last Taken 07/17] traZODone [traZODONE 50MG (*)] 75 mg PO HS 07/17/17 [Last Taken Unknown] I have personally reviewed and updated: family history, medical history, social history, surgical history Past Medical History: Parkinson disease, Parkinson dementia, hx pubic rami fracture 03/2017, hx fall and pneumothorax 12/2016. hx right wrist fracture. depression. insomnia with evening agitation. GERD. History of gait instability and recurrent falls, last 1 was in July of 2017 - Surgical History Additional surgical history: bilateral knee resurfacing, bilateral hip replacements - Family History Additional family history: No recent sick family contacts - Social History Smoking Status: Unknown if ever smoked Additional social history: . Lives in [facility] for the past 1 year without any hospitalizations in the interim Review of Systems Review of Systems: ROS: 10pt was reviewed & negative except for what was stated in HPI & below Gastrointestinal: Reports: other (Poor oral intake) Muscolosketal: Reports: other (Right hip pain) Physical Exam Physical Exam: Temp Pulse Resp BP Pulse Ox 36.5 C 65 16 98/64 L 95 06/29/18 19:49 06/29/18 19:49 06/29/18 19:49 06/29/18 19:49 06/29/18 19:49 Constitutional: no apparent distress, chronically ill appearing, uncomfortable, cachectic, No not in pain (Mild right hip) Eyes: anicteric sclera, EOMI, other (Constricted pupils) Ears, Nose, Mouth, Throat: hearing normal, other (Tacky mucous membranes) Cardiovascular: regular rate and rhythym, no murmur, rub, or gallop (Distant heart sounds), No edema Respiratory: no respiratory distress, no rales or rhonchi, clear to auscultation , reduced air movement (Poor inspiratory effort) Gastrointestinal: normoactive bowel sounds, soft, non-tender abdomen, no palpable masses, No distension Skin: other (Soft tissue swelling, very minimal ecchymosis right lateral hip with moderate tenderness to palpation) Musculoskeletal: other (Painful right hip with active and passive flexion of the right lower extremity, not particularly angulated, patient with proximal muscle wasting, visibly bony knees and extremities) Neurologic: sensation intact bilaterally, weakness (Motor strength is 4/5 proximal left lower extremity, 3/5 proximal right lower extremity, 5/5 distal bilateral lower extremities), No AAOx3 (Alert awake oriented x2 to person and place, not time) Psychiatric: not anxious, encephalopathic, flat affect, poor memory, other ( Concentration 0/7, naming 2/3), No agitated Lab Data & Imaging Review 06/29/18 18:00 06/29/18 16:55 WBC 17.81 10^3/uL (3.80-9.50) H 06/29/18 18:00 RBC 3.58 10^6/uL (4.40-6.38) L 06/29/18 18:00 Hgb 11.1 g/dL (13.7-17.5) L 06/29/18 18:00 Hct 33.4 % (40.0-51.0) L 06/29/18 18:00 MCV 93.3 fL (81.5-99.8) 06/29/18 18:00 MCH 31.0 pg (27.9-34.1) 06/29/18 18:00 MCHC 33.2 g/dL (32.4-36.7) 06/29/18 18:00 RDW 13.0 % (11.5-15.2) 06/29/18 18:00 Plt Count 283 10^3/uL (150-400) 06/29/18 18:00 MPV 9.1 fL (8.7-11.7) 06/29/18 18:00 Neut % (Auto) 88.5 % (39.3-74.2) H 06/29/18 18:00 Lymph % (Auto) 4.8 % (15.0-45.0) L 06/29/18 18:00 [place] % (Auto) 5.8 % (4.5-13.0) 06/29/18 18:00 Eos % (Auto) 0.0 % (0.6-7.6) L 06/29/18 18:00 Baso % (Auto) 0.2 % (0.3-1.7) L 06/29/18 18:00 Nucleat RBC Rel Count 0.0 % (0.0-0.2) 06/29/18 18:00 Absolute Neuts (auto) 15.76 10^3/uL (1.70-6.50) H 06/29/18 18:00 Absolute Lymphs (auto) 0.86 10^3/uL (1.00-3.00) L 06/29/18 18:00 Absolute Monos (auto) 1.04 10^3/uL (0.30-0.80) H 06/29/18 18:00 Absolute Eos (auto) 0.00 10^3/uL (0.03-0.40) L 06/29/18 18:00 Absolute Basos (auto) 0.03 10^3/uL (0.02-0.10) 06/29/18 18:00 Absolute Nucleated RBC 0.00 10^3/uL (0-0.01) 06/29/18 18:00 Immature Gran % 0.7 % (0.0-1.1) 06/29/18 18:00 Immature Gran # 0.12 10^3/uL (0.00-0.10) H 06/29/18 18:00 PT 14.3 SEC (12.0-15.0) 06/29/18 16:55 INR 1.09 (0.83-1.16) 06/29/18 16:55 APTT 27.6 SEC (23.0-38.0) 06/29/18 16:55 Sodium 137 mEq/L (135-145) 06/29/18 16:55 Potassium 4.2 mEq/L (3.3-5.0) 06/29/18 16:55 Chloride 107 mEq/L (97-110) 06/29/18 16:55 Carbon Dioxide 23 mEq/l (22-31) 06/29/18 16:55 Anion Gap 7 mEq/L (6-14) 06/29/18 16:55 BUN 38 mg/dL (7-23) H 06/29/18 16:55 Creatinine 1.0 mg/dL (0.7-1.3) 06/29/18 16:55 Estimated GFR > 60 06/29/18 16:55 Glucose 127 mg/dL (70-100) H 06/29/18 16:55 Calcium 8.7 mg/dL (8.5-10.4) 06/29/18 16:55 Visualized and Interpreted imaging results: Yes Interpretation: X-ray demonstrates right femoral neck fracture as well as left greater trochanteric fracture, bilateral hardware in place Visualized and Interpreted EKG results: Yes EKG Interpretation: Positive for: other (Normal sinus rhythm) Assessment & Plan Assessment: 72-year-old male presents with bilateral periprosthetic hip fractures status post mechanical fall complicated by severe Parkinson's disease and dementia Plan: 1. Hip fractures. Acute right femoral neck and acute left greater trochanteric , new problem this provider, further workup indicated. Secondary to traumatic fall, present on admission, occurring on 06/27 p.m. - has requested orthopedic evaluation for conversation as to the risks and benefits of potential surgery, but she is declining consultation from our on- call orthopedist as well as the patient's primary orthopedist for past surgeries -she is requesting consultation from Dr. Sosa, and this will need to be requested tomorrow morning -based on history obtained from the , the patient's performance status at baseline is very limited, with very minimal time spent out of bed or chair, and it will be up to the conversation between Dr. Sosa and the patient's regarding whether the patient would potentially benefit from any surgical intervention at this juncture verses a more palliative approach of pain management for comfort -will make NPO in a.m. with ongoing IV fluids if they do elect for surgical procedure -supportive care with heat pad, ice, Tylenol, as needed Dilaudid for severe pain , reports that the patient has a challenging time manipulating a call light and advocating for himself regarding pain management, and she requests that the patient receive frequent pain reassessments, which I have communicated to the nursing staff the emergency department -although the patient's RCRI score is technically 0, his perioperative risk of complication and postoperative risk of poor healing and recovery with rehab is substantial and a palliative consultation may be helpful in addition to the consultation provided by Dr. Sosa to help determine the next course of action 2. Severe Parkinson's disease with dementia. Patient has chronic encephalopathy and a history of nocturnal behavioral disturbance, will give him melatonin at this time, reinitiate all of his home medications once reconciled -reviewed outside records from [facility], discharge summary from 07/23/2017, indicating the patient was seen at that time for a fall with gait instability and discharged to [facility], where he has been safely residing for the past 1 year -encourage case management to work with the palliative service determine whether palliative services can be received at his memory care unit 3. Autonomic dysfunction with Parkinson's disease. Continue midodrine 4. Leukocytosis. Most likely secondary to acute pain, patient not demonstrating any additional signs of infection with a normal heart rate, afebrile -repeat white blood cell count in a.m., perform infectious evaluation if febrile or white count worsening Diet. Regular site, NPO in a.m. With IV fluids Prophylaxis. High risk patient, SCDs, hold pharm in case he does have Surgery Code. Do not resuscitate per advanced directive, is MD PINK Disposition. Anticipated discharge uncertain this time, anticipated length stay is greater than 48 hr for reasonable medical necessity including acute hip fracture bilaterally requiring surgical evaluation, goals of care discussions with high risk comorbid severe Parkinson's disease and dementia. I have discussed patient's presentation with Dr. Payton Onofre, he and I both agree the patient needs inpatient admission criteria at this time.
--- NOTE | 2018-06-29 20:32 | CPEKG ---
Test Reason : OPEN Blood Pressure : / mmHG Vent. Rate : 061 BPM Atrial Rate : 061 BPM P-R Int : 210 ms QRS Dur : 079 ms QT Int : 580 ms P-R-T Axes : 046 039 075 degrees QTc Int : 585 ms Sinus rhythm Anteroseptal infarct, age indeterminate Prolonged QT interval Confirmed by Payton Onofre ([id number]) on 06/29/2018 8:31:07 PM Referred By: Confirmed By:Payton Onofre
[2018-06-29] MEDS: NS 1,000 ML IV SCH (22:18)
[2018-06-29] MEDS ORDERED: POLYETHYLENE GLYCOL 3350 17 GM PKT PO PRN (23:41)
[2018-06-29] MEDS ORDERED: BISACODYL 10 MG SUPP PR PRN (23:41)
[2018-06-30] MEDS: DULoxetine 20 MG CAP PO SCH ×3 (00:02→21:48)
[2018-06-30] MEDS: MIRTAZAPINE 15 MG TAB PO SCH ×2 (00:02→21:50)
[2018-06-30] MEDS: CARBIDOPA/LEVO CR 50 MG/200 MG TAB PO SCH ×6 (00:02→21:50)
[2018-06-30] MEDS: MIDODRINE HCL 5 MG TAB PO SCH ×5 (00:06→21:49)
[2018-06-30] MEDS: ENTACAPONE 200 MG TAB PO SCH ×6 (00:07→21:50)
[2018-06-30] MEDS ORDERED: HYDROmorphONE/DILAUDID 2 MG/ML INJ IVP PRN (00:41)
[2018-06-30] MEDS: Pimavanserin Tartrate [Nuplazid] 34 MG PO SCH ×2 (00:42→21:50)
[2018-06-30] MEDS: SENNOSIDES/DOCUSATE SODIUM TAB PO SCH ×3 (00:43→21:51)
[2018-06-30] MEDS: oxyCODONE IR 5 MG TAB PO PRN ×2 (02:41→11:52)
[2018-06-30 04:46] LABS: PLATELET COUNT 249 10^3/uL (150-400)
--- NOTE | 2018-06-30 06:19 | GCON ---
Date:06/29/18 REASON FOR CONSULTATION: Bilateral (right greater than left) hip pain. HISTORY OF PRESENT ILLNESS: The patient is a 72-year-old with history of Parkinson's and dementia, who has had a previous left total hip arthroplasty and right hip hemiarthroplasty, who sustained a fall resulting in bilateral hip pain. He by history has right limb length discrepancy, which has not changed following this recent episode. EXAMINATION: He holds his right hip in a slightly flexed position. He has approximately 15 degree knee flexion contracture on the right. He has approximately 2 inch limb length discrepancy. Gentle right hip motion produces pain. He has minimal pain with left hip range of motion. IMAGING: Radiographs of his left hip show evidence of a well-positioned total hip arthroplasty. There is a small "fracture" at the tip of his greater trochanter. Radiographs of his right hip show evidence of a well-positioned right hip hemiarthroplasty. There is a fracture extending across the intertrochanteric region well above the tip of the implant. ASSESSMENT: 1. Right periprosthetic femur fracture. 2. Left "stable" proximal femur fracture. PLAN: It is recommended that nonoperative treatment course be pursued on the left. On the right, there is partial stability afforded by the implant. Ideally, limitation of weightbearing on the right should enable the fracture to heal. If displacement was to occur, the patient would require a revision total hip arthroplasty rather than ORIF of his fracture. It is recommended that the patient be "touchdown weightbearing" as much as his physical and mental status will enable. Followup radiographs in 3 weeks would be recommended to assess fracture position. /[id number]/MODL MTDD
--- NOTE | 2018-06-30 08:42 | ASMTLACE ---
SAM Comorbidities - select Answers: Dementia all that apply History of falls Opioid dependence / Chronic pain Other Notes: Parksinson's disease; GERD # of Emergency department Answers: 1-2 visits in the last 6 months Social determinants Answers: Mental health diagnosis (anxiety, depression, pers onality disorders, etc.) Score: 15 Date Signed: 06/30/2018 08:41 AM Electronically Signed By:Funmi Da Silva
[2018-06-30] MEDS ORDERED: MIDODRINE HCL 5 MG TAB PO SCH (09:00)
[2018-06-30] MEDS: CYANO/VITAMIN B12 1000 MCG TAB PO SCH (09:06)
[2018-06-30] MEDS: ACETAMINOPHEN 500 MG TAB PO SCH ×3 (09:08→21:49)
[2018-06-30] MEDS: DONEPEZIL HCL 5 MG TAB PO SCH (09:09)
--- NOTE | 2018-06-30 09:51 | PDMN ---
Medical Necessity Medical necessity: Pt meets IP criteria per MD; est los >2 mn for eval/tx of bilateral hip fxs s/p mechanical fall; admit for further monitoring, Ortho/ Palliative consults, IVFs, pain management & therapies; comorbid advanced age, parkinsons, dementia; per H&P & order 06/29/18
--- NOTE | 2018-06-30 10:40 | ASMTCMCOM ---
CM Note CM Note Notes: Patient admitted after a fall. He has a new R hip fracture and a history of L GERRY and R hip hemiarthroplasty. A nonsurgical approach has been recommended for the new fracture. Patient has a hx of Parkinson's and dementia. He lives in a memory care unit at [facility]. I spoke with his Monica, and we both anticipate the need for SNF rehab. Patient has been to [facility] in the past, and Monica is ok with a referral to , which I have sent. Case Management will follow. Date Signed: 06/30/2018 10:39 AM Electronically Signed By:Angelita Ziegler RN
--- NOTE | 2018-06-30 10:40 | HOSPPROG ---
Hospitalist Progress Note Assessment/Plan: 1. Hip fractures. - Acute right femoral neck and acute left greater trochanteric - Secondary to traumatic fall, present on admission, occurring on 06/27 p.m. - Seen by Ortho on 06/29, Dr. Johnson, who recommended nonoperative plan - has requested 2nd opinion by Orthopaedics, will consult Dr. Infante this morng - supportive care with heat pad, ice, Tylenol, as needed Dilaudid for severe pain 2. Severe Parkinson's disease with dementia. -Patient has chronic encephalopathy and a history of nocturnal behavioral disturbance, -Reinitiate home medications -encourage case management to work with the palliative service determine whether palliative services can be received at his memory care unit 3. Autonomic dysfunction with Parkinson's disease. - Continue midodrine 4. Leukocytosis. - Most likely secondary to acute pain, patient not demonstrating any additional signs of infection with a normal heart rate, afebrile - Continue to monitor Diet. Regular site, NPO, With IV fluids Prophylaxis. High risk patient, SCDs, hold pharm in case he does have Surgery Code. Do not resuscitate per advanced directive, is MD PINK Disposition. Pending clinical course Subjective: Patient reports no pain this morning, at bedside Objective: Vital Signs Temp Pulse Resp BP Pulse Ox 37.2 C 78 19 102/57 L 87 L 06/30/18 07:43 06/30/18 07:43 06/30/18 07:43 06/30/18 07:43 06/30/18 07:43 Laboratory Results 06/30/18 04:33 06/30/18 04:33 06/29/18 06/30/18 07/01/18 05:59 05:59 05:59 Output Total 150 Balance -150 PT 14.3 SEC (12.0-15.0) 06/29/18 16:55 INR 1.09 (0.83-1.16) 06/29/18 16:55 - Physical Exam Constitutional: chronically ill appearing, uncomfortable Eyes: PERRL Ears, Nose, Mouth, Throat: dry mucous membranes Cardiovascular: regular rate and rhythym Respiratory: no respiratory distress, clear to auscultation Gastrointestinal: soft, non-tender abdomen Genitourinary: no bladder tenderness Skin: warm Musculoskeletal: pain with ROM Neurologic: No AAOx3 Psychiatric: No interacting appropriately ICD10 Worksheet Patient Problems: Problems Problem Status Onset Fracture, femur Acute Acute encephalopathy Acute Acute right hip pain Acute Anemia Acute Closed right hip fracture Acute Dehydration Acute Failure to thrive Acute Fracture of pubic ramus Acute Generalized weakness Acute History of Parkinson's disease Acute Hypoxia Acute Multiple rib fractures Acute Parkinson disease Acute Pneumothorax, right Acute Radial styloid fracture Acute Sternal contusion Acute
[2018-07-01] MEDS: CARBIDOPA/LEVO CR 50 MG/200 MG TAB PO SCH ×5 (05:30→21:26)
[2018-07-01] MEDS: ENTACAPONE 200 MG TAB PO SCH ×5 (05:30→21:28)
[2018-07-01] MEDS: DULoxetine 20 MG CAP PO SCH ×2 (08:01→21:26)
[2018-07-01] MEDS: MIDODRINE HCL 5 MG TAB PO SCH ×3 (08:01→21:32)
[2018-07-01] MEDS: DONEPEZIL HCL 5 MG TAB PO SCH (08:01)
[2018-07-01] MEDS: oxyCODONE IR 5 MG TAB PO PRN ×2 (08:02→18:35)
[2018-07-01] MEDS: ACETAMINOPHEN 500 MG TAB PO SCH ×4 (08:02→23:16)
[2018-07-01] MEDS: CYANO/VITAMIN B12 1000 MCG TAB PO SCH (08:03)
[2018-07-01] MEDS: SENNOSIDES/DOCUSATE SODIUM TAB PO SCH ×2 (08:54→21:14)
--- NOTE | 2018-07-01 12:06 | GCON ---
ORTHOPEDIC CONSULTATION REASON FOR CONSULTATION: Right hip pain. HISTORY OF PRESENT ILLNESS: This is a 72-year-old male with advanced Parkinson's and dementia with a history of a left total hip arthroplasty and right hip hemiarthroplasty. He sustained a mechanical fall and is currently complaining of only right hip pain. However, earlier in admission, he was comp laining of bilateral hip pain. There was a previously documented right-sided leg length discrepancy, which appears to be unchanged currently. He complains of pain with motion of his right hip but not his left. PAST MEDICAL HISTORY: As above as well as history of falls with pubic rami fractures, pneumothorax, wrist fractures, sundowning, GERD. PAST SURGICAL HISTORY: As above as well as bilateral knee replacements. REVIEW OF SYSTEMS: Ten point review of systems was reviewed and negative except for above. PHYSICAL EXAM: GENERAL APPEARANCE: The patient is awake and alert, however, a relatively poor histo arnie. There is no family with him during the interview. EXTREMITIES: He has no pain with log roll of his left lower extremity and can flex to 90 with external and internal rotation, causing minimal d iscomfort. The right hip has pain with log roll and can flex to approximately 40 degrees with some p ain. He is tender to palpation over the bilateral trochanters significantly more on the right compar ed to the left. IMAGING: X-rays of the bilateral hips reveal unchanged alignment of his previous hip arthroplasties. The left greater trochanteric fracture is possibly of undetermined age and appears stable. There i s no change in alignment. The right greater trochanteric fracture, periprosthetic fracture Sterrett A, there is no change in alignment or evidence of subsidence of the femoral stem compared to x-rays in March. Fracture extending across the intertrochanteric region at the level of the calcar is questi onable and possibly unchanged from previous x-rays. ASSESSMENT/PLAN: 72-year-old male with advanced Parkinson's and dementia. Recommend non operative t reatment for both fractures. Technically the patient could be 20 pounds foot flat weightbearing to t he right lower extremity. However, given his risk of fall, dementia, it would likely be safer to tucker p him wheelchair-bound while his fracture heals for the next 6 weeks. Would recommend the patient fo llow up in approximately 3 weeks for repeat x-rays. He understands and agrees with this treatment pl an. The case was discussed with Dr. Hubbard, who also agrees with the plan. /[id number]/MODL
--- NOTE | 2018-07-01 12:39 | HOSPPROG ---
Hospitalist Progress Note Assessment/Plan: 1. Hip fractures. - Acute right femoral neck and acute left greater trochanteric - Secondary to traumatic fall, present on admission, occurring on 06/27 p.m. - Seen by Ortho on 06/29, Dr. Johnson, who recommended nonoperative plan - has requested 2nd opinion by Orthopaedics, seen by Dr. Infante who also recommends nonoperative management - supportive care with heat pad, ice, Tylenol, as needed Dilaudid for severe pain - Dr. Infante recommended wheelchair for 6 weeks given patient's parkinson's and inability to abide by weight bearing recommendations 2. Severe Parkinson's disease with dementia. -Patient has chronic encephalopathy and a history of nocturnal behavioral disturbance, -Continue home medications -encourage case management to work with the palliative service determine whether palliative services can be received at his memory care unit 3. Autonomic dysfunction with Parkinson's disease. - Continue midodrine 4. Leukocytosis. - Most likely secondary to acute pain, patient not demonstrating any additional signs of infection with a normal heart rate, afebrile - Continue to monitor Diet. Regular site, NPO, With IV fluids Prophylaxis. High risk patient, SCDs, hold pharm in case he does have Surgery Code. Do not resuscitate per advanced directive, is MD PINK Disposition. Pending clinical course, Therapy has recommended SNF, CM working on this, possible d/c tomorrow pending availability Subjective: Patient with pain in RLE this morning Objective: Vital Signs Temp Pulse Resp BP Pulse Ox 37.1 C 65 12 96/51 L 94 07/01/18 11:56 07/01/18 11:56 07/01/18 11:56 07/01/18 11:56 07/01/18 11:56 Laboratory Results 06/30/18 04:33 06/30/18 04:33 06/30/18 07/01/18 07/02/18 05:59 05:59 05:59 Intake Total 2585 Output Total 150 Balance -150 2585 PT 14.3 SEC (12.0-15.0) 06/29/18 16:55 INR 1.09 (0.83-1.16) 06/29/18 16:55 - Physical Exam Constitutional: chronically ill appearing, unkempt Eyes: PERRL Cardiovascular: No edema Respiratory: no respiratory distress Gastrointestinal: No distension Genitourinary: No beckham in urethra Skin: normal color Musculoskeletal: pain with ROM Neurologic: No AAOx3 Psychiatric: No interacting appropriately ICD10 Worksheet Patient Problems: Problems Problem Status Onset Fracture, femur Acute Acute encephalopathy Acute Acute right hip pain Acute Anemia Acute Closed right hip fracture Acute Dehydration Acute Failure to thrive Acute Fracture of pubic ramus Acute Generalized weakness Acute History of Parkinson's disease Acute Hypoxia Acute Multiple rib fractures Acute Parkinson disease Acute Pneumothorax, right Acute Radial styloid fracture Acute Sternal contusion Acute
--- NOTE | 2018-07-01 13:53 | ASMTCMCOM ---
CM Note CM Note Notes: PT/OT rec SNF. Pt Monica wants to consider other SNF options besides [facility]. Since [facility] has no insurance bed, [facility] and [facility] are the choices due to pt insurance. Britt from [facility] to complete on-site assessment. CM to follow. Date Signed: 07/01/2018 01:53 PM Electronically Signed By:SANDRA Vega
[2018-07-01] MEDS: MIRTAZAPINE 15 MG TAB PO SCH (21:27)
--- NOTE | 2018-07-02 06:01 | SOAPPROG ---
SOAP Progress Note Assessment/Plan: Assessment: R keanu prosthetic femur fx Pain appears to be improving able to move RLE Leg lengths/rotation/NV unchanged Plan: OOB as marilu Limited WB RLE F/U ~ 3wks 07/02/18 05:59 Objective: Vital Signs Temp Pulse Resp BP Pulse Ox 36.4 C 53 L 14 121/64 H 95 07/02/18 02:53 07/02/18 02:53 07/02/18 02:53 07/02/18 02:53 07/02/18 02:53 Laboratory Results 06/30/18 04:33 06/30/18 04:33 06/30/18 07/01/18 07/02/18 05:59 05:59 05:59 Intake Total 2585 Output Total 150 Balance -150 2585 PT 14.3 SEC (12.0-15.0) 06/29/18 16:55 INR 1.09 (0.83-1.16) 06/29/18 16:55 ICD10 Worksheet Patient Problems: Problems Problem Status Onset Fracture, femur Acute Acute encephalopathy Acute Acute right hip pain Acute Anemia Acute Closed right hip fracture Acute Dehydration Acute Failure to thrive Acute Fracture of pubic ramus Acute Generalized weakness Acute History of Parkinson's disease Acute Hypoxia Acute Multiple rib fractures Acute Parkinson disease Acute Pneumothorax, right Acute Radial styloid fracture Acute Sternal contusion Acute
[2018-07-02] MEDS: ENTACAPONE 200 MG TAB PO SCH ×5 (06:10→21:06)
[2018-07-02] MEDS: oxyCODONE IR 5 MG TAB PO PRN ×2 (06:10→21:09)
[2018-07-02] MEDS: CARBIDOPA/LEVO CR 50 MG/200 MG TAB PO SCH ×5 (06:10→21:04)
[2018-07-02] MEDS: NS 1,000 ML IV SCH ×2 (09:54→21:04)
[2018-07-02] MEDS: DONEPEZIL HCL 5 MG TAB PO SCH (10:01)
[2018-07-02] MEDS: DULoxetine 20 MG CAP PO SCH ×2 (10:01→21:06)
[2018-07-02] MEDS: ACETAMINOPHEN 500 MG TAB PO SCH ×3 (10:01→21:09)
[2018-07-02] MEDS: CYANO/VITAMIN B12 1000 MCG TAB PO SCH (10:02)
[2018-07-02] MEDS: SENNOSIDES/DOCUSATE SODIUM TAB PO SCH ×2 (10:07→21:06)
[2018-07-02] MEDS: MIDODRINE HCL 5 MG TAB PO SCH ×3 (10:07→23:45)
--- NOTE | 2018-07-02 10:14 | HOSPPROG ---
Hospitalist Progress Note Assessment/Plan: DIAGNOSES: * right periprosthetic hip fracture after fall at home * suspected left greater trochanter fracture after fall at home * uncontrolled pain * hypotension - worse this morning, question if he could have some bleeding, has poor oral intake * post hemorrhagic anemia from his injuries * gait instability due to parkinsonism and orthostatic hypotension * dementia PLANS: * IV hydration, follow blood pressures very closely * Check hemoglobin, consider transfusion if he is anemic enough * Continue non operative management * Will add some tramadol for pain, follow results closely DC PLANNING: The patient will need assisted care. The family has not yet chosen a specific facility and we are waiting for a number facilities to do an assessment , none of them have accepted him yet so we are not able to put in a insurance authorization request. Is anticipated that because of these ongoing process is not being done and today being Thursday we may not be able to get him out of the hospital until after the weekend. SUBJECTIVE: Complains of ongoing pain at right hip Mentions he has pain throughout his entire body Per his nurse he is eating, activity limited by market pain OBJECTIVE Vitals reviewed: Some hypotension again this morning otherwise stable without fever Exam: alert, interactive, appears mildly uncomfortable skin warm dry color pale resps not labored lungs clear BSs heart regular abd soft nondistended nontender, bowel sounds present limbs warm, no edema iv site ok No laboratory data so far today, I have ordered CBC and type and cross Objective: Vital Signs Temp Pulse Resp BP Pulse Ox 36.4 C 61 18 88/61 L 94 07/02/18 07:44 07/02/18 07:44 07/02/18 07:44 07/02/18 07:44 07/02/18 07:44 Laboratory Results 06/30/18 04:33 06/30/18 04:33 07/01/18 07/02/18 07/03/18 06:59 06:59 06:59 Intake Total 2585 200 Output Total 3 Balance 2585 197 PT 14.3 SEC (12.0-15.0) 06/29/18 16:55 INR 1.09 (0.83-1.16) 06/29/18 16:55 ICD10 Worksheet Patient Problems: Problems Problem Status Onset Fracture, femur Acute Acute encephalopathy Acute Acute right hip pain Acute Anemia Acute Closed right hip fracture Acute Dehydration Acute Failure to thrive Acute Fracture of pubic ramus Acute Generalized weakness Acute History of Parkinson's disease Acute Hypoxia Acute Multiple rib fractures Acute Parkinson disease Acute Pneumothorax, right Acute Radial styloid fracture Acute Sternal contusion Acute
[2018-07-02 11:21] LABS: PLATELET COUNT 334 10^3/uL (150-400)
[2018-07-02] MEDS: traMADol 50 MG TAB PO SCH ×3 (14:12→23:46)
--- NOTE | 2018-07-02 14:36 | ASMTCMCOM ---
CM Note CM Note Notes: [facility] and [facility] accept pt, pt Monica wants to tour today and has 3N CM phone number to call and let CM know choice. When pt makes a decision she will need to speak with admissions staff directly because each SNF has said a different copay/financial responsibility. [facility] reports pt responsible for $100/day, [facility] reports pt responsible for 15% but could not provide a rate and [facility] reports pt responsible for 30% copay (rate not given). All of the SNFs have information about deductible and out of pocket max that Monica really needs to discuss with the SNF. Pt likely not d/c until Thursday as insurance auth is needed. Date Signed: 07/02/2018 02:36 PM Electronically Signed By:SANDRA Vega
--- NOTE | 2018-07-02 15:15 | ASMTCMCOM ---
CM Note CM Note Notes: Palliative care handout provided to pt Monica since the palliative team has not been able to connect with her, Monica reports she will think about if she is interested in an outpatient palliative care referral and let CM know. Date Signed: 07/02/2018 03:14 PM Electronically Signed By:SANDRA Vega
--- NOTE | 2018-07-02 16:35 | ASMTCMCOM ---
CM Note CM Note Notes: Pt informs CM she chooses [facility] for pt d/c. At the same time, Melissa with [facility] informs CM they just received insurance authorization. [facility] had been permitted to start the auth just so something was in the works. Melissa is alerted to rescind the [facility] auth. Ana Luisa with [facility] admissions will see what they can do to get the auth transferred to [facility] today so pt can at least d/c over the weekend. This may not be likely as the authorizations are SNF specific and [facility] may not be able to obtain auth until Thursday (earliest). Ana Luisa is asked to call Monica ([phone]) to discuss SNF insurance coverage. Date Signed: 07/02/2018 04:35 PM Electronically Signed By:SANDRA Vega
[2018-07-02] MEDS: MIRTAZAPINE 15 MG TAB PO SCH (21:05)
[2018-07-03] MEDS: CARBIDOPA/LEVO CR 50 MG/200 MG TAB PO SCH ×5 (05:16→23:17)
[2018-07-03] MEDS: ENTACAPONE 200 MG TAB PO SCH ×5 (05:16→22:08)
[2018-07-03] MEDS: traMADol 50 MG TAB PO SCH ×5 (05:16→23:12)
[2018-07-03] MEDS: MIDODRINE HCL 5 MG TAB PO SCH ×4 (09:17→22:19)
[2018-07-03] MEDS: DONEPEZIL HCL 5 MG TAB PO SCH (09:17)
[2018-07-03] MEDS: CYANO/VITAMIN B12 1000 MCG TAB PO SCH (09:18)
[2018-07-03] MEDS: ACETAMINOPHEN 500 MG TAB PO SCH ×3 (09:18→22:18)
[2018-07-03] MEDS: DULoxetine 20 MG CAP PO SCH ×2 (09:18→22:07)
[2018-07-03] MEDS: SENNOSIDES/DOCUSATE SODIUM TAB PO SCH (09:19)
[2018-07-03] MEDS: NS 1,000 ML IV SCH ×2 (09:31→22:04)
[2018-07-03] MEDS: oxyCODONE IR 5 MG TAB PO PRN (10:14)
--- NOTE | 2018-07-03 17:47 | HOSPPROG ---
Hospitalist Progress Note Assessment/Plan: DIAGNOSES: * right periprosthetic hip fracture after fall at home * suspected left greater trochanter fracture after fall at home (though he is moving that had very well in bed) * Pain due to above * low blood pressures are likely due to known autonomic instability from his Parkinson's * post hemorrhagic anemia from his injuries * gait instability due to parkinsonism and orthostatic hypotension * dementia PLANS: * IV hydration, follow blood pressures very closely * Check hemoglobin, consider transfusion if he is anemic enough * Continue non operative management * Will add some tramadol for pain, follow results closely DC PLANNING: The patient will need usp care. Family has chosen [facility] but did we have not been able to get insurance authorization and now that it is Thursday will probably need to wait until Thursday for that to be completed SUBJECTIVE: Complains of ongoing pain at right hip unchanged Per his nurse he is eating though appetite seems poor Some loose stool but has been getting twice daily stool softener and laxative scheduled OBJECTIVE Vitals reviewed: stable without fever Exam: alert, interactive, appears more comfortable today skin warm dry color pale resps not labored lungs clear BSs heart regular abd soft nondistended nontender, bowel sounds present limbs warm, no edema iv site ok Objective: Vital Signs Temp Pulse Resp BP Pulse Ox 35.8 C L 62 15 97/56 L 94 07/03/18 15:55 07/03/18 15:55 07/03/18 15:55 07/03/18 15:55 07/03/18 15:55 Laboratory Results 07/02/18 10:55 06/30/18 04:33 07/02/18 07/03/18 07/04/18 06:59 06:59 06:59 Intake Total 200 300 Output Total 3 250 Balance 197 50 PT 14.3 SEC (12.0-15.0) 06/29/18 16:55 INR 1.09 (0.83-1.16) 06/29/18 16:55 ICD10 Worksheet Patient Problems: Problems Problem Status Onset Fracture, femur Acute Acute encephalopathy Acute Acute right hip pain Acute Anemia Acute Closed right hip fracture Acute Dehydration Acute Failure to thrive Acute Fracture of pubic ramus Acute Generalized weakness Acute History of Parkinson's disease Acute Hypoxia Acute Multiple rib fractures Acute Parkinson disease Acute Pneumothorax, right Acute Radial styloid fracture Acute Sternal contusion Acute
[2018-07-03] MEDS: MIRTAZAPINE 15 MG TAB PO SCH (22:08)
[2018-07-03] MEDS: CARBIDOPA/LEVODOPA 25 MG/100 MG TAB TUBE SCH (23:13)
[2018-07-04] MEDS: traMADol 50 MG TAB PO SCH ×2 (05:11→07:46)
[2018-07-04] MEDS: CARBIDOPA/LEVODOPA 25 MG/100 MG TAB TUBE SCH ×3 (05:11→10:28)
[2018-07-04] MEDS: ENTACAPONE 200 MG TAB PO SCH ×6 (05:11→23:04)
[2018-07-04] MEDS: DONEPEZIL HCL 5 MG TAB PO SCH (07:40)
[2018-07-04] MEDS: MIDODRINE HCL 5 MG TAB PO SCH ×2 (07:40→12:31)
[2018-07-04] MEDS: NS 1,000 ML IV SCH ×2 (07:40→17:28)
[2018-07-04] MEDS: CYANO/VITAMIN B12 1000 MCG TAB PO SCH (07:41)
[2018-07-04] MEDS: DULoxetine 20 MG CAP PO SCH ×2 (07:41→20:00)
[2018-07-04] MEDS: ACETAMINOPHEN 500 MG TAB PO SCH ×3 (07:41→23:02)
[2018-07-04] MEDS: TRIAMCINOLONE 0.5% 15GM CREAM TP SCH ×3 (12:32→23:08)
[2018-07-04] MEDS: oxyCODONE IR 5 MG TAB PO PRN (12:32)
[2018-07-04] MEDS: CARBIDOPA/LEVODOPA 25 MG/100 MG TAB PO SCH ×3 (14:34→23:03)
--- NOTE | 2018-07-04 15:14 | ASMTCMCOM ---
CM Note CM Note Notes: went to visit [facility]. The facility is close to their home. They have Para Ins with [place] & Medicare Part B. Need to have authorization from [place] on Thursday. It sounds like [place] will pay 70% of costs and patient is responsible for 30%. Updated referral to [facility]. Date Signed: 07/04/2018 03:13 PM Electronically Signed By:Maira Granda LCSW
--- NOTE | 2018-07-04 19:01 | HOSPPROG ---
Hospitalist Progress Note Assessment/Plan: The patient is a 72-year-old male with PMH Parkinson's disease who was admitted for right hip fracture. ASSESSMENT/PLAN: Right periprosthetic hip fracture, nondisplaced Left mildly displaced greater trochanter fracture History of bilateral hip arthroplasty Hip pain, secondary to above Generalized weakness Acute debility Severe osteoporosis Parkinson's disease, stable Orthostatic hypotension, improved Acute pruritic dermatitis, suspect allergic Dementia, stable Anemia, stable Leukocytosis, resolved -discussed case with pharmacist. Sinemet has been changed to extended release version for better motor control. -changing patient's status to inpatient from observation. Patient has been unsafe to go home because of his generalized weakness. -because patient is acutely debilitated, he will need placement in a nursing home facility. Pending placement tomorrow. -recommended the patient use incentive spirometer regularly. -reviewed medications. Suspect patient has had an allergic reaction to tramadol , which is new to him. DC tramadol in at allergy list. +Triamcinolone cream for rash. -consider to add a bisphosphonate as an outpatient. -ortho previously consulted, they recommend non operative conservative management. Patient is to be mostly "touchdown" nonweightbearing on the right lower extremity VTE prophylaxis: Lovenox Code Status: DNR Status: Inpatient for greater than 2 midnight stay. Disposition: Med [facility] with discharge tomorrow This patient is new to me. Reviewed patient's chart/records for this visit. ____ SUBJECTIVE: Today the patient was seen with his . His back has a rash which erupted yesterday. It is itchy. OBJECTIVE: Physical Exam: General: The patient is a thin male who is alert and in no acute distress. HEENT: normocephalic, extraocular movements intact, conjunctivae clear. Mucous membranes moist. Neck: trachea midline, no visible masses. CV: +S1/S2, RRR, no MRG. Resp: unlabored, CTAB no RRW. Abd: soft and nondistended. Bowel sounds present. Musculoskeletal: Reduced muscle tone/bulk. Neuro: cranial nerves II XII grossly intact. Intact gross motor and sensory function. + pill rolling tremor. Psych: Appropriate mood and flat affect. Skin: + mild pallor. Several petechiae. + maculopapular rash noted on back. Heme/lymph: No peripheral edema at bilateral lower extremities. Labs/Imaging/Other Tests: Personally reviewed/interpreted. Hip u-doz-Xicdyl osteoporosis. Bilateral GERRY with normal alignment. Suspected acute oblique fracture through right femoral neck. Suspected displaced fracture fragment over left greater trochanter. Objective: Vital Signs Temp Pulse Resp BP Pulse Ox 37.1 C 58 L 13 122/78 H 96 07/04/18 17:43 07/04/18 17:43 07/04/18 17:43 07/04/18 17:43 07/04/18 17:43 Laboratory Results 07/02/18 10:55 06/30/18 04:33 07/03/18 07/04/18 07/05/18 05:59 05:59 05:59 Intake Total 435 702 9938 Output Total 250 500 Balance 50 180 1100 PT 14.3 SEC (12.0-15.0) 06/29/18 16:55 INR 1.09 (0.83-1.16) 06/29/18 16:55 - Time Spent With Patient Time Spent with Patient: greater than 35 minutes Time Spent with Patient: Greater than 35 minutes spent on this patients care, greater than 50% of time spent counseling, educating, and coordinating care regarding the above mentioned plan. ICD10 Worksheet Patient Problems: Problems Problem Status Onset Fracture, femur Acute Acute encephalopathy Acute Acute right hip pain Acute Anemia Acute Closed right hip fracture Acute Dehydration Acute Failure to thrive Acute Fracture of pubic ramus Acute Generalized weakness Acute History of Parkinson's disease Acute Hypoxia Acute Multiple rib fractures Acute Parkinson disease Acute Pneumothorax, right Acute Radial styloid fracture Acute Sternal contusion Acute
[2018-07-04] MEDS: MIRTAZAPINE 15 MG TAB PO SCH (20:00)
[2018-07-05] MEDS: NS 1,000 ML IV SCH (03:34)
[2018-07-05] MEDS: CARBIDOPA/LEVODOPA 25 MG/100 MG TAB PO SCH ×4 (05:53→17:18)
[2018-07-05] MEDS: ENTACAPONE 200 MG TAB PO SCH ×4 (05:53→17:18)
[2018-07-05] MEDS: MIDODRINE HCL 5 MG TAB PO SCH ×2 (06:00→10:50)
[2018-07-05] MEDS: DULoxetine 20 MG CAP PO SCH (07:24)
[2018-07-05] MEDS: CYANO/VITAMIN B12 1000 MCG TAB PO SCH (07:24)
[2018-07-05] MEDS: DONEPEZIL HCL 5 MG TAB PO SCH (07:24)
[2018-07-05] MEDS: TRIAMCINOLONE 0.5% 15GM CREAM TP SCH ×2 (07:26→17:20)
[2018-07-05] MEDS: oxyCODONE IR 5 MG TAB PO PRN ×2 (08:11→18:32)
[2018-07-05] MEDS: ACETAMINOPHEN 500 MG TAB PO SCH ×2 (10:48→17:17)
--- NOTE | 2018-07-05 12:04 | PDIAF ---
- Diagnosis Code Status: Do Not Resuscitate - Medication Management Discharge Medications: Medications to Continue on Transfer Carbidopa/Levo Cr 50/200Mg [SINEMET CR 50/200 MG (*)] 1 tab PO 5XD 12/16/14 [ Last Taken 07/17/17 12:00] Entacapone [Comtan] 200 mg PO 5XD 12/16/14 [Last Taken 12/26/16 12:00] Midodrine HCl [Proamatine/Midodrin] 10 mg PO BID@,12/29/16 [Last Taken 11/28 12:00] Donepezil HCl [Aricept 5 MG (*)] 10 mg PO DAILY 07/17/17 [Last Taken 07/17/17 08 :00] Acetaminophen [Tylenol ES 500 mg (*)] 1,000 mg PO TID 06/29/18 [Last Taken Unknown] Bisacodyl [Dulcolax] 10 mg RC DAILY PRN 06/29/18 [Last Taken Unknown] Cyanocobalamin [Vitamin B12 (*)] 2,000 mcg PO DAILY 06/29/18 [Last Taken Unknown ] DULoxetine [Cymbalta] 20 mg PO BID 06/29/18 [Last Taken Unknown] MIRTAZAPINE [Remeron 7.5 mg] 7.5 mg PO HS 06/29/18 [Last Taken Unknown] Midodrine HCl 5 mg PO HS 06/29/18 [Last Taken Unknown] Polyethylene Glycol 3350 [Miralax 17 gm (*)] 17 gm PO DAILY PRN 06/29/18 [Last Taken Unknown] Sennosides/Docusate Sodium [Senokot-S] 1 tab PO BID 06/29/18 [Last Taken Unknown ] oxyCODONE IR [Oxycodone Ir (*)] 5 mg PO Q8 PRN 06/29/18 [Last Taken Unknown] Lidocaine 4%/Menthol 1% [Icy Hot Lidocaine/Menthol 4%/1% Patch (*)] 1 patch TD DAILY patch 07/05/18 [Last Taken Unknown] Lidocaine [Lidocaine Pain Relief] 1 each TD DAILY PRN 30 Days #30 adh..patch [Last Taken Unknown] Triamcinolone 0.5% [Triamcinolone 0.5% Cream (*)] 1 jd TP TID #0 cream [Last Taken Unknown] Discharge Medications: Refer to the Discharge Home Medication list for PRN reason. - Orders Services needed: Registered Nurse, Certified Household Appliances Service Technician, Physical Therapy, Occupational Therapy Isolation Type: None Diet Recommendation: no restrictions on diet Diet Texture: Regular Texture Diet Additional Instructions: 20lb foot-flat WB to RLE. WBAT to left. Likely wheelchair bound secondary to fall risk for 6wks - Follow Up Care Current Providers and Referrals: Varsha Rea MD [Primary Care Provider] - follow up in 2 weeks Mauricio Infante MD [Medical Doctor] - (CALL TO BOOK APT IN 3 WEEKS FROM DISCHARGE, NEEDS XRAYS OBTAINED OF BILATERAL UPPER FEMURS. SEE DR [facility]OWN OR ELYSIA )
--- NOTE | 2018-07-05 12:11 | ASMTLACE ---
SAM Length of stay for Answers: 7-13 days current admission Acuity / Level of Answers: Yes Care: Did the patient have an inpatient admission? Comorbidities - select Answers: Dementia all that apply History of falls Opioid dependence / Chronic pain Other Notes: Parksinson's disease; GERD # of Emergency department Answers: 1-2 visits in the last 6 months Social determinants Answers: Mental health diagnosis (anxiety, depression, pers onality disorders, etc.) Score: 23 Date Signed: 07/05/2018 12:10 PM Electronically Signed By:SANDRA Vgea
--- NOTE | 2018-07-05 12:18 | PDDCSUM ---
Discharge Summary Discharge Summary: Date of Admission: June 29, 2018 Date of Discharge: July 05, 2018 Discharge Diagnoses: Right periprosthetic hip fracture, nondisplaced Left mildly displaced greater trochanter fracture History of bilateral hip arthroplasty Hip pain, secondary to above Generalized weakness Acute debility Severe osteoporosis Parkinson's disease, stable Orthostatic hypotension, controlled Acute pruritic dermatitis, suspect allergy to tramadol Dementia, stable Anemia, stable Admission Diagnoses: Hip fractures Severe Parkinson's disease with dementia Autonomic dysfunction with Parkinson's disease Leukocytosis Consultants: Orthopedic surgery-Dr. Johnson. Hospital Course: The patient is a 72-year-old male who presented with right hip pain, bruising, and swelling 2 nights after he was found on the floor by staff at [facility]. Patient was found to have acute fractures of both hips, greater on the right side. Orthopedic surgery was consulted for potential repair. Fractures were consider to be nondisplaced and stable. Non operative treatment was recommended for the left side. Limited weight-bearing was recommended to allow the right side to heal. However, if the right fracture gets displaced the patient would need surgery. Repeat imaging is recommended in 3 weeks to assess fracture positioning. Patient did developed a rash that was itchy on his back the day he was started on tramadol. The next day, tramadol was discontinued and patient was given steroid cream to help with itching. It is recommended that this rash continue to be monitored. It is recommended that tramadol be added to the patient's allergy list. Physical Exam: General: The patient is a male who is alert and in no acute distress. HEENT: normocephalic, extraocular movements intact, conjunctivae clear, no lesions on face. Nares and oral mucosa pink and moist. Neck: trachea midline, no visible masses, no external lesions. Resp: unlabored breathing. Abd: soft and nondistended. Musculoskeletal: +right hip tenderness. Neuro: cranial nerves II XII grossly intact. Intact gross motor and sensory function. +mild pill rolling tremor. Psych: appropriate mood/blunted affect. Skin: no pallor. Condition: Fair. Discharged to: [facility] facility Pertinent tests/labs/imaging: Hip c-vce-Yngxqg osteoporosis. Bilateral GERRY with normal alignment. Suspected acute oblique fracture through right femoral neck. Suspected displaced fracture fragment over left greater trochanter. Medications: Please see med rec form. Special instructions: 20 lb flatfoot weight-bearing to right lower extremity. Weightbearing as tolerated to left side. Likely wheelchair bound for fall risk in the next 6 weeks. Consider treatment for osteoporosis as an outpatient. Follow up: Follow up with Orthopedic surgery (Dr. Johnson or Dr. Infante) in 3 weeks for repeat x-rays of bilateral hips. Follow-up with PCP in 2 weeks to discuss recent fractures and medication changes if needed (for osteoporosis). > 30 minutes of total time was spent on counseling and coordination of care for this patient's discharge.
[2018-07-05] MEDS ORDERED: oxyCODONE IR 5 MG TAB PO ONE (15:15)
[2018-07-05 15:42] VITALS: BP 119/61
[2018-07-05] MEDS ORDERED: PATCH REMOVAL 1 EA PATCH TD SCH (21:00)
[2018-07-06] MEDS ORDERED: LIDOCAINE 4%/MENTHOL 1% PATCH TD SCH (09:00)
--- NOTE | 2018-07-06 11:29 | ASDISCHSUM ---
Discharge Information Plan Status:SNF Medically Cleared to Leave: Discharge Date:07/05/2018 06:40 PM CM D/C Disposition:Custodial Facility ADT D/C Disposition:Custodial Facility Projected Discharge Date:07/05/2018 11:00 AM Transportation at D/C:ALS/BLS Discharge Delay Reason: Follow-Up Date:07/05/2018 11:00 AM Discharge Slot: Final Diagnosis:Parkinson's, Hip fx Placement Information Referral Type:*Detention/SNF Referral ID:[id number] Provider Name:[facility] Address 1:[address] Address 2: City:[place] Selection Factors: State:[place] Patient Contact Information Contact Name:RONAN Relationship: Address:[address] [place] [address] City:[place] Alternate Phone: State/Zip Code:[place] [address] Email: Financial Information Financial Class:Medicare Primary Plan Desc:MEDICARE IP PART B ONLY Primary Plan Number:[id number] Secondary Plan Desc:ASHLEY PPO Secondary Plan Number:[id number] Assessment Information LACE LACE Comorbidities - select Answers: Dementia all that apply History of falls Opioid dependence / Chronic pain Other Notes: Parksinson's disease; GERD # of Emergency department Answers: 1-2 visits in the last 6 months Social determinants Answers: Mental health diagnosis (anxiety, depression, pers onality disorders, etc.) Score: 15 Date Signed: 06/30/2018 08:41 AM Electronically Signed By:Funmi Da Silva [facility] CM Progress Note CM Note CM Note Notes: Patient admitted after a fall. He has a new R hip fracture and a history of L GERRY and R hip hemiarthroplasty. A nonsurgical approach has been recommended for the new fracture. Patient has a hx of Parkinson's and dementia. He lives in a memory care unit at [facility]. I spoke with his Monica, and we both anticipate the need for SNF rehab. Patient has been to [facility] in the past, and Monica is ok with a referral to , which I have sent. Case Management will follow. Date Signed: 06/30/2018 10:39 AM Electronically Signed By:Angelita Ziegler RN [facility] Progress Note CM Note CM Note Notes: PT/OT rec SNF. Pt Monica wants to consider other SNF options besides [facility]. Since [facility] has no insurance bed, [facility] and [facility] are the choices due to pt insurance. Britt from [facility] to complete on-site assessment. CM to follow. Date Signed: 07/01/2018 01:53 PM Electronically Signed By:SANDRA Vega [facility] Progress Note CM Note CM Note Notes: [facility] and [facility] accept pt, pt Monica wants to tour today and has 3N phone number to call and let CM know choice. When pt makes a decision she will need to speak with admissions staff directly because each SNF has said a different copay/financial responsibility. [facility] reports pt responsible for $100/day, [facility] reports pt responsible for 15% but could not provide a rate and [facility] reports pt responsible for 30% copay (rate not given). All of the SNFs have information about deductible and out of pocket max that Monica really needs to discuss with the SNF. Pt likely not d/c until Thursday as insurance auth is needed. Date Signed: 07/02/2018 02:36 PM Electronically Signed By:SANDRA Vega [facility] Progress Note CM Note RON Note Notes: Palliative care handout provided to pt Monica since the palliative team has not been able to connect with her, Monica reports she will think about if she is interested in an outpatient palliative care referral and let CM know. Date Signed: 07/02/2018 03:14 PM Electronically Signed By:SANDRA Vega [facility] Progress Note CM Note CM Note Notes: Pt informs CM she chooses [facility] for pt d/c. At the same time, Melissa with [facility] informs CM they just received insurance authorization. [facility] had been permitted to start the auth just so something was in the works. Melissa is alerted to rescind the [facility] authKenyetta Orosco with [facility] admissions will see what they can do to get the auth transferred to [facility] today so pt can at least d/c over the weekend. This may not be likely as the authorizations are SNF specific and [facility] may not be able to obtain auth until Thursday (earliest). Ana Luisa is asked to call Monica ([phone]) to discuss SNF insurance coverage. Date Signed: 07/02/2018 04:35 PM Electronically Signed By:SANDRA Vega [facility] CM Progress Note CM Note CM Note Notes: went to visit [facility]. The facility is close to their home. They have Para Ins with [place] & Medicare Part B. Need to have authorization from [place] on Thursday. It sounds like [place] will pay 70% of costs and patient is responsible for 30%. Updated referral to [facility]. Date Signed: 07/04/2018 03:13 PM Electronically Signed By:Maira Granda LCSW LACE LACMike Length of stay for Answers: 7-13 days current admission Acuity / Level of Answers: Yes Care: Did the patient have an inpatient admission? Comorbidities - select Answers: Dementia all that apply History of falls Opioid dependence / Chronic pain Other Notes: Parksinson's disease; GERD # of Emergency department Answers: 1-2 visits in the last 6 months Social determinants Answers: Mental health diagnosis (anxiety, depression, pers onality disorders, etc.) Score: 23 Date Signed: 07/05/2018 12:10 PM Electronically Signed By:Celina Odilon, [employer]DEP[employer]ENT [employer]IVER Intervention Information Intervention Type:*Incorrect Registration Date of Service:06/29/2018 09:35 AM Patient Type:Observation Staff Member:TERESITA Chaidez Courtney Hours: Discipline: Severity: Comment:
== END 2018-07-05 18:40 | DRG 559 ==
LOC: EDUNIT# → OBSVTOIN 19:23 → F3N 20:46
PROVIDERS: ADMIT Internal Medicine; ATTEND Internal Medicine
DX: M97.01XA Periprosthetic fracture around internal prosthetic right hip joint, initial encounter (principal); S72.112A Displaced fracture of greater trochanter of left femur, initial encounter for closed fracture; E86.9 Volume depletion, unspecified; W19.XXXA Unspecified fall, initial encounter; M81.0 Age-related osteoporosis without current pathological fracture; G31.83 Neurocognitive disorder with Lewy bodies; F02.80 Dementia in other diseases classified elsewhere, unspecified severity, without behavioral disturbance, psychotic disturbance, mood disturbance, and anxiety; I95.1 Orthostatic hypotension; L30.8 Other specified dermatitis; Z66 Do not resuscitate; Z96.643 Presence of artificial hip joint, bilateral
CPT/HCPCS: 97162-GP; 97166-GO; 97530-GO; 97530-GP; 97535-GO; G8978-GP-CM; G8979-GP-CK; G8987-GO-CM; G8988-GO-CK

== ENCOUNTER 2018-07-12 20:36 | Inpatient (IN) | payer OTHER ==
[2018-07-12] MEDS ORDERED: NS 500 ML IV ONE (20:41)
--- NOTE | 2018-07-12 20:43 | EDPHY ---
HPI/HX/ROS/PE/MDM Narrative: CHIEF COMPLAINT: CPR performed on patient, unsure if ever in cardiac arrest HPI: The patient is a 72 y/o male with a history of Parkinson's disease and dementia arriving via EMS from [facility] for evaluation after what staff perceived as a cardiac arrest this evening. He is currently residing at [facility] for right femur fracture rehab. EMS reports as the night nurse was giving medications, "she perceived he went into cardiac arrest" and staff began performing CPR in the bed. Upon EMS arrival, the assistant department manager evaluated patient and palpated a carotid pulse and noted he had spontaneous respirations and good skin color. Staff had an AED hooked up that never advised a shock and EMS reports no IA pattern on 12-lead EKG. The patient has not spoken to EMS throughout their contact and is currently nonverbal. No further history obtainable from patient. REVIEW OF SYSTEMS: Unobtainable due to nonverbal state. PMH: Parkinson's, autonomic dysfunction with Parkinson's, dementia, esophageal reflux, right hip fracture and repair 06/29/18; bilateral hip arthroplasty; osteoporosis; anemia SOCIAL HISTORY: Currently resides at [facility] for hip fracture rehab. Lives in [place]. Retired. Prior medical records reviewed including admission 06/29/18 for hip fracture. PHYSICAL EXAM: General:Patient is alert, cachectic, nonverbal, resting tremor, in no acute distress. ENT:Eyes are normal to inspection. ENT inspection normal. Neck: Normal inspection. Full range of motion. Respiratory:No respiratory distress. Breath sounds normal bilaterally. Cardiovascular: Regular rate and rhythm. Strong peripheral pulses. Normal cap refill. Abdomen:The abdomen is nontender to palpation. There are no peritoneal signs. Back: Normal to inspection. No tenderness to palpation. Skin: Normal color. No rash. Warm and dry. Extremities: Normal appearance. Full range of motion. Neuro: Alert. Not answering questions. Resting tremor. ED Course: This is a 72 y/o male with Parkinson's, dementia, and recent hip fracture who presents after nursing facility staff performed CPR on patient with the impression he was in cardiac arrest. Per medic report, this is inconsistent with the patient's presentation on their arrival. The patient is currently alert with a resting tremor, cachectic, and not answering questions. Concern for CVA or other neurologic cause. Plan for IV, labs, EKG, chest x-ray, and head CT. 500mL IV NS ordered. The 12 lead EKG was interpreted by myself. See hard copy and/or "tracemaster" electronic copy for interpretation. Head CT negative. Chest x-ray: right 4th rib fracture. Spoke with hospitalist service. Dr. Weathers accepts admission. - Data Points Imaging Results: Imaging Impressions Chest X-Ray 07/12/18 20:42 Impression: Acute nondisplaced right fourth posterior rib fracture, with no convincing evidence of a pneumothorax. Findings were discussed with Ronnie Benton MD at 21:32, on 07/12/2018. Head CT 07/12/18 20:42 Impression: Moderately advanced senescent features, with no acute intracranial abnormality identified on this unenhanced CT evaluation, or substantial change from 06/29/2018. If there is further clinical concern regarding the patient's symptoms, MR imaging is suggested, if not otherwise contraindicated. Findings were discussed with Sissy, the medical services assistant for Ronnie Benton MD at 21:10, on 07/12/2018. Imaging: Discussed imaging studies w/ children's counselor Radiologist, I viewed and interpreted images myself Laboratory Results: Laboratory Results 07/12/18 20:36 07/12/18 20:36 07/12/18 07/12/18 07/12/18 20:59 20:36 20:36 WBC 15.41 10^3/uL H 10^3/uL (3.80-9.50) RBC 3.18 10^6/uL L 10^6/uL (4.40-6.38) Hgb 9.6 g/dL L g/dL (13.7-17.5) Hct 32.1 % L % (40.0-51.0) MCV 100.9 fL H fL (81.5-99.8) MCH 30.2 pg pg (27.9-34.1) MCHC 29.9 g/dL L g/dL (32.4-36.7) RDW 13.5 % % (11.5-15.2) Plt Count 663 10^3/uL H 10^3/uL (150-400) MPV 8.5 fL L fL (8.7-11.7) Neut % (Auto) 68.3 % % (39.3-74.2) Lymph % (Auto) 24.5 % % (15.0-45.0) Zavala % (Auto) 4.5 % % (4.5-13.0) Eos % (Auto) 1.1 % % (0.6-7.6) Baso % (Auto) 0.3 % % (0.3-1.7) Nucleat RBC Rel Count 0.0 % % (0.0-0.2) Absolute Neuts (auto) 10.53 10^3/uL H 10^3/uL (1.70-6.50) Absolute Lymphs (auto) 3.77 10^3/uL H 10^3/uL (1.00-3.00) Absolute Monos (auto) 0.70 10^3/uL 10^3/uL (0.30-0.80) Absolute Eos (auto) 0.17 10^3/uL 10^3/uL (0.03-0.40) Absolute Basos (auto) 0.04 10^3/uL 10^3/uL (0.02-0.10) Absolute Nucleated RBC 0.00 10^3/uL 10^3/uL (0-0.01) Immature Gran % 1.3 % H % (0.0-1.1) Immature Gran # 0.20 10^3/uL H 10^3/uL (0.00-0.10) Sodium 137 mEq/L mEq/L (135-145) Potassium 4.0 mEq/L mEq/L (3.3-5.0) Chloride 102 mEq/L mEq/L (97-110) Carbon Dioxide 12 mEq/l L mEq/l (22-31) Anion Gap 23 mEq/L H mEq/L (6-14) BUN 23 mg/dL mg/dL (7-23) Creatinine 1.3 mg/dL mg/dL (0.7-1.3) Estimated GFR 54 Glucose 161 mg/dL H mg/dL (70-100) Calcium 9.1 mg/dL mg/dL (8.5-10.4) POC Troponin I 0.01 ng/mL ng/mL (0.00-0.08) Medications Given: Discontinued Medications Sodium Chloride (Ns) 500 mls @ 0 mls/hr IV EDNOW ONE; Wide Open PRN Reason: Protocol Stop: 07/12/18 20:42 Last Admin: 07/12/18 20:58 Dose: 500 mls Point of Care Test Results: Chemistry 07/12/18 20:59 POC Troponin I 0.01 ng/mL ng/mL (0.00-0.08) General Time Seen by Provider: 07/12/18 20:36 Initial Vital Signs: Initial Vital Signs Temperature (C) 36.7 C 07/12/18 20:36 Heart Rate 86 07/12/18 20:36 Respiratory Rate 36 H 07/12/18 20:36 Blood Pressure 94/52 L 07/12/18 20:36 O2 Sat (%) 94 07/12/18 20:36 O2 Delivery Mode Nasal Cannula O2 (L/minute) 2 Allergies/Adverse Reactions: morphine Allergy (Verified 07/17/17 14:19) Home Medications: Medication Instructions Recorded Carbidopa/Levo Cr 50/200Mg 1 tab PO 5XD 12/16/14 [SINEMET CR 50/200 MG (*)] Entacapone [Comtan] 200 mg PO 5XD 12/16/14 Donepezil HCl [Aricept 5 MG (*)] 10 mg PO DAILY 07/17/17 Acetaminophen [Tylenol ES 500 mg 1,000 mg PO TID 06/29/18 (*)] Bisacodyl [Dulcolax] 10 mg RC DAILY PRN 06/29/18 Cyanocobalamin [Vitamin B12 (*)] 2,000 mcg PO DAILY 06/29/18 DULoxetine [Cymbalta] 20 mg PO BID 06/29/18 MIRTAZAPINE [Remeron 7.5 mg] 7.5 mg PO HS 06/29/18 Midodrine HCl 10 mg PO BID 06/29/18 Polyethylene Glycol 3350 [Miralax 17 gm PO DAILY PRN 06/29/18 17 gm (*)] Sennosides/Docusate Sodium 1 tab PO BID 06/29/18 [Senokot-S] oxyCODONE IR [Oxycodone Ir (*)] 5 - 10 mg PO Q6 PRN 06/29/18 Lidocaine 4%/Menthol 1% [Icy Hot 1 patch TD DAILY patch 07/05/18 Lidocaine/Menthol 4%/1% Patch (*)] Lidocaine [Lidocaine Pain Relief] 1 each TD DAILY PRN 30 Days #30 07/05/18 adh..patch Triamcinolone 0.5% [Triamcinolone 1 jd TP TID #0 cream 07/05/18 0.5% Cream (*)] Gabapentin [Neurontin 100 MG (*)] 100 mg PO TID 07/12/18 Naproxen Sodium [Aleve 220 MG (*)] 220 mg PO BID 07/12/18 Departure - Departure Disposition: [facility] Inpatient Acute Clinical Impression: Altered mental status Qualifiers: Altered mental status type: unspecified Qualified Code(s): R41.82 - Altered mental status, unspecified Rib fracture Qualifiers: Encounter type: initial encounter Rib fracture type: single rib Fracture type: closed Laterality: right Qualified Code(s): S22.31XA - Fracture of one rib, right side, initial encounter for closed fracture Condition: Fair Report Scribed for: Ronnie Benton Report Scribed by: Sissy Washburn Date of Report: 07/12/18 Time of Report: 20:49 Physician Review and Approval Statement: Portions of this note were transcribed by an ED scribe. I personally performed the history, physical exam, and medical decision making; and confirm the accuracy of the information in the transcribed note.
[2018-07-12 20:53] LABS: PLATELET COUNT 663 10^3/uL (150-400)
[2018-07-12] MEDS ORDERED: ONDANSETRON 4 MG/2 ML VIAL IVP PRN (22:15)
[2018-07-12] MEDS ORDERED: ONDANSETRON DISINTEGRATING 4 MG TAB PO PRN (22:15)
[2018-07-12] MEDS ORDERED: ACETAMINOPHEN 325 MG TAB PO PRN (22:15)
[2018-07-12] MEDS: NS 1,000 ML IV SCH ×2 (22:30→23:42)
--- NOTE | 2018-07-12 23:22 | PDGENHP ---
History and Physical - Chief Complaint Unresponsiveness - History of Present Illness 72 yo M w/ hx of PD, orthostatic hypotension, and dementia presents after a period of unresponsiveness at his rehab facility. Per report, the patient was found unresponsive by his nurse, who then started CPR and called EMS. Upon EMS arrival, however, the patient was noted to have a pulse and was breathing normally with good color. An AED was attached to the patient during this period and did not recommend a shock. EMS did not believe he was in true cardiac arrest. Work-up in the ED was largely unremarkable aside from a rib fracture likely related to CPR. His ECG is in sinus rhythm. Patient is currently denying symptoms. He is A&Ox2 and answering questions appropriately. His tells me he is in his usual mental status. She does state that he has been getting very quiet at night with some sundowning as part of his progressive dementia in the setting of Parkinson's for 16 years. During my evaluation he did have occasional low BP's (70-80s/50s) that alternated with SBP's in the 90's. His stated this is baseline for him and related to dysautonomia from his Parkinson's. He usually takes midodrine for this. Of note, the patient was admitted here recently for bilateral hip fractures. Both injuries were deemed non-operative. Per his he is currently non weight bearing on his RLE. He has suffered many falls in the past related to his Parkinson's and frequently low blood pressure. Case discussed with ED physician Dr. Benton; records reviewed in EMR. History Information - Allergies/Home Medication List Allergies/Adverse Reactions: morphine Allergy (Verified 07/17/17 14:19) Home Medications: Carbidopa/Levo Cr 50/200Mg [SINEMET CR 50/200 MG (*)] 1 tab PO 5XD 12/16/14 [ Last Taken 07/12/18 18:00] Entacapone [Comtan] 200 mg PO 5XD 12/16/14 [Last Taken 07/12/18 18:00] Donepezil HCl [Aricept 5 MG (*)] 10 mg PO DAILY 07/17/17 [Last Taken 07/12/18 08 :00] Acetaminophen [Tylenol ES 500 mg (*)] 1,000 mg PO TID 06/29/18 [Last Taken 07/12 18:00] Bisacodyl [Dulcolax] 10 mg RC DAILY PRN 06/29/18 [Last Taken Unknown] Cyanocobalamin [Vitamin B12 (*)] 2,000 mcg PO DAILY 06/29/18 [Last Taken 08:00] DULoxetine [Cymbalta] 20 mg PO BID 06/29/18 [Last Taken 07/12/18 08:00] MIRTAZAPINE [Remeron 7.5 mg] 7.5 mg PO HS 06/29/18 [Last Taken 07/11/18 21:00] Midodrine HCl 10 mg PO BID 06/29/18 [Last Taken 07/12/18 08:00] Polyethylene Glycol 3350 [Miralax 17 gm (*)] 17 gm PO DAILY PRN 06/29/18 [Last Taken Unknown] Sennosides/Docusate Sodium [Senokot-S] 1 tab PO BID 06/29/18 [Last Taken 08:00] oxyCODONE IR [Oxycodone Ir (*)] 5 - 10 mg PO Q6 PRN 06/29/18 [Last Taken Unknown ] Gabapentin [Neurontin 100 MG (*)] 100 mg PO TID 07/12/18 [Last Taken 07/12/18 12 :00] Naproxen Sodium [Aleve 220 MG (*)] 220 mg PO BID 07/12/18 [Last Taken 07/12/18 08:00] I have personally reviewed and updated: family history, medical history Past Medical History: Parkinson disease, Parkinson dementia, hx pubic rami fracture 03/2017, hx fall and pneumothorax 12/2016. hx right wrist fracture. depression. insomnia with evening agitation. GERD. History of gait instability and recurrent falls, last 1 was in July of 2017 - Past Medical History Additional medical history: Parkinson disease, Parkinson dementia, hx pubic rami fracture 03/2017, hx fall and pneumothorax 12/2016. hx right wrist fracture. depression. insomnia with evening agitation noted in accompanying outpatient charts. GERD. - Surgical History Additional surgical history: bilateral knee resurfacing, bilateral hip replacements - Family History Additional family history: No family hx of dementia, mother possibly had Parkinson's - Social History Smoking Status: Unknown if ever smoked Additional social history: . Lives in [facility] for the past 1 year without any hospitalizations in the interim Review of Systems Review of Systems: ROS: 10pt was reviewed & negative except for what was stated in HPI & below Physical Exam Physical Exam: Temp Pulse Resp BP Pulse Ox 36.4 C 66 18 96/55 L 95 07/12/18 23:00 07/12/18 23:00 07/12/18 23:00 07/12/18 23:00 07/12/18 23:00 Constitutional: not in pain, chronically ill appearing Eyes: PERRL, anicteric sclera Ears, Nose, Mouth, Throat: moist mucous membranes, no oral mucosal ulcers Cardiovascular: regular rate and rhythym, systolic murmur Respiratory: no respiratory distress, clear to auscultation Gastrointestinal: normoactive bowel sounds, soft, non-tender abdomen Skin: warm, normal color Musculoskeletal: full muscle strength, pain with ROM (Hips) Neurologic: other (A&Ox2), No facial droop Psychiatric: interacting appropriately, poor memory Lab Data & Imaging Review 07/12/18 20:36 07/12/18 20:36 WBC 15.41 10^3/uL (3.80-9.50) H 07/12/18 20:36 RBC 3.18 10^6/uL (4.40-6.38) L 07/12/18 20:36 Hgb 9.6 g/dL (13.7-17.5) L 07/12/18 20:36 Hct 32.1 % (40.0-51.0) L 07/12/18 20:36 MCV 100.9 fL (81.5-99.8) H 07/12/18 20:36 MCH 30.2 pg (27.9-34.1) 07/12/18 20:36 MCHC 29.9 g/dL (32.4-36.7) L 07/12/18 20:36 RDW 13.5 % (11.5-15.2) 07/12/18 20:36 Plt Count 663 10^3/uL (150-400) H 07/12/18 20:36 MPV 8.5 fL (8.7-11.7) L 07/12/18 20:36 Neut % (Auto) 68.3 % (39.3-74.2) 07/12/18 20:36 Lymph % (Auto) 24.5 % (15.0-45.0) 07/12/18 20:36 Schley % (Auto) 4.5 % (4.5-13.0) 07/12/18 20:36 Eos % (Auto) 1.1 % (0.6-7.6) 07/12/18 20:36 Baso % (Auto) 0.3 % (0.3-1.7) 07/12/18 20:36 Nucleat RBC Rel Count 0.0 % (0.0-0.2) 07/12/18 20:36 Absolute Neuts (auto) 10.53 10^3/uL (1.70-6.50) H 07/12/18 20:36 Absolute Lymphs (auto) 3.77 10^3/uL (1.00-3.00) H 07/12/18 20:36 Absolute Monos (auto) 0.70 10^3/uL (0.30-0.80) 07/12/18 20:36 Absolute Eos (auto) 0.17 10^3/uL (0.03-0.40) 07/12/18 20:36 Absolute Basos (auto) 0.04 10^3/uL (0.02-0.10) 07/12/18 20:36 Absolute Nucleated RBC 0.00 10^3/uL (0-0.01) 07/12/18 20:36 Immature Gran % 1.3 % (0.0-1.1) H 07/12/18 20:36 Immature Gran # 0.20 10^3/uL (0.00-0.10) H 07/12/18 20:36 Sodium 137 mEq/L (135-145) 07/12/18 20:36 Potassium 4.0 mEq/L (3.3-5.0) 07/12/18 20:36 Chloride 102 mEq/L (97-110) 07/12/18 20:36 Carbon Dioxide 12 mEq/l (22-31) L 07/12/18 20:36 Anion Gap 23 mEq/L (6-14) H 07/12/18 20:36 BUN 23 mg/dL (7-23) 07/12/18 20:36 Creatinine 1.3 mg/dL (0.7-1.3) 07/12/18 20:36 Estimated GFR 54 07/12/18 20:36 Glucose 161 mg/dL (70-100) H 07/12/18 20:36 Calcium 9.1 mg/dL (8.5-10.4) 07/12/18 20:36 POC Troponin I 0.01 ng/mL (0.00-0.08) 07/12/18 20:59 Imaging Review: Imaging Impressions Chest X-Ray 07/12/18 20:42 Impression: Acute nondisplaced right fourth posterior rib fracture, with no convincing evidence of a pneumothorax. Findings were discussed with Ronnie Benton MD at 21:32, on 07/12/2018. Head CT 07/12/18 20:42 Impression: Moderately advanced senescent features, with no acute intracranial abnormality identified on this unenhanced CT evaluation, or substantial change from 06/29/2018. If there is further clinical concern regarding the patient's symptoms, MR imaging is suggested, if not otherwise contraindicated. Findings were discussed with Sissy, the medical pathology teacher for Ronnie Benton MD at 21:10, on 07/12/2018. Visualized and Interpreted EKG results: Yes EKG Interpretation: Positive for: normal sinsus rhythm Assessment & Plan Assessment: 72 yo M w/ hx of PD, dementia, and orthostatic hypotension presents after period of unresponsiveness at his rehab facility. Plan: 1. Unresponsiveness - Unclear etiology; cardiac arrest seems unlikely noting pulses and good respirations were noted by EMS on arrival. Work-up in the ED has been unrevealing. ECG (personally reviewed/interpreted) in [facility] with no acute findigns. He is not tachycardic and saturating well on RA with no respiratory complaints so doubt PE. It is possible that his dysautonomia and frequently low BP played a role in this. He is currently asymptomatic and back to baseline mental status. - Admit for observation - Monitor on telemetry, trend cardiac enzymes - mIVF overnight 2. Rib fracture - 2/2 CPR performed at his living facility. He is currently denying symptoms from this. 3. Parkinson's Disease - Diagnosed 16 years ago; this has contributed to numerous falls over the years. - Continue home medications pending reconciliation 4. Dysautonomia - With frequently low BP's, related to PD. - Midodrine BID, continue pending reconciliation 5. Dementia - Per his , this has been worsening over the past few years. He is currently at baseline mental status A&Ox2. She describes that he can be very quiet at night and has begun to show signs of sundowning as well. - Minimize centrally acting medications as able 6. Hip fractures - Admitted earlier in June for bilateral hip fractures. These were treated non-operatively. The patient denies any change in his pain from this at this time. - Non weight-bearing on RLE per his - PT/OT evaluations - Consider orthopedic evaluation inpatient depending on length of stay Diet - Regular Code - Full per MOST form and discussion wit patient and Ppx - SCDs Dispo - Admit under observation status
[2018-07-13 04:54] LABS: PLATELET COUNT 451 10^3/uL (150-400)
--- NOTE | 2018-07-13 08:20 | ASMTLACE ---
SAM Comorbidities - select Answers: Dementia all that apply History of falls Opioid dependence / Chronic pain Other Notes: Parkinson's disease # of Emergency department Answers: 1-2 visits in the last 6 months Social determinants Answers: Mental health diagnosis (anxiety, depression, pers onality disorders, etc.) Score: 15 Date Signed: 07/13/2018 08:19 AM Electronically Signed By:Funmi Da Silva
[2018-07-13] MEDS: NS 1,000 ML IV SCH ×2 (09:50→20:14)
--- NOTE | 2018-07-13 10:10 | WOCRNPDOC ---
WOCRN Advanced Assessment Note - Skin Integrity Problem, Advanced Assess Right Heel Pressure Injury Dressing Type: Open to Air Kassandra Wound Tissue: Blanching Skin Integrity Problem Comment: Heel currently offloaded with pillows. Mild erythema noted however it is blanching. Skin is intact. Will order heel boots due to the patient resting his feet together which could result in pressure. Scattered scabs from previous falls noted, all in various stages of healing. Wound care will sign off. Please reconsult PRN. Left Heel Pressure Injury Dressing Type: Open to Air Skin Integrity Problem Comment: Left heel offloaded on pillows. No erythema noted, normal cap refill. Recommend using heel boots to prevent pressure from feet resting together. Wound care will sign off. Please reconsult PRN.
[2018-07-13] MEDS ORDERED: POLYETHYLENE GLYCOL 3350 17 GM PKT PO PRN (10:48)
[2018-07-13] MEDS ORDERED: LIDOCAINE 4%/MENTHOL 1% PATCH TD PRN (10:48)
[2018-07-13] MEDS ORDERED: BISACODYL 10 MG SUPP PR PRN (10:48)
[2018-07-13] MEDS: DONEPEZIL HCL 5 MG TAB PO SCH (13:22)
[2018-07-13] MEDS: DULoxetine 20 MG CAP PO SCH ×2 (13:22→20:33)
[2018-07-13] MEDS: MIDODRINE HCL 5 MG TAB PO SCH ×2 (13:22→20:32)
[2018-07-13] MEDS: oxyCODONE IR 5 MG TAB PO PRN (14:08)
[2018-07-13] MEDS: CARBIDOPA/LEVO CR 50 MG/200 MG TAB PO SCH ×3 (14:20→22:18)
[2018-07-13] MEDS: ENTACAPONE 200 MG TAB PO SCH ×3 (14:20→22:18)
--- NOTE | 2018-07-13 14:34 | HOSPPROG ---
Hospitalist Progress Note Assessment/Plan: 72-year-old man with a history of Parkinson's disease orthostatic hypotension and dementia with frequent falls is admitted after being found down and unresponsive by his nurse. Apparently when the nurse found she started CPR and called EMS when EMS arrived however the patient pulse and was transported to the hospital. Due to his dementia the patient cannot recall any of the events, he otherwise feels back to baseline and his agrees that he appears to be at his baseline today. Unfortunately I am unclear if this was at a syncopal event or a possible cardiac event. # questionable cardiac arrest, patient found down unclear if this was a syncopal event versus fall or to cardiac arrest. Currently he is back to baseline. Workup as below if everything looks fairly unremarkable he may be able to return to [facility] tomorrow. * Difficult historian given dementia * Workup possible etiologies including PE, he has a positive D-dimer will get CT angiogram * Check echocardiogram * Rule out with serial troponins * PT and OT evaluation # Parkinson's disease, complicated by autonomic insufficiency and dementia * Resume his usual medications * No obvious infection at this time. # dementia complicated by sundowning and agitation # gait instability recent falls sustaining bilateral hip fractures for which he has been at [facility] for rehab. He is currently nonweightbearing on 1 of the legs and partial weight-bearing on the other leg. * Return to [facility] for ongoing rehab post hospitalization * Physical therapy here Patient will need additional midnight stay because of multiple comorbidities and possible cardiac arrest without clear etiology on admission and further evaluation needed. Subjective: Patient new to me and chart reviewed. Denies any new pain he does complain of pain all over but apparently this is chronic for him. Has no recollection of what happened to him at the care home and friend at bedside said this is typical for him because of his dementia Objective: Vital Signs Temp Pulse Resp BP Pulse Ox 36.5 C 62 16 88/40 L 93 07/13/18 12:18 07/13/18 12:18 07/13/18 12:18 07/13/18 12:18 07/13/18 12:18 Laboratory Results 07/13/18 04:04 07/13/18 04:04 07/12/18 07/13/18 07/14/18 05:59 05:59 05:59 Intake Total 2200 Output Total 500 Balance 1700 - Physical Exam Constitutional: chronically ill appearing, uncomfortable Eyes: PERRL Ears, Nose, Mouth, Throat: moist mucous membranes Cardiovascular: regular rate and rhythym, systolic murmur Respiratory: no respiratory distress, clear to auscultation Gastrointestinal: soft, non-tender abdomen Genitourinary: no bladder fullness Skin: warm Neurologic: No AAOx3 Psychiatric: interacting appropriately ICD10 Worksheet Patient Problems: Problems Problem Status Onset Parkinson disease Acute Closed right hip fracture Acute Anemia Acute Acute encephalopathy Acute Hypoxia Acute Acute right hip pain Acute Pneumothorax, right Acute Multiple rib fractures Acute History of Parkinson's disease Acute Radial styloid fracture Acute Fracture of pubic ramus Acute Generalized weakness Acute Failure to thrive Acute Sternal contusion Acute Dehydration Acute Fracture, femur Acute Altered mental status Acute Rib fracture Acute
--- NOTE | 2018-07-13 14:42 | ECHO ---
[email or web address] [address] [address] Main: [phone] Fax: Transthoracic Echocardiogram Name: ISACC GORE MR#: [id number] Study Date: 07/13/2018 Study Time: 12:03 PM Date of : 1945 Age: 72 year(s) Height: 182.9 cm (72 in.) Weight: 63.5 kg (140 lb.) BSA: 1.83 m2 Gender: Male Examination: Echo Indication: found down, Murmur Image Quality: Adequate Contrast: Requested by: Valeria Coates BP: 88 mmHg/40 mmHg Heart Rate: Rhythm: Indication: found down, Murmur Procedure Staff State Archivist: Herminia Carmona RDCS Reading Physician: Brian Fernandez MD Requesting Provider: State Archivist: Reading Physician: Requesting Provider: Conclusions: Mild concentric LV hypertrophy. Normal global systolic LV function. The ejection fraction is visually estimated to be 55 %. Mild mitral valve regurgitation is present. Moderate tricuspid regurgitation is present. The pulmonary artery pressure is mildly increased. Right ventricular systolic pressure measures 38mmHg. Small pericardial effusion. Measurements: Chambers Valvular Assessment AV/MV Valvular Assessment TV/PV Normal Normal Normal Name Value Range Name Value Range Name Value Range Ao Carli (2D): 3.3 cm (1.4 cm-2.6 AV Vmax: 1.39 m/s (1 m/s-1.7 TR Vmax: 2.88 mm/s ( - ) cm) m/s) TR PGmax: 33 mmHg ( - ) IVSd (2D): 1.3 cm (0.6 cm-1.1 AV maxP mmHg ( - ) syst. PAP: 38 mmHg ( - ) cm) AV meanP mmHg ( - ) PV Vmax: 0.76 m/s (0.6 m/s-0.9 LVDd (2D): 4.3 cm (4.2 cm-5.9 DAO (VTI): 1.9 cm ( - ) m/s) cm) MV E Vmax: 0.59 m/s ( - ) PV PGmax: 2 mmHg ( - ) LVDs (2D): 3.1 cm (2.1 cm-4 MV A Vmax: 0.53 m/s ( - ) cm) MV E/A: 1.11 ( - ) LVPWd (2D): 1.2 cm (0.6 cm-1 cm) MV PHT: 0.066 s ( - ) LVOTd 2.1 cm 2.1 cm mm MVA (PHT): 3.3 s ( - ) LVEF (MOD4): 57 % (>=55 %) Visual EF: 55 % Patient: ISACC GORE Study Date: 07/13/2018 Page 1 of 2 12:03 PM RVDd(2D): 3.1 cm (1.9 cm-3.8 cmmm) Continued Measurements: Chambers Valvular Assessment AV/MV Valvular Assessment TV/PV Name Value Name Value Name Value LADs: 2.8 cm MV DecTime: 222 m/s CVP (est.): 5 mmHg LADs Lon.0 cm MV E' Septal: 0.08 m/s LA Area: 20.4 cm2 MV E/E' Septal: 7.20 LA Volume: 54 ml MV E/E' Lateral: 5.60 LA Volume Index: 29.5 ml/m2 Additional Vessels Name Value Ao Ascendin.1 cm Inferior Vena Cava: 3.0 cm Findings: Left Ventricle: Normal size left ventricle. Mild concentric LV hypertrophy. Normal global systolic LV function. The ejection fraction is visually estimated to be 55 %. No regional wall motion abnormality. Unable to assess diastolic dysfunction. Right Ventricle: Normal size right ventricle. Normal RV function. Left Atrium: The left atrium is normal in size. Right Atrium: The right atrium is normal in size. Mitral Valve: The mitral valve is normal in appearance and function. Mild mitral valve regurgitation is present. No mitral stenosis is present. Aortic Valve: The aortic valve is tri-leaflet. There is no significant aortic valve regurgitation. No aortic valve stenosis is present. Tricuspid Valve: The tricuspid valve is normal in appearance and function. Moderate tricuspid regurgitation is present. The pulmonary artery pressure is mildly increased. Right ventricular systolic pressure measures 38mmHg. Pulmonic Valve: The pulmonic valve is normal in appearance and function. Mild pulmonic valve regurgitation is noted. Aorta: The aorta is normal. Normal size aortic root measuring 3.3 cm. Normal size ascending aorta measuring 3.1 cm. IVC: The IVC is dilated. Pericardium: Small pericardial effusion. There is a pleural effusion present. (No Signature Object) Patient: ISACC GORE Study Date: 07/13/2018 Page 2 of 2 12:03 PM [id number]
--- NOTE | 2018-07-13 15:18 | ASMTCMCOM ---
CM Note CM Note Notes: Pt was admitted from [facility] after being found down and unresponsive. He received CPR at . It is uclear if he had a syncopal event or cardiac event. He has a dx of Parkinson's Disease and dementia and lives at [facility]. He was at for rehab after falling and sustaining bilateral hip fx. His Monica has been present. The current d/c plan is for pt to return to to continue his rehab. Date Signed: 07/13/2018 03:17 PM Electronically Signed By:SANDRA Mcmahon
[2018-07-13] MEDS ORDERED: IOPAMIDOL (ISOVUE 370) 100 ML BTL IV ONE ×2 (15:24→15:29)
--- NOTE | 2018-07-13 15:42 | PDMN ---
Medical Necessity Medical necessity: [facility] Cardiology GRG and M340 Syncope and MGMD Musculoskeletal Disease GR yo found unresponsive, tele monitoring, trend troponins, IVF, rib fx from CPR, hypotension, worsening dementia. Questionable cardiac arrest vs. syncope r/t orthostatic hypotension. Pt cont with gait instability 2nd previous hip fxs, currently non weight bearing on RLE, PT/OT ordered. BPs cont to be low 80s/40s, cont IVF. Still with leukocytosis and H&H dropping overnight from 9.6/32.1 to 8.4/26.3. Patient will need additional midnight stay because of multiple comorbidities and possible cardiac arrest without clear etiology on admission and further evaluation needed. Hx Parkinson disease, Parkinson dementia, hx pubic rami fracture 03/2017, hx fall and pneumothorax 12/2016. hx right wrist fracture. depression. insomnia with evening agitation. GERD. History of gait instability and recurrent falls, last 1 was in July of 2017, hx bilateral knee resurfacing, bilateral hip replacements. Change to IP status per MD order 07/13/18 @1439
[2018-07-13] MEDS: GABAPENTIN 100 MG CAP PO SCH ×2 (17:23→22:18)
[2018-07-13] MEDS: TRIAMCINOLONE 0.5% 15GM CREAM TP SCH ×2 (17:24→22:20)
[2018-07-13] MEDS: MIRTAZAPINE 15 MG TAB PO SCH (20:32)
[2018-07-13] MEDS: SENNOSIDES/DOCUSATE SODIUM TAB PO SCH (20:33)
[2018-07-13] MEDS: NAPROXEN SODIUM 220 MG TAB PO SCH (20:33)
[2018-07-14] MEDS: ENTACAPONE 200 MG TAB PO SCH ×5 (05:47→22:45)
[2018-07-14] MEDS: CARBIDOPA/LEVO CR 50 MG/200 MG TAB PO SCH ×5 (05:47→22:45)
[2018-07-14] MEDS: NS 1,000 ML IV SCH ×2 (05:55→18:50)
[2018-07-14] MEDS: DULoxetine 20 MG CAP PO SCH ×2 (09:35→21:08)
[2018-07-14] MEDS: MIDODRINE HCL 5 MG TAB PO SCH ×2 (09:35→21:08)
[2018-07-14] MEDS: NAPROXEN SODIUM 220 MG TAB PO SCH ×2 (09:36→21:08)
[2018-07-14] MEDS: DONEPEZIL HCL 5 MG TAB PO SCH (09:37)
[2018-07-14] MEDS: GABAPENTIN 100 MG CAP PO SCH ×3 (09:37→22:45)
[2018-07-14] MEDS: CYANO/VITAMIN B12 1000 MCG TAB PO SCH (09:38)
[2018-07-14] MEDS: oxyCODONE IR 5 MG TAB PO PRN ×2 (09:45→13:53)
[2018-07-14] MEDS: SENNOSIDES/DOCUSATE SODIUM TAB PO SCH ×2 (10:05→21:08)
--- NOTE | 2018-07-14 10:15 | PDIAF ---
- Diagnosis Diagnosis: parkinsons Code Status: Full Code - Medication Management Discharge Medications: Medications to Continue on Transfer Carbidopa/Levo Cr 50/200Mg [SINEMET CR 50/200 MG (*)] 1 tab PO 5XD 12/16/14 [ Last Taken 07/12/18 18:00] Entacapone [Comtan] 200 mg PO 5XD 12/16/14 [Last Taken 07/12/18 18:00] Donepezil HCl [Aricept 5 MG (*)] 10 mg PO DAILY 07/17/17 [Last Taken 07/12/18 08 :00] Acetaminophen [Tylenol ES 500 mg (*)] 1,000 mg PO TID 06/29/18 [Last Taken 07/12 18:00] Bisacodyl [Dulcolax] 10 mg RC DAILY PRN 06/29/18 [Last Taken Unknown] Cyanocobalamin [Vitamin B12 (*)] 2,000 mcg PO DAILY 06/29/18 [Last Taken 08:00] DULoxetine [Cymbalta] 20 mg PO BID 06/29/18 [Last Taken 07/12/18 08:00] MIRTAZAPINE [Remeron 7.5 mg] 7.5 mg PO HS 06/29/18 [Last Taken 07/11/18 21:00] Midodrine HCl 10 mg PO BID 06/29/18 [Last Taken 07/12/18 08:00] Polyethylene Glycol 3350 [Miralax 17 gm (*)] 17 gm PO DAILY PRN 06/29/18 [Last Taken Unknown] Sennosides/Docusate Sodium [Senokot-S] 1 tab PO BID 06/29/18 [Last Taken 08:00] Lidocaine 4%/Menthol 1% [Icy Hot Lidocaine/Menthol 4%/1% Patch (*)] 1 patch TD DAILY patch 07/05/18 [Last Taken 07/12/18 08:00] Lidocaine [Lidocaine Pain Relief] 1 each TD DAILY PRN 30 Days #30 adh..patch [Last Taken Unknown] Triamcinolone 0.5% [Triamcinolone 0.5% Cream (*)] 1 jd TP TID #0 cream [Last Taken 07/12/18 18:00] Gabapentin [Neurontin 100 MG (*)] 100 mg PO TID 07/12/18 [Last Taken 07/12/18 12 :00] Naproxen Sodium [Aleve 220 MG (*)] 220 mg PO BID 07/12/18 [Last Taken 07/12/18 08:00] traMADol [Ultram 50 mg (*)] 25 mg PO Q6H PRN #20 tab 07/14/18 [Last Taken Unknown] Discharge Medications: Refer to the Discharge Home Medication list for PRN reason. - Orders Services needed: Registered Nurse, Physical Therapy, Occupational Therapy, Speech Language Pathologist Isolation Type: None Diet Recommendation: no restrictions on diet - Follow Up Care Current Providers and Referrals: Olivier Johnson MD [Medical Doctor] - Patient,NotPresent [Unknown] - As per Instructions
[2018-07-14] MEDS: LIDOCAINE 4%/MENTHOL 1% PATCH TD SCH (10:19)
--- NOTE | 2018-07-14 15:33 | GDS ---
DISCHARGE DIAGNOSES: 1. Episode of unresponsiveness, for which CPR was started. It is unclear if he had true cardiac arr est, currently back to baseline. 2. Parkinson disease. 3. Hypotension secondary to autonomic dysfunction in the setting of Parkinson's. 4. Dementia secondary to Parkinson's. 5. Gait instability. 6. Bilateral hip fractures. 7. Elevated troponin, likely secondary to chest compressions, which trended down to normal. 8. Small pericardial effusion, likely secondary to chest compressions. CONSULTANTS: None. IMAGING STUDIES: 1. Head CT, July 12, 2018, showed no acute intracranial abnormality. 2. CT pulmonary angiogram, July 13, 2018, was negative for pulmonary embolism, but showed some ce ntrilobular nodular opacities suggestive of airways disease, as well as moderate compression deformit ies at multiple levels, T7, T8 and T11. Subacute fractures of bilateral ribs anteriorly were also not ed, likely secondary to chest compressions. 3. Echocardiogram, July 13, 2018, showed mild left ventricular hypertrophy, normal systolic funct ion with an ejection fraction of 55%, mild mitral regurgitation, moderate tricuspid regurgitation, an d a right ventricular systolic pressure of 38 with a small pericardial effusion, also likely secondar y to chest compressions. HISTORY: For details, please see history and physical dated July 12, 2018. In brief, the patient is a 72-year-old male with a history of Parkinson disease and associated autonomic dysfunction and g ait instability, who recently suffered a fall with bilateral hip fractures, presented to the emergenc y department after a period of unresponsiveness. He was reportedly found unresponsive by his nurse, and CPR was started. Upon arrival of EMS, he was noted to have a pulse and was breathing normally. No shock was indicated by AED. EMS doubted true cardiac arrest; however, he was brought to the [facility] and admitted for further evaluation. HOSPITAL COURSE: Patient was admitted to the cardiac telemetry unit. His initial troponin was sligh tly elevated, although this trended down to normal. He had a nonischemic EKG. An echocardiogram was performed, which showed no evidence of wall motion abnormality. Further results as above. I suspec t the small pericardial effusion is related to the chest compressions he received in the field. In a ddition, CT pulmonary angiogram was negative for pulmonary embolism. His mentation has returned to b aseline. It is noted he has been taking oxycodone for pain for his rib fractures, and this may have contributed to a period of unresponsiveness. The workup, as above, was unrevealing for other etiolog ies. His vital signs are stable. He has no abnormalities on exam. On the day of discharge, he seem ed stable to return to his nursing home facility for ongoing rehab of his bilateral hip fractures, for which he will have followup with Dr. Johnson. It is reported he is nonweightbearing on 1 leg and partial weightbearing on the other leg. He should continue with his physical therapy regimen as pre viously ordered. DISPOSITION: Patient was discharged to nursing home facility in stable condition. FOLLOWUP: 1. Dr. Olivier Johnson, orthopedic surgery. 2. Primary care. DISCHARGE MEDICATIONS: Please see [employer] for completed outpatient medication list. New medication s on discharge include: Ultram 25 mg p.o. q.6 hours p.r.n., #20, no refills. Discontinued medications: Oxycodone is discontinued due to concern for untoward side effects. He will continue all other outpatient medications as previously prescribed. /[id number]/MODL
[2018-07-14] MEDS: TRIAMCINOLONE 0.5% 15GM CREAM TP SCH ×3 (16:00→21:08)
--- NOTE | 2018-07-14 16:28 | ASMTCMCOM ---
CM Note CM Note Notes: Pt is medically stable to d/c. CM spoke to Mary Lou from [facility]. Mary Lou reports that she needs to get an auth from [facility] for pt to return. Pt only has medicare part b. DC orders sent to [facility]. PCS is completed and a copy is in pts chart. CM notified Dr. Mccarthy and pts Monica that the discharge may not occur today. CM notified Earlene of the possible d/c. CM provided Mo, RN w/ phone number to give report in case pt discharges and the instruction that PCS form will need to go w/ pt. CM to follow. Plan: [facility] Date Signed: 07/14/2018 04:27 PM Electronically Signed By:BJORN Waller
[2018-07-14] MEDS: MIRTAZAPINE 15 MG TAB PO SCH (21:07)
[2018-07-15] MEDS: NS 1,000 ML IV SCH (04:31)
[2018-07-15] MEDS: ENTACAPONE 200 MG TAB PO SCH ×3 (05:54→14:14)
[2018-07-15] MEDS: CARBIDOPA/LEVO CR 50 MG/200 MG TAB PO SCH ×3 (05:54→14:14)
[2018-07-15] MEDS: CYANO/VITAMIN B12 1000 MCG TAB PO SCH (09:12)
[2018-07-15] MEDS: DONEPEZIL HCL 5 MG TAB PO SCH (09:12)
[2018-07-15] MEDS: GABAPENTIN 100 MG CAP PO SCH (09:12)
[2018-07-15] MEDS: MIDODRINE HCL 5 MG TAB PO SCH (09:12)
[2018-07-15] MEDS: SENNOSIDES/DOCUSATE SODIUM TAB PO SCH (09:12)
[2018-07-15] MEDS: DULoxetine 20 MG CAP PO SCH (09:13)
[2018-07-15] MEDS: NAPROXEN SODIUM 220 MG TAB PO SCH (09:13)
[2018-07-15] MEDS: LIDOCAINE 4%/MENTHOL 1% PATCH TD SCH (09:14)
[2018-07-15] MEDS: TRIAMCINOLONE 0.5% 15GM CREAM TP SCH (09:17)
--- NOTE | 2018-07-15 09:47 | PDIAF ---
- Diagnosis Diagnosis: parkinsons Code Status: Full Code - Medication Management Discharge Medications: electronically signed and located in the Home Medication List. - Orders Services needed: Registered Nurse, Physical Therapy, Occupational Therapy, Speech Language Pathologist Isolation Type: None Diet Recommendation: no restrictions on diet - Follow Up Care Current Providers and Referrals: Olivier Johnson MD [Medical Doctor] - Patient,NotPresent [Unknown] - As per Instructions
[2018-07-15] MEDS: oxyCODONE IR 5 MG TAB PO PRN (10:09)
[2018-07-15 12:48] VITALS: BP 116/59
--- NOTE | 2018-07-15 14:12 | ASMTDCNOTE ---
Case Management Discharge Discharge Order Complete? Answers: Yes Patient to Obtain Answers: Other Notes: [facility] Medications Transportation Arranged Answers: KESHIA ROBERTS Complete Answers: No Case Management Transport Answers: Yes Form Complete Faxed Final Orders Answers: Yes Agency/Facility Transfer Answers: Yes Report Printed & Faxed to Receiving Agency Family Notified Answers: No Discharge Comments Notes: Pts case discussed w/ Dr. Mccarthy and TERESITA Serrano. Pt is being discharged today. Manuel Jennings was able to get auth for pt to return back to [facility]. CM provided Maggie w/ phone number to give report. CM completed PCS form and a copy is in pts chart. DC orders sent. CM available for changes. Plan: [facility] Date Signed: 07/15/2018 02:12 PM Electronically Signed By:BJORN Waller
--- NOTE | 2018-07-15 19:42 | PDDCSUM ---
Discharge Summary Discharge Summary: Please see DC summary dated 07/14/2018. Pt's discharge was delayed by one day while awaiting insurance approval to return to SNF. There are no changes to his condition or medication regimen on discharge today.
--- NOTE | 2018-07-19 21:27 | CPEKG ---
Test Reason : OPEN Blood Pressure : / mmHG Vent. Rate : 079 BPM Atrial Rate : 080 BPM P-R Int : 196 ms QRS Dur : 068 ms QT Int : 389 ms P-R-T Axes : 075 077 070 degrees QTc Int : 447 ms Sinus rhythm Atrial premature complex Anteroseptal infarct, age indeterminate Confirmed by Ronnie Benton ([id number]) on 07/19/2018 9:27:04 PM Referred By: Confirmed By:Ronnie Benton
== END 2018-07-15 15:14 | DRG 312 ==
LOC: EDUNIT# → F2W 23:11 → OBSVTOIN 07-13 14:39
PROVIDERS: ADMIT Internal Medicine; ATTEND Internal Medicine
DX: R55 Syncope and collapse (principal); S72.002A Fracture of unspecified part of neck of left femur, initial encounter for closed fracture; S72.001A Fracture of unspecified part of neck of right femur, initial encounter for closed fracture; J90 Pleural effusion, not elsewhere classified; S22.31XA Fracture of one rib, right side, initial encounter for closed fracture; T40.2X5A Adverse effect of other opioids, initial encounter; W19.XXXA Unspecified fall, initial encounter; E86.9 Volume depletion, unspecified; G31.83 Neurocognitive disorder with Lewy bodies; F02.80 Dementia in other diseases classified elsewhere, unspecified severity, without behavioral disturbance, psychotic disturbance, mood disturbance, and anxiety; R26.89 Other abnormalities of gait and mobility; Z23 Encounter for immunization; R29.6 Repeated falls; L89.619 Pressure ulcer of right heel, unspecified stage; L89.629 Pressure ulcer of left heel, unspecified stage
CPT/HCPCS: 84484-PO; 97167-GO; G0008; G0378; G8987-GO-CL; G8988-GO-CK; Q9967

== ENCOUNTER 2018-09-09 19:34 | Emergency (ER) | payer OTHER ==
--- NOTE | 2018-09-09 19:49 | EDPHY ---
H & P Time Seen by Provider: 09/09/18 19:40 HPI/ROS: CHIEF COMPLAINT: Fall with hip pain HISTORY OF PRESENT ILLNESS: Patient arrives from [facility] by EMS after multiple falls complaining of hip pain according to EMS. On arrival patient has no complaints. The patient's said he fell about 10 days ago and has some left thigh bruising but x-ray was negative. He usually gets around by wheelchair. He is in [facility]. Patient denies any complaints to me. Specifically denies headache or neck or back pain or chest pain or extremity pain. No syncope or LOC. REVIEW OF SYSTEMS: Eye: no change in vision ENT: no sore throat Cardiac: no chest pain or syncope Pulmonary: no cough or SOB Abdomen: no vomiting, diarrhea, abdominal pain Musculoskeletal: HPI Skin: Bruising on the left proximal thigh Neuro: no headache Constitutional: no fever : no urinary symptoms A comprehensive 10 point review of systems is otherwise negative aside from elements mentioned in the history of present illness. PAST MEDICAL HISTORY: Parkinson's, Depression Social history: [facility] memory care, wheelchair user General Appearance: Alert and conversant, cooperative. Eyes: No scleral icterus. ENT, Mouth: Normal mucous membranes. No external evidence of head trauma. Respiratory: Normal respiratory effort, breath sounds equal, lungs are clear to auscultation. Cardiovascular: Regular rate and rhythm. Gastrointestinal: Abdomen is soft and non tender. Neurological: Alert, face symmetric, normal motor and sensory in extremities. He has a bit of cogwheeling at baseline. He is slow to respond but will follow commands and answer simple questions appropriately. Skin: Bruising on the left thigh. A couple of abrasions which are dressed on both knees. Musculoskeletal: No spinal or upper extremity point tenderness. No lower extremity point tenderness. He does wince and flinch with internal and external rotation of each hip. His pelvis is stable. His knee and ankle joints have cogwheeling but he does not appear to have pain with range of motion of those joints. Psychiatric: Not agitated. Emergency Department course/MDM: Labs to include CPK, x-rays of both hips. was called at 7:45 p.m., she is on the way to the emergency department. 2035: X-rays both hips and left femur personally reviewed are negative for fracture. 2044: Discussed with Coby at [place] who is happy to take the patient back, he does not walk uses a wheelchair which is fine at this facility. 2099: Results discussed with patient and family, they are both wanting him to be discharged home which I think is reasonable. Oral Tylenol. CPK noted, IV fluids given, and I do not think that this requires hospitalization. Smoking Status: Unknown if ever smoked Constitutional: Initial Vital Signs Temperature (C) 36.4 C 09/09/18 19:43 Heart Rate 72 09/09/18 19:43 Respiratory Rate 20 09/09/18 19:43 Blood Pressure 97/58 L 09/09/18 19:43 O2 Sat (%) 94 09/09/18 19:43 O2 Delivery Mode Room Air Allergies/Adverse Reactions: morphine Allergy (Verified 09/09/18 19:43) Home Medications: Medication Instructions Recorded Carbidopa/Levo Cr 50/200Mg 1 tab PO 5XD 12/16/14 [SINEMET CR 50/200 MG (*)] Entacapone [Comtan] 200 mg PO 5XD 12/16/14 Donepezil HCl [Aricept 5 MG (*)] 10 mg PO DAILY 07/17/17 Acetaminophen [Tylenol ES 500 mg 1,000 mg PO TID 06/29/18 (*)] Bisacodyl [Dulcolax] 10 mg RC DAILY PRN 06/29/18 Cyanocobalamin [Vitamin B12 (*)] 2,000 mcg PO DAILY 06/29/18 DULoxetine [Cymbalta] 20 mg PO BID 06/29/18 MIRTAZAPINE [Remeron 7.5 mg] 7.5 mg PO HS 06/29/18 Midodrine HCl 10 mg PO BID 06/29/18 Polyethylene Glycol 3350 [Miralax 17 gm PO DAILY PRN 06/29/18 17 gm (*)] Sennosides/Docusate Sodium 1 tab PO BID 06/29/18 [Senokot-S] Lidocaine 4%/Menthol 1% [Icy Hot 1 patch TD DAILY patch 07/05/18 Lidocaine/Menthol 4%/1% Patch (*)] Lidocaine [Lidocaine Pain Relief] 1 each TD DAILY PRN 30 Days #30 07/05/18 adh..patch Triamcinolone 0.5% [Triamcinolone 1 jd TP TID #0 cream 07/05/18 0.5% Cream (*)] Gabapentin [Neurontin 100 MG (*)] 100 mg PO TID 07/12/18 Naproxen Sodium [Aleve 220 MG (*)] 220 mg PO BID 07/12/18 traMADol [Ultram 50 mg (*)] 25 mg PO Q6H PRN #20 tab 07/14/18 Medical Decision Making - Diagnostics Imaging Results: Imaging Impressions Hip X-Ray 09/09/18 19:47 Impression: Continued evolution of previously described fractures in the greater trochanters of the hips bilaterally, total hip arthroplasty hardware is unchanged in orientation. Hip X-Ray 09/09/18 19:47 Impression: Continued evolution of previously described fractures in the greater trochanters of the hips bilaterally, total hip arthroplasty hardware is unchanged in orientation. Femur X-Ray 09/09/18 19:49 Impression: Increased lucency about the greater trochanter/intertrochanteric region of the left hip compatible with the previously described fracture. No femoral shaft or distal femoral fracture is identified. - Data Points Laboratory Results: Laboratory Results 09/09/18 20:10 09/09/18 20:10 09/09/18 09/09/18 20:10 20:10 WBC 7.71 10^3/uL 10^3/uL (3.80-9.50) RBC 3.39 10^6/uL L 10^6/uL (4.40-6.38) Hgb 10.3 g/dL L g/dL (13.7-17.5) Hct 32.7 % L % (40.0-51.0) MCV 96.5 fL fL (81.5-99.8) MCH 30.4 pg pg (27.9-34.1) MCHC 31.5 g/dL L g/dL (32.4-36.7) RDW 13.3 % % (11.5-15.2) Plt Count 344 10^3/uL 10^3/uL (150-400) MPV 8.7 fL fL (8.7-11.7) Neut % (Auto) 79.2 % H % (39.3-74.2) Lymph % (Auto) 11.4 % L % (15.0-45.0) [place] % (Auto) 6.6 % % (4.5-13.0) Eos % (Auto) 2.1 % % (0.6-7.6) Baso % (Auto) 0.3 % % (0.3-1.7) Nucleat RBC Rel Count 0.0 % % (0.0-0.2) Absolute Neuts (auto) 6.11 10^3/uL 10^3/uL (1.70-6.50) Absolute Lymphs (auto) 0.88 10^3/uL L 10^3/uL (1.00-3.00) Absolute Monos (auto) 0.51 10^3/uL 10^3/uL (0.30-0.80) Absolute Eos (auto) 0.16 10^3/uL 10^3/uL (0.03-0.40) Absolute Basos (auto) 0.02 10^3/uL 10^3/uL (0.02-0.10) Absolute Nucleated RBC 0.00 10^3/uL 10^3/uL (0-0.01) Immature Gran % 0.4 % % (0.0-1.1) Immature Gran # 0.03 10^3/uL 10^3/uL (0.00-0.10) Sodium 138 mEq/L mEq/L (135-145) Potassium 4.2 mEq/L mEq/L (3.5-5.2) Chloride 108 mEq/L mEq/L (97-110) Carbon Dioxide 27 mEq/l mEq/l (22-31) Anion Gap 3 mEq/L L mEq/L (6-14) BUN 34 mg/dL H mg/dL (7-23) Creatinine 1.2 mg/dL mg/dL (0.7-1.3) Estimated GFR 59 Glucose 97 mg/dL mg/dL (70-100) Calcium 9.0 mg/dL mg/dL (8.5-10.4) Creatine Kinase 685 IU/L H IU/L (0-224) CK-MB (CK-2) Fraction 4.25 ng/mL ng/mL (0.00-4.55) CK-MB (CK-2) % 0.6 % % (0.0-4.0) Creatine Kinase Interp NEGATIVE (NEGATIVE) Medications Given: Discontinued Medications Acetaminophen (Tylenol) 650 mg PO EDNOW ONE Stop: 09/09/18 21:02 Last Admin: 09/09/18 21:46 Dose: 650 mg Sodium Chloride (Ns) 1,000 mls @ 0 mls/hr IV EDNOW ONE; Wide Open PRN Reason: Protocol Stop: 09/09/18 20:45 Last Admin: 09/09/18 20:55 Dose: 1,000 mls Departure - Departure Disposition: Home, Routine, Self-Care Clinical Impression: Contusion of hip and thigh Qualifiers: Encounter type: initial encounter Laterality: unspecified laterality Qualified Code(s): S70.00XA - Contusion of unspecified hip, initial encounter Condition: Good Instructions: Contusion in Adults (ED) Referrals: Earl Sherman MD [Primary Care Provider] - As per Instructions
[2018-09-09 20:28] LABS: PLATELET COUNT 344 10^3/uL (150-400)
[2018-09-09 20:40] LABS: CREATINE KINASE 685 IU/L (0-224)
[2018-09-09] MEDS ORDERED: NS 1,000 ML IV ONE (20:44)
[2018-09-09] MEDS ORDERED: ACETAMINOPHEN 325 MG TAB PO ONE (21:01)
[2018-09-09 21:49] VITALS: BP 125/74
== END 2018-09-09 22:40 | disposition home or self-care (01) ==
LOC: EDUNIT#
DX: S70.02XA Contusion of left hip, initial encounter (principal); W19.XXXA Unspecified fall, initial encounter; Y92.129 Unspecified place in nursing home as the place of occurrence of the external cause; E86.9 Volume depletion, unspecified; G20 Parkinson's disease; F32.9 Major depressive disorder, single episode, unspecified; Z96.643 Presence of artificial hip joint, bilateral; Z99.3 Dependence on wheelchair